=== PATIENT | female | born 1970 | race Caucasian/White ===

== ENCOUNTER 2024-03-22 12:56 | Emergency (ER) | payer MEDICARE, OTHER, SELFPAY ==
[2024-03-22 13:05] VITALS: BP 179/104
[2024-03-22 13:34] LABS: % Basophils 0.9 % (0-2); % Eosinophils 2.3 % (0-6); % Immature Granulocytes 0.4 % (0-0.5); % Lymphocytes 31.1 % (20.5-51.1); % Monocytes 4.3 % (1.7-9.3); Absolute Eosinophils 0.1 10^3/uL (0-0.7); Absolute Lymphocytes 1.5 10^3/uL (1.2-3.4); Absolute Monocytes 0.2 10^3/uL (0.1-0.6); Absolute Neutrophils 2.9 10^3/uL (1.4-6.5); Hematocrit 44.2 % (37.0-47.0); Hemoglobin 15.4 g/dL (12.0-16.0); Mean Corp Hgb Conc. 34.8 g/dL (33.0-37.0); Mean Corpuscular Volume 80.4 fL (81.0-99.0); Nucleated Red Blood Cells % 0 %; Platelet Count 110 10^3/uL (130-400); Red Cell Dist. Width 13.4 % (11.5-14.5); White Blood Cell Count 4.7 10^3/uL (4.8-10.8)
[2024-03-22 13:46] LABS: ALT (SGPT) 32 U/L (0-35); AST (SGOT) 32 U/L (14-36); Alkaline Phosphatase 81 U/L (38-126); Blood Urea Nitrogen 6 mg/dl (7-17); Calcium 9.1 mg/dl (8.4-10.2); Carbon Dioxide 29 mmol/L (22-30); Chloride 101 mmol/L (98-107); Glucose 179 mg/dl (70-99); Lipase 33 U/L (23-300); Potassium 3.1 mmol/L (3.5-5.1); Sodium 134 mmol/L (135-145); Total Bilirubin 0.9 mg/dl (0.2-1.3); Total Protein 6.4 g/dl (6.3-8.2); eGFR > 60.00
--- NOTE | 2024-03-22 15:35 | ED.GENMED ---
History of Present Illness
<Emma Casey PA-C - Last Filed: 03/24/24 09:16>
General
Chief Complaint: Abdominal Pain
Source: patient
Exam Limitations: none
Time Seen by Provider: 03/22/24 15:29
Nursing documentation reviewed up to this point in time: agreed with
Travel History
Have you had any contact with someone who has COVID-19?: No
Do you have any symptoms of coronavirus? Fever > 100 degrees, chills, cough, shortness of breath, sore throat, loss of taste or smell, muscle aches, or headache?: No
History of Present Illness
History of Present Illness:
pt is a 53 y/o F with h/o crohns disease s/p partial colectomy years ago
followed by dr. mcghee from GI
on stulera
here with vomiting 2-3 times a day for 10 days
she has had waxing and waning pain in her L abdomen near her ostmy
she thinks her ostomy has been less but not zero output
she has been in contact with her GI and has appt with them nex tweek
but she also hasn't been able to take her meds (she is missing her bp meds for rthe entire time)
she is on chronic onpiates, wears patch
Past History
<Emma Casey PA-C - Last Filed: 03/24/24 09:16>
Past History
ED Past Medical History: HTN, NIDDM and Other (Crohn's disease, rectovaginal fistula, PANKAJ, obesity)
ED Past Surgical History: Appendectomy, Bowel resection and Cholecystectomy
Social History
Tobacco: Smoker
Alcohol: Occasional
Drug: None
Personal: Other (Seperated)
Living: with family
Employment: Employed
Family History
Family History: Hypertension; Negative Sudden
Phy Exam
<Emma Casey PA-C - Last Filed: 03/24/24 09:16>
Physical Exam
Physical Exam:
GENERAL: Alert , uncomfortable at times
EYE: pupils equal and reactive
NECK: Supple
ENT: o/p clr, mmm.
CARDIAC: Regular rate and rhythm .
LUNGS: Clear breath sounds bilaterally, no acute respiratory distress, no wheezes/rales/rhonchi
ABDOMEN: Soft, obese, slightly distended, without focal tenderness, no r/g, no cvat, normal bowel sounds
L upper abd ostomy pink, stool in the bag;
NEUROLOGICAL: Alert and oriented, no focal neuro deficits
SKIN: Warm and dry, skin intact.
MUSCULOSKELETAL: No edema, well perfused. neg aliyah's sign
PSYCH: Normal and appropriate interaction.
Course
<Emma Casey PA-C - Last Filed: 03/24/24 09:16>
Orders/Labs/Results
Orders:
Orders
03/22/24 13:20
Complete Blood Count/With Diff Urgent
Comprehensive Metabolic Panel Urgent
Lipase Urgent
Magnesium Urgent
Comment: ADD ON
03/22/24 16:09
Electrocardiogram (*1) Urgent
Reason for Study: Abdominal Pain
CT Abd/Pel (IV only)-DH only Urgent
Comment:
Reason For Exam: left sided abd pain, h/o ostomy, vomiting x 10 day
EKG- Treatment ONCE
0.9% Sodium Chloride 1000 ml [Nss] 1,000 ml IV BOLUS
HYDROmorphone [Dilaudid] 1 mg IV NOW STA
Ondansetron Injectable [Zofran] 4 mg IV NOW STA
03/22/24 16:14
Troponin I Urgent
03/22/24 16:15
Potassium Chloride [KCl] 20 meq 0.9% Sodium Chloride 150 ml [Nss] 150 ml IV NOW
03/22/24 17:56
Add On- LAB Urgent
Tests Added?: magnesium
03/22/24 18:48
Metoclopramide [Reglan] 10 mg IV NOW STA
03/22/24 19:11
HYDROmorphone [Dilaudid] 0.5 mg IV NOW STA
Abnormal Lab Results
03/22/24
13:20
WBC 4.7 L 10^3/uL
(4.8-10.8)
RBC 5.50 H 10^6/uL
(4.20-5.40)
MCV 80.4 L fL
(81.0-99.0)
Plt Count 110 L 10^3/uL
(130-400)
MPV 11.0 H fL
(7.4-10.4)
Sodium 134 L mmol/L
(135-145)
Potassium 3.1 L mmol/L
(3.5-5.1)
BUN 6 L mg/dl
(7-17)
Creatinine 0.5 L mg/dL
(0.6-1.0)
Glucose 179 H mg/dl
(70-99)
Magnesium 1.4 L mg/dl
(1.6-2.3)
03/22/24 13:20
03/22/24 13:20
Vital Signs
Initial and Last Documented VS:
Initial Vital Signs
Temp Pulse Resp BP Pulse Ox
98.8 F 70 18 179/104 95
03/22/24 13:05 03/22/24 13:05 03/22/24 13:05 03/22/24 13:05 03/22/24 13:05
Last Documented Vital Signs
Temp Pulse Resp BP Pulse Ox
98.8 F 69 21 180/96 98
03/22/24 13:05 03/22/24 20:30 03/22/24 20:00 03/22/24 20:00 03/22/24 20:30
<Raphael Pederson PA-C - Last Filed: 03/22/24 20:38>
Orders/Labs/Results
Orders:
Orders
03/22/24 13:20
Complete Blood Count/With Diff Urgent
Comprehensive Metabolic Panel Urgent
Lipase Urgent
Magnesium Urgent
Comment: ADD ON
03/22/24 16:09
Electrocardiogram (*1) Urgent
Reason for Study: Abdominal Pain
CT Abd/Pel (IV only)-[facility] only Urgent
Comment:
Reason For Exam: left sided abd pain, h/o ostomy, vomiting x 10 day
EKG- Treatment ONCE
0.9% Sodium Chloride 1000 ml [Nss] 1,000 ml IV BOLUS
HYDROmorphone [Dilaudid] 1 mg IV NOW STA
Ondansetron Injectable [Zofran] 4 mg IV NOW STA
03/22/24 16:14
Troponin I Urgent
03/22/24 16:15
Potassium Chloride [KCl] 20 meq 0.9% Sodium Chloride 150 ml [Nss] 150 ml IV NOW
03/22/24 17:56
Add On- LAB Urgent
Tests Added?: magnesium
03/22/24 18:48
Metoclopramide [Reglan] 10 mg IV NOW STA
03/22/24 19:11
HYDROmorphone [Dilaudid] 0.5 mg IV NOW STA
Abnormal Lab Results
03/22/24
13:20
WBC 4.7 L 10^3/uL
(4.8-10.8)
RBC 5.50 H 10^6/uL
(4.20-5.40)
MCV 80.4 L fL
(81.0-99.0)
Plt Count 110 L 10^3/uL
(130-400)
MPV 11.0 H fL
(7.4-10.4)
Sodium 134 L mmol/L
(135-145)
Potassium 3.1 L mmol/L
(3.5-5.1)
BUN 6 L mg/dl
(7-17)
Creatinine 0.5 L mg/dL
(0.6-1.0)
Glucose 179 H mg/dl
(70-99)
Magnesium 1.4 L mg/dl
(1.6-2.3)
03/22/24 13:20
03/22/24 13:20
Vital Signs
Initial and Last Documented VS:
Initial Vital Signs
Temp Pulse Resp BP Pulse Ox
98.8 F 70 18 179/104 95
03/22/24 13:05 03/22/24 13:05 03/22/24 13:05 03/22/24 13:05 03/22/24 13:05
Last Documented Vital Signs
Temp Pulse Resp BP Pulse Ox
98.8 F 69 21 180/96 98
03/22/24 13:05 03/22/24 20:30 03/22/24 20:00 03/22/24 20:00 03/22/24 20:30
<Emma Casey PA-C - Last Filed: 03/24/24 09:16>
MDM/Problems Addressed
Differential Diagnosis Includes:
gastroenteritis, GERD, SBO, ileus, crohns flare
MDM/Problems Addressed:
53 y/o F with h/o crohns on stulera
here with 10 days of nauea/vomiting, approx 2-3 times per day, limiting her oral intake somewhat, she is still able to eat some but says she has vomited a lot of her medications so she stopped taking them
she has zofran which hasn't really helped
she called dher GI and has appt next week
but she has also not been taking her opiate pain meds, she wears a patch but hasn't hd her oral meds because of vomiting
she feels dehydrated
on exam her lips are dry, she is hypertensive, intermittently in pain but without abdomianl focal tenderness
she c/o pain more on her left side near ostomy
unable to tolerate PO contrast
will iimage with ct with iv contrast
appreciate her labs, normal wb, k 3.1 repleted
ekg nonischemic, trop neg
lipase normal
pending CTAP
signed out to gamal parr
<Emma Casey PA-C - Last Filed: 03/24/24 09:16>
*Critical Care Note
Total Time (30-74mins, 75-104mins- exclusive of procedures): Not Applicable
<Raphael Pederson PA-C - Last Filed: 03/22/24 20:38>
Update Note
Update Note:
1800: Assumed care of this patient from Emma Casey PA-C pending CT scan read. Patient with a history of Crohn's disease reporting vomiting greater than 1 week as well as left lower quadrant pain. Patient does not report any similarity to
past Crohn's flareups. Still having some output in the ostomy bag. No fevers.
2004: Patient reassessed, still complaining of mild pain but this is improved after repeat dosing of antiemetics and opiates. Electrolytes were repleted and she was given IV fluids. She is comfortable discharge to home and outpatient GI follow-up
given normal CT scan
ED Attending Note
<Emma Casey PA-C - Last Filed: 03/24/24 09:16>
-
Portions of this chart may have been created with voice recognition software.� Occasional wrong word or��sound alike� substitutions may have occurred due to the inherent limitations of voice recognition software.
Discharge Plan
Departure
Patient Disposition: Home (Routine Discharge)
Date of Disposition: 03/22/24
Time of Disposition: 20:36
Patient with high blood pressure during this ER visit?: Yes
Discharge Problem:
Acute left lower quadrant pain, Intractable vomiting
Instructions: Nausea and Vomiting, Adult (DC)
Prescriptions:
New
metoclopramide HCl [Reglan] 10 mg tablet
10 mg PO Q8HPRN PRN (Reason: nausea and vomiting) Qty: 9 0RF
No Action
gabapentin 400 MG capsule
400 mg PO QID
amlodipine 5 MG tablet
5 mg PO DAILY
Stelara 90 MG/ML syringe
90 mg SQ Q8W
Rx Instructions:
Last injection 05/26/2023
tizanidine 2 mg tablet
4 mg PO HS
glimepiride 4 mg tablet
2 mg PO DAILY
lisinopril 40 mg Tablet
40 mg PO DAILY
ondansetron HCl 4 mg Tablet
4 mg PO TIDPRN PRN (Reason: nausea)
duloxetine [Cymbalta] 60 mg Capsule,Delayed Release(Dr/Ec)
60 mg PO HS
Rx Instructions:
07/11/23 patient is taking with 30mg
atorvastatin [Lipitor] 10 mg Tablet
10 mg PO HS
cholecalciferol (vitamin D3) [Vitamin D3] 25 mcg (1,000 unit) Capsule
25 mcg PO DAILY
duloxetine 30 mg Capsule,Delayed Release(Dr/Ec)
30 mg PO HS
Rx Instructions:
07/11/23 patient is taking with 60mg
hydrocodone-acetaminophen 5-325 mg Tablet
1 tab PO BID PRN (Reason: severe pain)
buprenorphine [Butrans] 10 mcg/hour patch weekly
10 mcg transdermal SA
Rx Instructions:
patient applied on 07/02/23 and is still wearing it on righ shoulder
dicyclomine 10 mg Capsule
10 mg PO QIDPRN PRN (Reason: abdominal pain) Qty: 60 0RF
Referrals:
Imer Harden MD [Family Provider] -
Interventions
Interventions:
*Risk Screen - Suicide Last Done: 03/22/24 13:05
*General Assessment Last Done: 03/22/24 13:05
*Neglect/Abuse Screening Last Done: 03/22/24 13:05
*ED COVID-19 Vaccine History Last Done: 03/22/24 13:05
*Nursing Disposition Last Done: 03/22/24 21:22
XY-Kennpu-Szgpulxxeg Assessment Last Done: 03/22/24 16:08
Discharge Date and Time
Discharge Date/Time: 03/22/24 21:22
Print Language: BOLIVIAN
[2024-03-22 15:57] VITALS: BP 187/115
[2024-03-22] MEDS: DILAUDID 1 MG IV (16:15)
[2024-03-22] MEDS: ZOFRAN 4 MG IV (16:15)
[2024-03-22] MEDS: NSS 1000 IV (16:15)
[2024-03-22] MEDS: KCL 160 MEQ IV (16:33)
[2024-03-22 16:49] LABS: Troponin I < 0.012 ng/ml
[2024-03-22 17:31] VITALS: BP 149/108
[2024-03-22 18:00] VITALS: BP 164/99
[2024-03-22 18:37] LABS: Magnesium 1.4 mg/dl (1.6-2.3)
[2024-03-22 19:00] VITALS: BP 176/103
[2024-03-22] MEDS: DILAUDID 0.5 MG IV (19:17)
[2024-03-22] MEDS: REGLAN 10 MG IV (19:17)
[2024-03-22 20:00] VITALS: BP 180/96
== END 2024-03-22 21:22 | disposition home or self-care (01) ==
LOC: EMR 12:56
PROVIDERS: Emergency Medicine; Physician Assistant; EMERGENCY PHYSICIAN Emergency Medicine; FAMILY PHYSICIAN Family Medicine
DX: R10.32 Left lower quadrant pain (principal); R11.10 Vomiting, unspecified; K50.90 Crohn's disease, unspecified, without complications; I10 Essential (primary) hypertension
CPT/HCPCS: 99285; 96374; 96375 ×3; 96361; 96376; 74177; 80053; 83690; 83735; 84484; 85025; 93005; Q9967

== ENCOUNTER 2024-04-11 20:40 | Emergency (ER) | payer MEDICARE, OTHER, SELFPAY ==
[2024-04-11 20:52] VITALS: BP 188/99
[2024-04-11 23:15] LABS: Urine Albumin Negative (Neg - Trace); Urine Bilirubin Negative (Negative); Urine Character Clear (Clear); Urine Color Yellow; Urine Glucose 3+ (Negative); Urine Ketone Negative (Negative); Urine Leukocyte Negative (Negative); Urine Nitrite Negative (Negative); Urine Occult Blood Negative (Negative); Urine Urobilinogen Negative (Neg - 1+)
[2024-04-11 23:16] LABS: % Eosinophils 3.2 % (0-6); % Immature Granulocytes 0.3 % (0-0.5); % Lymphocytes 38.3 % (20.5-51.1); % Neutrophils 51.2 % (42.2-75.2); Absolute Basophils 0.1 10^3/uL (0-0.2); Absolute Eosinophils 0.2 10^3/uL (0-0.7); Absolute Lymphocytes 2.4 10^3/uL (1.2-3.4); Absolute Monocytes 0.4 10^3/uL (0.1-0.6); Absolute Neutrophils 3.2 10^3/uL (1.4-6.5); Hematocrit 42.1 % (37.0-47.0); Hemoglobin 14.9 g/dL (12.0-16.0); Mean Corp Hgb Conc. 35.4 g/dL (33.0-37.0); Mean Corpuscular Hgb 27.8 pg (27.0-31.0); Mean Corpuscular Volume 78.5 fL (81.0-99.0); Mean Platelet Volume 11.1 fL (7.4-10.4); Nucleated Red Blood Cells % 0 %; Platelet Count 127 10^3/uL (130-400); Red Blood Cell Count 5.36 10^6/uL (4.20-5.40); Red Cell Dist. Width 13.8 % (11.5-14.5); White Blood Cell Count 6.2 10^3/uL (4.8-10.8)
[2024-04-11 23:31] LABS: Lactic Acid 1.3 mmol/L (0.7-2.0)
[2024-04-11 23:39] LABS: ALT (SGPT) 31 U/L (0-35); AST (SGOT) 32 U/L (14-36); Albumin 4.1 g/dl (3.5-5.0); Alkaline Phosphatase 117 U/L (38-126); Blood Urea Nitrogen 20 mg/dl (7-17); Calcium 9.2 mg/dl (8.4-10.2); Carbon Dioxide 24 mmol/L (22-30); Chloride 104 mmol/L (98-107); Glucose 166 mg/dl (70-99); Lipase 82 U/L (23-300); Potassium 3.5 mmol/L (3.5-5.1); Sodium 138 mmol/L (135-145); Total Bilirubin 0.6 mg/dl (0.2-1.3); Total Protein 6.7 g/dl (6.3-8.2); eGFR > 60.00
--- NOTE | 2024-04-12 00:46 | ED.GENMED ---
History of Present Illness
<GLORIA Almeida - Last Filed: 04/12/24 05:40>
General
Chief Complaint: Abdominal Pain
Source: patient and records
Exam Limitations: none
Time Seen by Provider: 04/12/24 00:31
Travel History
Have you had any contact with someone who has COVID-19?: No
Do you have any symptoms of coronavirus? Fever > 100 degrees, chills, cough, shortness of breath, sore throat, loss of taste or smell, muscle aches, or headache?: No
History of Present Illness
History of Present Illness:
53 year old female with hx of Crohns s/p colectomy in 2006, didi, appy, DM, HTN, PANKAJ, chronic back pain on opioids who presents for worsening of R abdominal pain that began 1899. Pt was seen here on 03/22/24 for nausea and vomiting. CT of
the abdomen was WNL. Electrolytes were repleted. Pt given antiemetics and opiates and was discharged. Since then, pt has had intermittent nausea and vomiting. She had a telehealth appointment with her GI Dr. Ardon who sent pt out for stool culture
which she sent submitted to the lab yesterday. Pt has chronic dull lower abdominal pain. Yesterday she developed quirino RLQ abdominal pain that radiates across her abdomen. Pain is 10/10 currently. She reports nausea. No vomiting today. She reports
diarrhea output from her ostomy. Denies fevers/chills, cough, chest pain, SOB, bloody stool, dysuria, hematuria, flank pain. She took a dose of hydrocodone-acetaminophen Tuesday at 1600 with minimal relief of her pain.
Past History
<GLORIA Almeida - Last Filed: 04/12/24 05:40>
Past History
ED Past Medical History: HTN, NIDDM and Other (Crohn's disease, rectovaginal fistula, PANKAJ, obesity)
ED Past Surgical History: Appendectomy, Bowel resection and Cholecystectomy
Social History
Tobacco: Smoker
Alcohol: Occasional
Drug: None
Personal: Other (Seperated)
Living: with family
Employment: Employed
Family History
Family History: Hypertension; Negative Sudden
Review of Systems
<Aye Swanson [facility] - Last Filed: 04/12/24 05:40>
Review of Systems
Allergies reviewed?: Yes
All Other Systems: ROS reviewed and negative except as documented in HPI and ROS
Constitutional: Reports no symptoms
EENT: Reports no symptoms
Respiratory: Reports no symptoms
Cardiac: Reports no symptoms
ABD/GI: Reports abdominal pain, nausea and diarrhea
: Reports no symptoms
Musculoskeletal: Reports no symptoms
Skin: Reports no symptoms
Neurological: Reports no symptoms
Endocrine: Reports no symptoms
Hematologic/Lymphatic: Reports no symptoms
Psychiatric: Reports no symptoms
Phy Exam
<Aye Swanson [facility] - Last Filed: 04/12/24 05:40>
General Physical Exam
General Presentation: moderate distress (due to pain)
General age: appears stated age
General Skin: warm and dry
General Habitus: obese
General Mental: alert
General Hydration: appears well hydrated
Cardiovascular Exam
Cardiovascular Exam: regular rate/rhythm, no edema, no gallop and no murmur
Pulmonary Exam
Pulmonary Exam: lungs clear, no respiratory distress, no rales, no crackles, no rhonchi, no wheezing and no cough
Gastrointestinal Exam
Gastrointestinal Exam: normal bowel sounds, soft, no pulsatile mass, non distended and surgical scar (multiple across the abdomen)
External Findings: colostomy (LUQ)
Palpation: left lower quadrant: Mild tenderness and right lower quadrant: Moderate tenderness
Neurological Exam
Neurological Exam: alert and oriented x3
Skin Exam
Skin Exam: normal color and warm/dry
Psychiatric Exam
Psychiatric Exam: normal mood/affect
Course
<GLORIA Almeida - Last Filed: 04/12/24 05:40>
Orders/Labs/Results
Orders:
Orders
04/11/24 23:05
CBC/With Diff [Complete Blood Count/With Diff] Urgent
Comprehensive Metabolic Panel Urgent
Lactic Acid Urgent
Lipase Urgent
Blood Culture Urgent
ERIKA Source: Blood/Venous
Specimen Description:
04/11/24 23:08
UA Reflex to Culture [Urinalysis Reflex To Culture] Urgent
Date Specimen was Collected: 04/11/24
Time Specimen was Collected: 23:07
04/12/24 00:54
CT Abd/pel W Iv And Oral Contr Urgent
Comment:
Reason For Exam: lower abd pain, diarrhea, weight loss
0.9% Sodium Chloride 1000 ml [Nss] 1,000 ml IV BOLUS
HYDROmorphone [Dilaudid] 0.5 mg IV NOW STA
Iohexol [Omnipaque] See Protocol PO NOW STA
Ondansetron Injectable [Zofran] 4 mg IV NOW STA
04/12/24 03:01
HYDROmorphone [Dilaudid] 0.5 mg .ROUTE .STK-MED ONE
04/12/24 03:20
HYDROmorphone [Dilaudid] 0.5 mg IV NOW STA
Abnormal Lab Results
04/11/24 04/11/24
23:05 23:08
MCV 78.5 L fL
(81.0-99.0)
Plt Count 127 L 10^3/uL
(130-400)
MPV 11.1 H fL
(7.4-10.4)
BUN 20 H mg/dl
(7-17)
Glucose 166 H mg/dl
(70-99)
Urine Glucose 3+ A
(Negative)
04/11/24 23:05
04/11/24 23:05
Vital Signs
Initial and Last Documented VS:
Initial Vital Signs
Temp Pulse Resp BP Pulse Ox
98.6 F 69 18 188/99 96
04/11/24 20:52 04/11/24 20:52 04/11/24 20:52 04/11/24 20:52 04/11/24 20:52
Last Documented Vital Signs
Temp Pulse Resp BP Pulse Ox
98.6 F 69 18 133/75 96
04/11/24 20:52 04/11/24 20:52 04/11/24 20:52 04/12/24 04:32 04/11/24 20:52
<Adia Barbosa, DO - Last Filed: 04/12/24 04:54>
Orders/Labs/Results
Orders:
Orders
04/11/24 23:05
CBC/With Diff [Complete Blood Count/With Diff] Urgent
Comprehensive Metabolic Panel Urgent
Lactic Acid Urgent
Lipase Urgent
Blood Culture Urgent
ERIKA Source: Blood/Venous
Specimen Description:
04/11/24 23:08
UA Reflex to Culture [Urinalysis Reflex To Culture] Urgent
Date Specimen was Collected: 04/11/24
Time Specimen was Collected: 23:07
04/12/24 00:54
CT Abd/pel W Iv And Oral Contr Urgent
Comment:
Reason For Exam: lower abd pain, diarrhea, weight loss
0.9% Sodium Chloride 1000 ml [Nss] 1,000 ml IV BOLUS
HYDROmorphone [Dilaudid] 0.5 mg IV NOW STA
Iohexol [Omnipaque] See Protocol PO NOW STA
Ondansetron Injectable [Zofran] 4 mg IV NOW STA
04/12/24 03:01
HYDROmorphone [Dilaudid] 0.5 mg .ROUTE .STK-MED ONE
04/12/24 03:20
HYDROmorphone [Dilaudid] 0.5 mg IV NOW STA
Abnormal Lab Results
04/11/24 04/11/24
23:05 23:08
MCV 78.5 L fL
(81.0-99.0)
Plt Count 127 L 10^3/uL
(130-400)
MPV 11.1 H fL
(7.4-10.4)
BUN 20 H mg/dl
(7-17)
Glucose 166 H mg/dl
(70-99)
Urine Glucose 3+ A
(Negative)
04/11/24 23:05
04/11/24 23:05
Vital Signs
Initial and Last Documented VS:
Initial Vital Signs
Temp Pulse Resp BP Pulse Ox
98.6 F 69 18 188/99 96
04/11/24 20:52 04/11/24 20:52 04/11/24 20:52 04/11/24 20:52 04/11/24 20:52
Last Documented Vital Signs
Temp Pulse Resp BP Pulse Ox
98.6 F 69 18 133/75 96
04/11/24 20:52 04/11/24 20:52 04/11/24 20:52 04/12/24 04:32 04/11/24 20:52
<GLORIA Almeida - Last Filed: 04/12/24 05:40>
MDM/Problems Addressed
Differential Diagnosis Includes:
Crohn's flare, SBO, ischemic bowel
MDM/Problems Addressed:
53 year old female who present with RLQ abdominal pain that began Tuesday.
Chronic conditions affecting care: DM, HTN, Previous abdomnial surgery (cholecystectomy, appendectomy, bowel resection) and Other (Crohns, chronic back pain)
<GLORIA Almeida - Last Filed: 04/12/24 05:40>
*Critical Care Note
Total Time (30-74mins, 75-104mins- exclusive of procedures): Not Applicable
<Adia Barbosa DO - Last Filed: 04/12/24 04:54>
*Radiology
Radiology exam reviewed: radiology read reviewed
*Pulse Oximetry
Patient hypoxic: no
ED Attending Note
<GLORIA Almeida - Last Filed: 04/12/24 05:40>
-
Portions of this chart may have been created with voice recognition software.� Occasional wrong word or��sound alike� substitutions may have occurred due to the inherent limitations of voice recognition software.
<Adia Barbosa DO - Last Filed: 04/12/24 04:54>
ED Attending Note
Patient seen and examined by attending physician: Yes
I performed the substantive portion of visit, reviewed & personally made and approve the management plan that is documented in note by myself or CORNELIO.: Yes
I performed a history and physical exam of patient and discussed management with resident, I reviewed resident's note and agree with documented findings and plan of care.: Yes
ED Attending Note:
This is a 53-year-old woman who has history of Crohn's disease, prior history of partial colectomy with colostomy. Maintained on Stelara and follows with GI, Dr. Ardon.
She does admit to some chronic mild lower abdominal pain and is prescribed Vicodin as well as had been maintained on Butrans patch which was recently discontinued.
She complains of persistent lower abdominal pain, intermittent vomiting, significant diarrhea and reports approximately 20 to 30 pound unintentional weight loss over the past month.
She has not had a fever nor chills. She denies bloody stools.
She was evaluated in this ED March 22 and at that time complaining of primarily left lower quadrant pain as well as significant nausea and vomiting. Labs showed mild hypokalemia, CT abdomen pelvis with IV contrast only was unremarkable.
Since that time she admits that nausea and vomiting have improved but she does continue with sporadic episodes of nonbloody vomitus, continues with diarrhea and lower abdominal pain. Stool cultures were sent out yesterday as per GI request.
Generalized lower abdominal pain has worsened, especially tonight and primarily left lower quadrant. She took a Vicodin earlier today without improvement in pain.
GENERAL: 53-year-old woman appears somewhat older than stated age, bright and alert, pleasant, appears in no acute distress.
EYE: anicteric
NECK: Supple, nontender, no meningismus, no significant adenopathy.
ENT: oral mucosa is moist. No rhinorrhea.
CARDIAC: Regular rate and rhythm. no murmur.
LUNGS: Clear breath sounds bilaterally, no acute respiratory distress, no wheezes/rales/rhonchi
ABDOMEN: Soft, nondistended, moderate generalized tenderness mid to lower abdomen without rebound or guarding or rigidity, mildly hyperactive bowel sounds. Colostomy left lower quadrant with small amount of liquid stool within the bag. no cvat.
NEUROLOGICAL: Alert and oriented x3, no focal neuro deficits.
SKIN: Warm and dry, normal color, skin intact. No rash.
MUSCULOSKELETAL: No C/C/E. peripheral pulses are full and equal b/l. No palpable tenderness.
PSYCH: Normal and appropriate interaction.
Concern for acute Crohn's flare, infectious colitis, partial small bowel obstruction, opioid withdrawal syndrome as Butrans patch was recently discontinued.
Labs thus far reassuring with normal white blood cell count of 6.2. Normal H&H. Chemistries are unremarkable.
Urinalysis is unremarkable save for +3 glucose. Specific gravity is normal at 1.020.
Will medicate for pain and nausea, initiate IV fluids and will plan for CT abdomen pelvis with oral and IV contrast.
04/12/[address] abdomen pelvis shows no bowel obstruction or perforation. There is evidence of subtotal colectomy with left lower quadrant colostomy. No evidence of inflammatory bowel disease.
As above, labs are reassuring, within normal limits.
I suspect an exacerbation of chronic abdominal pain but there is no evidence of exacerbation of inflammatory bowel disease.
Recommend follow-up with manager foreign for further evaluation.
Discharge Plan
Departure
Patient Disposition: Home (Routine Discharge)
Date of Disposition: 04/12/24
Time of Disposition: 04:52
Patient with high blood pressure during this ER visit?: No
Condition: Good
Discharge Problem:
acute on chronic abdominal pain
Instructions: Abdominal Pain
Prescriptions:
No Action
gabapentin 400 MG capsule
400 mg PO QID
amlodipine 5 MG tablet
5 mg PO DAILY
Stelara 90 MG/ML syringe
90 mg SQ Q8W
Rx Instructions:
Last injection 05/26/2023
tizanidine 2 mg tablet
4 mg PO HS
glimepiride 4 mg tablet
2 mg PO DAILY
lisinopril 40 mg Tablet
40 mg PO DAILY
ondansetron HCl 4 mg Tablet
4 mg PO TIDPRN PRN (Reason: nausea)
duloxetine [Cymbalta] 60 mg Capsule,Delayed Release(Dr/Ec)
60 mg PO HS
Rx Instructions:
07/11/23 patient is taking with 30mg
atorvastatin [Lipitor] 10 mg Tablet
10 mg PO HS
cholecalciferol (vitamin D3) [Vitamin D3] 25 mcg (1,000 unit) Capsule
25 mcg PO DAILY
duloxetine 30 mg Capsule,Delayed Release(Dr/Ec)
30 mg PO HS
Rx Instructions:
07/11/23 patient is taking with 60mg
hydrocodone-acetaminophen 5-325 mg Tablet
1 tab PO BID PRN (Reason: severe pain)
buprenorphine [Butrans] 10 mcg/hour patch weekly
10 mcg transdermal SA
Rx Instructions:
patient applied on 07/02/23 and is still wearing it on righ shoulder
dicyclomine 10 mg Capsule
10 mg PO QIDPRN PRN (Reason: abdominal pain) Qty: 60 0RF
metoclopramide HCl [Reglan] 10 mg tablet
10 mg PO Q8HPRN PRN (Reason: nausea and vomiting) Qty: 9 0RF
Referrals:
Elvira Ardon MD [Active] - Call in 1-3 days for appt
Imer Harden MD [Family Provider] -
Interventions
Interventions:
*Risk Screen - Suicide Last Done: 04/11/24 20:52
*General Assessment Last Done: 04/11/24 20:52
*Neglect/Abuse Screening Last Done: 04/11/24 20:52
ED- Fall Risk Assessment Last Done: 04/11/24 23:16
*Nursing Disposition Last Done: 04/12/24 05:12
FJ-Lcpvgd-Ttaepfebrb Assessment Last Done: 04/11/24 23:14
Discharge Date and Time
Discharge Date/Time: 04/12/24 05:14
Print Language: TANZANIAN
[2024-04-12 00:58] VITALS: BP 149/85
[2024-04-12] MEDS: ZOFRAN 4 MG IV (01:07)
[2024-04-12] MEDS: DILAUDID 0.5 MG IV ×2 (01:07→03:20)
[2024-04-12] MEDS: OMNIPAQUE 50 ML PO (01:08)
[2024-04-12] MEDS: NSS 1000 IV (01:10)
[2024-04-12 02:00] VITALS: BP 137/73
[2024-04-12 03:00] VITALS: BP 140/81
[2024-04-12 04:32] VITALS: BP 133/75
== END 2024-04-12 05:14 | disposition home or self-care (01) ==
LOC: EMR 20:40
PROVIDERS: Emergency Medicine; EMERGENCY PHYSICIAN Emergency Medicine; FAMILY PHYSICIAN Family Medicine
DX: R10.31 Right lower quadrant pain (principal); R11.0 Nausea; R19.7 Diarrhea, unspecified; G89.29 Other chronic pain; K50.90 Crohn's disease, unspecified, without complications; E11.9 Type 2 diabetes mellitus without complications; E66.9 Obesity, unspecified; M54.9 Dorsalgia, unspecified; G47.33 Obstructive sleep apnea (adult) (pediatric); I10 Essential (primary) hypertension; F17.200 Nicotine dependence, unspecified, uncomplicated; Z93.3 Colostomy status; Z79.891 Long term (current) use of opiate analgesic; Z90.49 Acquired absence of other specified parts of digestive tract; Z98.0 Intestinal bypass and anastomosis status; Z88.5 Allergy status to narcotic agent; Z88.8 Allergy status to other drugs, medicaments and biological substances; Z91.040 Latex allergy status
CPT/HCPCS: 99285; 96374; 96375; 96361; 96376; 74177; 80053; 81003; 83605; 83690; 85025; 87040; Q9967

== ENCOUNTER 2024-04-15 07:55 | Emergency (ER) | payer MEDICARE, OTHER, SELFPAY ==
[2024-04-15 08:10] VITALS: BP 197/126
--- NOTE | 2024-04-15 09:25 | ED.GENMED ---
History of Present Illness
General
Chief Complaint: Musculo-Skeletal Complaint
Source: patient
Time Seen by Provider: 04/15/24 09:02
Travel History
Have you had any contact with someone who has COVID-19?: No
Do you have any symptoms of coronavirus? Fever > 100 degrees, chills, cough, shortness of breath, sore throat, loss of taste or smell, muscle aches, or headache?: No
History of Present Illness
History of Present Illness:
This patient is a 53-year-old female who says that yesterday at approximately noon while power washing she slipped down approximately 4-5 steps, landing in the supine position. Since that time, she has noted pain mostly in the left knee
particularly with standing or certain range of motion, but also less so in the interscapular, and right lateral neck area. She denies numbness, tingling, loss of consciousness, headache, focal weakness, central neck pain, abdominal pain, chest
pain, dyspnea, bleeding, change in vision, change in speech, dizziness, or other complaints. She is having difficulty walking which primarily prompted her visit here.
Past History
Past History
ED Past Medical History: HTN, NIDDM and Other (Crohn's disease, rectovaginal fistula, PANKAJ, obesity)
ED Past Surgical History: Appendectomy, Bowel resection, Cholecystectomy and Other (Colostomy)
Social History
Tobacco: Smoker
Alcohol: Occasional
Drug: None
Living: with family
Employment: Employed
Family History
Family History: Hypertension; Negative Sudden
Phy Exam
Physical Exam
Physical Exam:
GENERAL: Alert , in no apparent distress
EYE: pupils equal and reactive, EOMI, no photophobia
NECK: Supple, no significant adenopathy, no midline tenderness, no swelling, trachea midline, no bruising or abnormalities noted. Patient does note mild discomfort with turning head to right at the right SCM area.
ENT: o/p clr, mmm, no seaman, no raccoon, no signs of head or facial injury noted.
CARDIAC: Regular rate and rhythm .
LUNGS: Clear breath sounds bilaterally, no acute respiratory distress, no wheezes/rales/rhonchi
ABDOMEN: Soft, without focal tenderness, no r/g, colostomy noted
NEUROLOGICAL: Alert and oriented, no focal neuro deficits, motor 5 out of 5, sensory intact, cranial nerves II through XII intact
SKIN: Warm and dry, skin intact.
MUSCULOSKELETAL: Left knee with effusion noted, no warmth redness break in skin or other abnormalities. She has tenderness to palpation noted at the medial aspect of the proximal tibia as well as the lateral aspect of the proximal fibula with
palpation. No deformity. Range of motion limited due to discomfort well perfused. 2+ DP pulses noted. Pt without ttp of prox femur/hip however c/o mild discomfort there with ROM of hip.
BACK: min ttp superior t spine, no bruising
PSYCH: Normal and appropriate interaction.
Course
Orders/Labs/Results
Orders:
Orders
04/15/24 08:14
Knee, Left 4 or More Views [CR Knee - Left 4 Or More View*] Urgent
Comment:
Reason For Exam: pain after a fall
04/15/24 09:22
Crutches-Treatment ONCE
Knee Immobilizer Left-Treatmen ONCE
Oxycodone [Roxicodone] 5 mg PO NOW STA
CR Thoracic Spine 3 Views Urgent
Reason For Exam: fall
Cervical Spine 4 or 5 Vw [CR Cervical Spine 4 Or 5 Vw] Urgent
Comment:
Reason For Exam: fall
Pelvis, 1 or 2 Views CR [CR Pelvis - 1 Or 2 Views ] Urgent
Comment:
Reason For Exam: fall
04/15/24 10:58
Amlodipine [Norvasc] 10 mg PO NOW STA
Lisinopril [Zestril] 40 mg PO NOW STA
Vital Signs
Initial and Last Documented VS:
Initial Vital Signs
Temp Pulse Resp BP Pulse Ox
98.8 F 79 20 197/126 95
04/15/24 08:10 04/15/24 08:10 04/15/24 08:10 04/15/24 08:10 04/15/24 08:10
Last Documented Vital Signs
Temp Pulse Resp BP Pulse Ox
98.8 F 79 20 195/114 95
04/15/24 08:10 04/15/24 08:10 04/15/24 08:10 04/15/24 10:52 04/15/24 08:10
*Critical Care Note
Total Time (30-74mins, 75-104mins- exclusive of procedures): Not Applicable
Update Note
Update Note:
Patient presents to the Emergency Department with status post fall
Number and Complexity of Problems Addressed at the Encounter
� Chronic conditions affecting care:
� Acute Exacerbation and/or Progression of Chronic Illness:
� Differential Diagnosis includes: But not limited to knee fracture, knee sprain, vertebral fracture, etc.
Amount and/or Complexity of Data to be Reviewed and Analyzed
� I performed an independent evaluation of and my interpretation is:
EKG:
CT:
Xrays:read by me pelvis/t c spine, knee---joint effusion notd L knee, no fx, degen changes of spine
Laboratory Studies:
Other:
� Review of other/old records reveals:
� Clinical information was obtained by an independent historian:
� Prescriptions/Medications Considered but not given:
� Further testing considered but not performed:
Risk of Complications and/or Morbidity or Mortality of Patient Management
� Social determinants of health affecting care:
� Discussion with other providers (PCP, Hospitalists, Consultants, etc):
� Escalation of care including admission/observation vs risk of discharge considered:Pt will be given knee imm, crutches, ortho f/u.
ED Attending Note
-
Portions of this chart may have been created with voice recognition software.� Occasional wrong word or��sound alike� substitutions may have occurred due to the inherent limitations of voice recognition software.
Discharge Plan
Departure
Patient Disposition: Home (Routine Discharge)
Date of Disposition: 04/15/24
Time of Disposition: 11:29
Patient with high blood pressure during this ER visit?: Yes
Condition: Good
Discharge Problem:
Knee strain
Instructions: Knee Immobilizer (DC), Knee Sprain ED, How to use crutches, BLOOD PRESSURE
Prescriptions:
No Action
gabapentin 400 MG capsule
400 mg PO QID
amlodipine 5 MG tablet
5 mg PO DAILY
Stelara 90 MG/ML syringe
90 mg SQ Q8W
Rx Instructions:
Last injection 05/26/2023
tizanidine 2 mg tablet
4 mg PO HS
glimepiride 4 mg tablet
2 mg PO DAILY
lisinopril 40 mg Tablet
40 mg PO DAILY
ondansetron HCl 4 mg Tablet
4 mg PO TIDPRN PRN (Reason: nausea)
duloxetine [Cymbalta] 60 mg Capsule,Delayed Release(Dr/Ec)
60 mg PO HS
Rx Instructions:
07/11/23 patient is taking with 30mg
atorvastatin [Lipitor] 10 mg Tablet
10 mg PO HS
cholecalciferol (vitamin D3) [Vitamin D3] 25 mcg (1,000 unit) Capsule
25 mcg PO DAILY
duloxetine 30 mg Capsule,Delayed Release(Dr/Ec)
30 mg PO HS
Rx Instructions:
07/11/23 patient is taking with 60mg
hydrocodone-acetaminophen 5-325 mg Tablet
1 tab PO BID PRN (Reason: severe pain)
buprenorphine [Butrans] 10 mcg/hour patch weekly
10 mcg transdermal SA
Rx Instructions:
patient applied on 07/02/23 and is still wearing it on righ shoulder
dicyclomine 10 mg Capsule
10 mg PO QIDPRN PRN (Reason: abdominal pain) Qty: 60 0RF
metoclopramide HCl [Reglan] 10 mg tablet
10 mg PO Q8HPRN PRN (Reason: nausea and vomiting) Qty: 9 0RF
Referrals:
Imer Harden MD [Family Provider] -
Dominic Mitchell MD [Active] - Next open appointment
Activity Restrictions/Additional Instructions:
YOUR KNEE DOES NOT DEMONSTRATE A FRACTURE TODAY, HOWEVER IT IS POSSIBLE THAT YOU SUFFERED INJURY TO THE LIGAMENTS/MENISCUS. PLEASE FOLLOW UP WITH YOUR DOCTOR DIRECTED. IF YOU DEVELOP FEVER, INCREASING/NEW PAIN, NUMBNESS, GET WORSE, OR OTHER
WORRISOME SIGNS, GO TO THE ER IMMEDIATELy!
YOUR BLOOD PRESSURE WAS ALSO NOTED TO BE ELEVATED. TAKE YOUR MEDICATINO DIRECTED AND HAVE IT RECHECKED WITH YOUR PCP TOMORROW.
Interventions
Interventions:
*General Assessment Last Done: 04/15/24 09:33
ED- Fall Risk Assessment Last Done: 04/15/24 09:33
ED-Musculoskeletal Assessment Last Done: 04/15/24 09:33
Discharge Date and Time
Print Language: SWEDISH
[2024-04-15] MEDS: ROXICODONE 5 MG PO (09:30)
[2024-04-15 10:52] VITALS: BP 195/114
[2024-04-15] MEDS: NORVASC 10 MG PO (11:01)
[2024-04-15] MEDS: ZESTRIL 40 MG PO (11:01)
== END 2024-04-15 12:03 | disposition home or self-care (01) ==
LOC: EMR 07:55
PROVIDERS: EMERGENCY PHYSICIAN Emergency Medicine; FAMILY PHYSICIAN Family Medicine
DX: S83.92XA Sprain of unspecified site of left knee, initial encounter (principal); W01.0XXA Fall on same level from slipping, tripping and stumbling without subsequent striking against object, initial encounter; E11.9 Type 2 diabetes mellitus without complications; E66.9 Obesity, unspecified; I10 Essential (primary) hypertension; G47.33 Obstructive sleep apnea (adult) (pediatric); F17.200 Nicotine dependence, unspecified, uncomplicated; K50.90 Crohn's disease, unspecified, without complications; Z82.49 Family history of ischemic heart disease and other diseases of the circulatory system; Z90.49 Acquired absence of other specified parts of digestive tract; Z93.3 Colostomy status; Z98.1 Arthrodesis status
CPT/HCPCS: 99283; 29505; 72050; 72072; 72170; 73564

== ENCOUNTER 2024-04-25 13:16 | Emergency (ER) | payer MEDICARE, OTHER, SELFPAY ==
[2024-04-25 13:21] VITALS: BP 188/117
--- NOTE | 2024-04-25 13:42 | ED.GENMED ---
History of Present Illness
General
Chief Complaint: Blood Pressure Problem
Time Seen by Provider: 04/25/24 13:26
Travel History
Have you had any contact with someone who has COVID-19?: No
Do you have any symptoms of coronavirus? Fever > 100 degrees, chills, cough, shortness of breath, sore throat, loss of taste or smell, muscle aches, or headache?: No
History of Present Illness
History of Present Illness:
53-year-old female with history of [id number] diabetes and hypertension presents to the emergency department for evaluation of multiple complaints. She notes having intermittent chest discomfort ongoing for the past 6 to 7 days with no
obvious provoking or palliating factors. Denies any fevers, chills, sweats, shortness of breath. She notes that she is also had ongoing right shoulder and bilateral leg pain after just over 1 week ago, she was evaluated in this emergency
department for the fall. She also notes that her blood sugar of 145 and a she is not on insulin
Past History
Past History
ED Past Medical History: HTN, NIDDM and Other (Crohn's disease, rectovaginal fistula, PANKAJ, obesity)
ED Past Surgical History: Appendectomy, Bowel resection, Cholecystectomy and Other (Colostomy)
Social History
Tobacco: Smoker
Alcohol: Occasional
Drug: None
Personal: Other (Seperated)
Living: with family
Employment: Employed
Family History
Family History: Hypertension; Negative Sudden
Review of Systems
Review of Systems
Allergies reviewed?: Yes
All Other Systems: ROS reviewed and negative except as documented in HPI and ROS
Phy Exam
Physical Exam
Physical Exam:
GEN: Well appearing, NAD, WDWN
HEENT: Oral mucosa moist, no scleral icterus
Cardiac: Regular rate And rhythm, no murmurs
Lung: No respiratory distress, no tachypnea, Lungs clear to auscultation bilaterally
MSK: No gross deformity or injuries
Skin: Good color, no pallor or jaundice, no rashes
Neuro: AO x3, moves all extremities freely
Psych: Calm, cooperative
Course
Orders/Labs/Results
Orders:
Orders
04/25/24 13:16
Electrocardiogram (*1) Urgent
Reason for Study: Chest Pain
EKG- Treatment ONCE
04/25/24 13:40
CR Chest - 2 Views Urgent
Comment:
Reason For Exam: chest pain
04/25/24 14:00
Complete Blood Count/With Diff Urgent
Comprehensive Metabolic Panel Urgent
Troponin I Urgent
04/25/24 14:04
Urinalysis Reflex To Culture Urgent
Date Specimen was Collected: 04/25/24
Time Specimen was Collected: 14:03
04/25/24 14:22
Ketorolac [Toradol] 15 mg IV NOW STA
Abnormal Lab Results
04/25/24 04/25/24 04/25/24
13:46 14:00 14:04
RBC 5.51 H 10^6/uL
(4.20-5.40)
MCV 78.8 L fL
(81.0-99.0)
MPV 10.9 H fL
(7.4-10.4)
Glucose 196 H mg/dl
(70-99)
Urine Glucose 3+ A
(Negative)
POC Glucose 224 H mg/dl
(70-99)
04/25/24 14:00
04/25/24 14:00
Vital Signs
Initial and Last Documented VS:
Initial Vital Signs
Temp Pulse Resp BP Pulse Ox
98.3 F 85 18 188/117 95
04/25/24 13:21 04/25/24 13:21 04/25/24 13:21 04/25/24 13:21 04/25/24 13:21
Last Documented Vital Signs
Temp Pulse Resp BP Pulse Ox
98.3 F 84 18 147/84 96
04/25/24 13:21 04/25/24 15:25 04/25/24 15:25 04/25/24 15:25 04/25/24 15:25
MDM/Problems Addressed
MDM/Problems Addressed:
53-year-old female presents with chest pain and elevated blood glucose readings. Chest pain is likely musculoskeletal given her nonischemic EKG and unremarkable troponins. Pain also improved after Toradol and is reproducible on exam which again is
reassuring for musculoskeletal etiology. As far as her glucose it is mildly elevated, likely a product more of her dietary indiscretions that it is rental sales representative of a true metabolic derangement. Counseled the patient on glycemic index dietary
recommendations
Comment
Comment:
EKG independently interpreted by me shows a normal sinus rhythm at a rate of [address] changes concerning for ischemia, QTc of 435
*Critical Care Note
Total Time (30-74mins, 75-104mins- exclusive of procedures): Not Applicable
ED Attending Note
-
Portions of this chart may have been created with voice recognition software.� Occasional wrong word or��sound alike� substitutions may have occurred due to the inherent limitations of voice recognition software.
Discharge Plan
Departure
Patient Disposition: Home (Routine Discharge)
Date of Disposition: 04/25/24
Time of Disposition: 15:46
Patient with high blood pressure during this ER visit?: Yes
Discharge Problem:
Chest pain, musculoskeletal, Elevated blood pressure reading
Instructions: High Blood Pressure (DC)
Prescriptions:
New
diclofenac sodium 75 mg tablet,delayed release (DR/EC)
75 mg PO BID 7 Days Qty: 14 0RF
No Action
gabapentin 400 MG capsule
400 mg PO QID
amlodipine 5 MG tablet
5 mg PO DAILY
Stelara 90 MG/ML syringe
90 mg SQ Q8W
Rx Instructions:
Last injection 05/26/2023
tizanidine 2 mg tablet
4 mg PO HS
glimepiride 4 mg tablet
2 mg PO DAILY
lisinopril 40 mg Tablet
40 mg PO DAILY
ondansetron HCl 4 mg Tablet
4 mg PO TIDPRN PRN (Reason: nausea)
duloxetine [Cymbalta] 60 mg Capsule,Delayed Release(Dr/Ec)
60 mg PO HS
Rx Instructions:
07/11/23 patient is taking with 30mg
atorvastatin [Lipitor] 10 mg Tablet
10 mg PO HS
cholecalciferol (vitamin D3) [Vitamin D3] 25 mcg (1,000 unit) Capsule
25 mcg PO DAILY
duloxetine 30 mg Capsule,Delayed Release(Dr/Ec)
30 mg PO HS
Rx Instructions:
07/11/23 patient is taking with 60mg
hydrocodone-acetaminophen 5-325 mg Tablet
1 tab PO BID PRN (Reason: severe pain)
buprenorphine [Butrans] 10 mcg/hour patch weekly
10 mcg transdermal SA
Rx Instructions:
patient applied on 07/02/23 and is still wearing it on righ shoulder
dicyclomine 10 mg Capsule
10 mg PO QIDPRN PRN (Reason: abdominal pain) Qty: 60 0RF
metoclopramide HCl [Reglan] 10 mg tablet
10 mg PO Q8HPRN PRN (Reason: nausea and vomiting) Qty: 9 0RF
Referrals:
Imer Harden MD [Family Provider] -
Stand Alone Forms: Return to Work
Interventions
Interventions:
*Risk Screen - Suicide Last Done: 04/25/24 13:21
*General Assessment Last Done: 04/25/24 13:21
*Neglect/Abuse Screening Last Done: 04/25/24 13:21
ED- Fall Risk Assessment Last Done: 04/25/24 13:46
*ED COVID-19 Vaccine History Last Done: 04/25/24 15:52
*Nursing Disposition Last Done: 04/25/24 15:52
ED- Cardiac Assessment Last Done: 04/25/24 14:51
ED- Neurological Assessment Last Done: 04/25/24 14:51
ED- Pulmonary Assessment Last Done: 04/25/24 15:25
Discharge Date and Time
Discharge Date/Time: 04/25/24 15:53
Print Language: OCCITAN
[2024-04-25 13:49] LABS: Glucose - Point of Care 224 mg/dl (70-99)
[2024-04-25 14:10] LABS: Urine Albumin Negative (Neg - Trace); Urine Bilirubin Negative (Negative); Urine Character Clear (Clear); Urine Color Yellow; Urine Glucose 3+ (Negative); Urine Ketone Negative (Negative); Urine Leukocyte Negative (Negative); Urine Nitrite Negative (Negative); Urine Occult Blood Negative (Negative); Urine Specific Gravity 1.015 (<1.030); Urine Urobilinogen Negative (Neg - 1+)
[2024-04-25 14:21] LABS: % Basophils 0.9 % (0-2); % Eosinophils 2.6 % (0-6); % Immature Granulocytes 0.2 % (0-0.5); % Lymphocytes 32.3 % (20.5-51.1); % Monocytes 5.1 % (1.7-9.3); % Neutrophils 58.9 % (42.2-75.2); Absolute Basophils 0.1 10^3/uL (0-0.2); Absolute Eosinophils 0.2 10^3/uL (0-0.7); Absolute Lymphocytes 2.2 10^3/uL (1.2-3.4); Absolute Monocytes 0.3 10^3/uL (0.1-0.6); Absolute Neutrophils 3.9 10^3/uL (1.4-6.5); Hematocrit 43.4 % (37.0-47.0); Hemoglobin 15.3 g/dL (12.0-16.0); Mean Corp Hgb Conc. 35.3 g/dL (33.0-37.0); Mean Corpuscular Hgb 27.8 pg (27.0-31.0); Mean Corpuscular Volume 78.8 fL (81.0-99.0); Mean Platelet Volume 10.9 fL (7.4-10.4); Nucleated Red Blood Cells % 0 %; Platelet Count 159 10^3/uL (130-400); Red Blood Cell Count 5.51 10^6/uL (4.20-5.40); Red Cell Dist. Width 13.7 % (11.5-14.5); White Blood Cell Count 6.7 10^3/uL (4.8-10.8)
[2024-04-25] MEDS: TORADOL 15 MG IV (14:34)
[2024-04-25 14:39] LABS: ALT (SGPT) 29 U/L (0-35); AST (SGOT) 29 U/L (14-36); Albumin 4.3 g/dl (3.5-5.0); Alkaline Phosphatase 126 U/L (38-126); Blood Urea Nitrogen 14 mg/dl (7-17); Calcium 9.5 mg/dl (8.4-10.2); Carbon Dioxide 28 mmol/L (22-30); Chloride 100 mmol/L (98-107); Glucose 196 mg/dl (70-99); Potassium 3.9 mmol/L (3.5-5.1); Sodium 137 mmol/L (135-145); Total Bilirubin 0.8 mg/dl (0.2-1.3); eGFR > 60.00
[2024-04-25 14:42] LABS: Troponin I < 0.012 ng/ml
[2024-04-25 14:51] VITALS: BP 121/73
[2024-04-25 15:25] VITALS: BP 147/84
== END 2024-04-25 15:53 | disposition home or self-care (01) ==
LOC: EMR 13:16
PROVIDERS: Physician Assistant; EMERGENCY PHYSICIAN Emergency Medicine; FAMILY PHYSICIAN Family Medicine
DX: R07.89 Other chest pain (principal); I10 Essential (primary) hypertension; E11.9 Type 2 diabetes mellitus without complications; K50.90 Crohn's disease, unspecified, without complications; G47.33 Obstructive sleep apnea (adult) (pediatric); E66.9 Obesity, unspecified
CPT/HCPCS: 99283; 71046; 80053; 81003; 82962; 84484; 85025; 93005

== ENCOUNTER → 2024-05-07 08:13 | Outpatient (REF) | payer MEDICARE, OTHER, SELFPAY | LOC: DHCBC/DCA 08:13 | PROVIDERS: ATTENDING PHYSICIAN Internal Medicine Cardiovascular Disease; FAMILY PHYSICIAN Family Medicine | DX: R06.02 Shortness of breath (principal) | CPT/HCPCS: 78452; 93017; A9500; J2785 ==

== ENCOUNTER → 2024-05-21 10:21 | Outpatient (REF) | payer MEDICARE, OTHER, SELFPAY | LOC: RCS 10:21 | PROVIDERS: ATTENDING PHYSICIAN Internal Medicine Cardiovascular Disease; FAMILY PHYSICIAN Family Medicine | DX: R06.02 Shortness of breath (principal) | CPT/HCPCS: 93306 ==

== ENCOUNTER 2024-06-15 14:29 | Emergency (ER) | payer MEDICARE, OTHER, SELFPAY ==
[2024-06-15 14:43] VITALS: BP 167/98
[2024-06-15 17:14] VITALS: BP 175/94
--- NOTE | 2024-06-15 17:19 | ED.GENMED ---
History of Present Illness
General
Chief Complaint: Abdominal Pain
Source: patient
Exam Limitations: none
Time Seen by Provider: 06/15/24 16:57
History of Present Illness
History of Present Illness:
Patient complaining of progressive lower abdominal pain. Started 3 to 4 days ago. Associated with nausea and vomiting. Currently only nauseous. Decreased output from her ostomy bag history of same in the past. No blood in her stool. No fever.
Pain is diffuse across the lower abdomen but more right lower quadrant at this time
Past History
Past History
ED Past Medical History: HTN, NIDDM and Other (Crohn's disease, rectovaginal fistula, PANKAJ, obesity)
ED Past Surgical History: Appendectomy, Bowel resection, Cholecystectomy and Other (Colostomy)
Social History
Tobacco: Smoker
Alcohol: Occasional
Drug: None
Personal: Other (Seperated)
Living: with family
Employment: Employed
Family History
Family History: Hypertension; Negative Sudden
Review of Systems
Review of Systems
All Other Systems: Not applicable
Constitutional: Denies fever or chills
Respiratory: Reports no symptoms
Cardiac: Reports no symptoms
Phy Exam
Physical Exam
Physical Exam:
GENERAL: Alert and oriented in no apparent distress
EYE: Orbits normal.
NECK: Supple
CARDIAC: Regular rate and rhythm without any obvious murmurs.
LUNGS: Clear breath sounds,normal
ABDOMEN: Soft, elevated BMI. Bowel sounds present. Ostomy in place. Decreased fluid in the ostomy bag. Diffuse tenderness across the lower quadrants greatest in the right lower quadrant.
NEUROLOGICAL: Alert and oriented , grossly non-focal
SKIN: Warm and dry, no rash or lesion, no discoloration, skin intact.
MUSCULOSKELETAL: No edema,no deformity.Good color
PSYCH: Normal and appropriate interaction.
Course
Orders/Labs/Results
Orders:
Orders
06/15/24 17:12
Complete Blood Count/With Diff Urgent
Comprehensive Metabolic Panel Urgent
Lipase Urgent
06/15/24 17:18
CT Abd/pel W Iv And Oral Contr Urgent
Comment:
Reason For Exam: Lower abdominal pain. Nausea. History of Crohn's
IV Insert/Care/Rem.- Treatment PRN
0.9% Sodium Chloride 500 ml [Nss] 500 ml IV BOLUS
HYDROmorphone [Dilaudid] 0.5 mg IV NOW STA
Iohexol [Omnipaque] See Protocol PO NOW STA
Ondansetron Injectable [Zofran] 4 mg IV NOW STA
06/15/24 18:52
HYDROmorphone [Dilaudid] 0.5 mg .ROUTE .STK-MED ONE
Abnormal Lab Results
06/15/24
17:12
MCV 80.9 L fL
(81.0-99.0)
MPV 10.8 H fL
(7.4-10.4)
Carbon Dioxide 31 H mmol/L
(22-30)
Glucose 154 H mg/dl
(70-99)
06/15/24 17:12
06/15/24 17:12
Vital Signs
Initial and Last Documented VS:
Initial Vital Signs
Temp Pulse Resp BP Pulse Ox
98.7 F 66 16 167/98 98
06/15/24 14:43 06/15/24 14:43 06/15/24 14:43 06/15/24 14:43 06/15/24 14:43
Last Documented Vital Signs
Temp Pulse Resp BP Pulse Ox
98.7 F 69 16 162/81 92
06/15/24 14:43 06/15/24 17:14 06/15/24 18:09 06/15/24 19:00 06/15/24 19:15
MDM/Problems Addressed
Differential Diagnosis Includes:
Patient with a history of appendectomy. Cholecystectomy. Bowel resection. Crohn's disease. Lower abdominal pain. Apparently has some narrowing. CT scan to evaluate for any partial obstruction, bowel leak or anastomosis issue. Could also be a
Crohn's flare. Workup in progress
*Radiology
Radiology exam reviewed: radiology read reviewed (No acute findings on CT)
*Critical Care Note
Total Time (30-74mins, 75-104mins- exclusive of procedures): Not Applicable
Data Reviewed
Review of Other/Old Records Reveals: Labs, Records and Testing
Update Note
Update Note:
Normal labs. Patient is stable and nontoxic. Offered admission and observation versus outpatient management. Patient is comfortable with outpatient observation
ED Attending Note
-
Portions of this chart may have been created with voice recognition software.� Occasional wrong word or��sound alike� substitutions may have occurred due to the inherent limitations of voice recognition software.
Discharge Plan
Departure
Patient Disposition: Home (Routine Discharge)
Date of Disposition: 06/15/24
Time of Disposition: 20:54
Patient with high blood pressure during this ER visit?: Yes
Discharge Problem:
Abdominal pain, History of Crohn's disease
Instructions: Abdominal Pain
Prescriptions:
No Action
gabapentin 400 MG capsule
400 mg PO BID
amlodipine 5 MG tablet
5 mg PO DAILY
Stelara 90 MG/ML syringe
90 mg SQ Q8W
Rx Instructions:
Last injection 05/26/2023
glimepiride 4 mg tablet
1 mg PO DAILY
lisinopril 40 mg Tablet
40 mg PO DAILY
ondansetron HCl 4 mg Tablet
4 mg PO TIDPRN PRN (Reason: nausea)
cholecalciferol (vitamin D3) [Vitamin D3] 25 mcg (1,000 unit) Capsule
25 mcg PO DAILY
duloxetine 30 mg Capsule,Delayed Release(Dr/Ec)
30 mg PO HS
Rx Instructions:
07/11/23 patient is taking with 60mg
hydrocodone-acetaminophen 5-325 mg Tablet
1 tab PO BID PRN (Reason: severe pain)
dicyclomine 10 mg Capsule
10 mg PO QIDPRN PRN (Reason: abdominal pain) Qty: 60 0RF
metoclopramide HCl [Reglan] 10 mg tablet
10 mg PO Q8HPRN PRN (Reason: nausea and vomiting) Qty: 9 0RF
Jardiance 25 mg Tablet
25 mg PO DAILY
Referrals:
Imer Harden MD [Family Provider] - Follow up in 2-3 days
Activity Restrictions/Additional Instructions:
Light diet for the next 1 to 2 days
Return sooner with increased pain vomiting fever bloody stool or any other concerning symptoms
Close follow-up with your primary physician
Interventions
Interventions:
*Risk Screen - Suicide Last Done: 06/15/24 17:08
*General Assessment Last Done: 06/15/24 17:07
*Neglect/Abuse Screening Last Done: 06/15/24 17:08
ED- Fall Risk Assessment Last Done: 06/15/24 18:58
*ED COVID-19 Vaccine History Last Done: 06/15/24 17:07
JJ-Bnzich-Qwejayfcia Assessment Last Done: 06/15/24 19:00
Discharge Date and Time
Print Language: NEPALI
[2024-06-15 17:25] LABS: % Basophils 0.8 % (0-2); % Eosinophils 3.7 % (0-6); % Immature Granulocytes 0.2 % (0-0.5); % Lymphocytes 43.5 % (20.5-51.1); % Monocytes 7.8 % (1.7-9.3); Absolute Eosinophils 0.2 10^3/uL (0-0.7); Absolute Lymphocytes 2.1 10^3/uL (1.2-3.4); Absolute Monocytes 0.4 10^3/uL (0.1-0.6); Absolute Neutrophils 2.1 10^3/uL (1.4-6.5); Hematocrit 40.2 % (37.0-47.0); Hemoglobin 14.2 g/dL (12.0-16.0); Mean Corp Hgb Conc. 35.3 g/dL (33.0-37.0); Mean Corpuscular Hgb 28.6 pg (27.0-31.0); Mean Corpuscular Volume 80.9 fL (81.0-99.0); Mean Platelet Volume 10.8 fL (7.4-10.4); Nucleated Red Blood Cells % 0 %; Platelet Count 138 10^3/uL (130-400); Red Blood Cell Count 4.97 10^6/uL (4.20-5.40); Red Cell Dist. Width 13.4 % (11.5-14.5); White Blood Cell Count 4.9 10^3/uL (4.8-10.8)
[2024-06-15] MEDS: ZOFRAN 4 MG IV (17:25)
[2024-06-15] MEDS: DILAUDID 0.5 MG IV ×2 (17:25→18:54)
[2024-06-15] MEDS: OMNIPAQUE 50 ML PO (17:25)
[2024-06-15] MEDS: NSS 500 IV (17:26)
[2024-06-15 17:34] LABS: ALT (SGPT) 24 U/L (0-35); AST (SGOT) 29 U/L (14-36); Albumin 4.1 g/dl (3.5-5.0); Alkaline Phosphatase 99 U/L (38-126); Blood Urea Nitrogen 13 mg/dl (7-17); Calcium 9.3 mg/dl (8.4-10.2); Carbon Dioxide 31 mmol/L (22-30); Chloride 101 mmol/L (98-107); Glucose 154 mg/dl (70-99); Potassium 3.6 mmol/L (3.5-5.1); Sodium 136 mmol/L (135-145); Total Bilirubin 0.8 mg/dl (0.2-1.3); Total Protein 6.4 g/dl (6.3-8.2); eGFR > 60.00
[2024-06-15 18:04] LABS: Lipase 62 U/L (23-300)
[2024-06-15 18:57] VITALS: BP 160/84
[2024-06-15 19:00] VITALS: BP 162/81
[2024-06-15 20:42] VITALS: BP 158/82
== END 2024-06-15 21:11 | disposition home or self-care (01) ==
LOC: EMR 14:29
PROVIDERS: Emergency Medicine; EMERGENCY PHYSICIAN Emergency Medicine; FAMILY PHYSICIAN Family Medicine
DX: R10.30 Lower abdominal pain, unspecified (principal); K50.90 Crohn's disease, unspecified, without complications; I10 Essential (primary) hypertension; F17.200 Nicotine dependence, unspecified, uncomplicated
CPT/HCPCS: 99285; 96374; 96375; 96361; 74177; 80053; 83690; 85025; Q9967

== ENCOUNTER 2024-07-11 18:11 | Inpatient (IN) | payer MEDICARE, OTHER, SELFPAY ==
[2024-07-11] VITALS (7 sets, daily range): BP systolic 136–159; BP diastolic 72–99; BMI 41.5
[2024-07-11 12:03] LABS: % Basophils 0.7 % (0-2); % Eosinophils 1.3 % (0-6); % Immature Granulocytes 0.3 % (0-0.5); % Lymphocytes 15.5 % (20.5-51.1); % Monocytes 3.8 % (1.7-9.3); % Neutrophils 78.4 % (42.2-75.2); Absolute Basophils 0.1 10^3/uL (0-0.2); Absolute Eosinophils 0.1 10^3/uL (0-0.7); Absolute Lymphocytes 1.7 10^3/uL (1.2-3.4); Absolute Monocytes 0.4 10^3/uL (0.1-0.6); Absolute Neutrophils 8.4 10^3/uL (1.4-6.5); Hematocrit 48.9 % (37.0-47.0); Hemoglobin 17.3 g/dL (12.0-16.0); Mean Corp Hgb Conc. 35.4 g/dL (33.0-37.0); Mean Corpuscular Hgb 28.5 pg (27.0-31.0); Mean Corpuscular Volume 80.4 fL (81.0-99.0); Mean Platelet Volume 10.9 fL (7.4-10.4); Nucleated Red Blood Cells % 0 %; Platelet Count 177 10^3/uL (130-400); Red Blood Cell Count 6.08 10^6/uL (4.20-5.40); Red Cell Dist. Width 13.9 % (11.5-14.5); White Blood Cell Count 10.7 10^3/uL (4.8-10.8)
[2024-07-11 12:08] LABS: ALT (SGPT) 42 U/L (0-35); AST (SGOT) 40 U/L (14-36); Albumin 4.4 g/dl (3.5-5.0); Alkaline Phosphatase 100 U/L (38-126); Blood Urea Nitrogen 17 mg/dl (7-17); Calcium 9.5 mg/dl (8.4-10.2); Carbon Dioxide 22 mmol/L (22-30); Chloride 106 mmol/L (98-107); Estimated Creatinine Clearance 111 ml/min; Glucose 181 mg/dl (70-99); Lactic Acid 1.2 mmol/L (0.7-2.0); Lipase 49 U/L (23-300); Potassium 3.9 mmol/L (3.5-5.1); Sodium 140 mmol/L (135-145); Total Bilirubin 1.4 mg/dl (0.2-1.3); Total Protein 6.8 g/dl (6.3-8.2); eGFR > 60.00
--- NOTE | 2024-07-11 12:15 | ED.GENMED ---
History of Present Illness
General
Chief Complaint: Abdominal Pain
Source: patient
Exam Limitations: none
Time Seen by Provider: 07/11/24 11:52
Nursing documentation reviewed up to this point in time: agreed with
History of Present Illness
History of Present Illness:
Patient with history of Crohn's disease and ileostomy bag, presents to ED secondary to sudden onset of severe abdominal pain with nausea and vomiting, which woke the patient from sleep at 6:30 AM. Abdominal pain described as sharp diffuse, without
any alleviating or exacerbating factors. Denies having had previous similar symptoms. Denies recent change in medications or diet. Denies recent illness. Denies recent travel. Denies sick contact. Reports normal stool content in her ileostomy
bag, which she changed this morning
Past History
Past History
ED Past Medical History: HTN, NIDDM and Other (Crohn's disease, rectovaginal fistula, PANKAJ, obesity)
ED Past Surgical History: Appendectomy, Bowel resection, Cholecystectomy and Other (Colostomy)
Social History
Tobacco: Smoker
Alcohol: Occasional
Drug: None
Personal: Other (Seperated)
Living: with family
Employment: Employed
Family History
Family History: Hypertension; Negative Sudden
Review of Systems
Review of Systems
Allergies reviewed?: Yes
All Other Systems: ROS reviewed and negative except as documented in HPI and ROS
Constitutional: Reports no symptoms; Denies fever
ABD/GI: Reports abdominal pain, nausea and vomiting
Musculoskeletal: Reports no symptoms
Skin: Reports no symptoms
Neurological: Reports no symptoms
Phy Exam
Physical Exam
Physical Exam:
Physical Exam
General: mild painful distress, not acutely ill. afebrile
Head: nc/at. eomi
Neck: supple. no meningeal signs.
Heart: s1/s2 regular rate and rhythm, no murmur. equal radial pulses.
Lungs: no acute respiratory distress. clear bilaterally
Abdomen: normal bowel sounds. diffuse tenderness to palpation without distention. colostomy bag noted over LLQ
Neuro: alert and oriented. no focal neurological deficits
Skin: no rash
Psychiatric: well kept. interactive and cooperative
Extremities: no edema. no calf tenderness.
Course
Orders/Labs/Results
Orders:
Orders
07/11/24 11:42
Test Result ONCE
07/11/24 11:43
Complete Blood Count/With Diff Urgent
Comprehensive Metabolic Panel Urgent
HCG, Serum Qualitative Screen Urgent
Lactic Acid Urgent
Lipase Urgent
07/11/24 12:04
HYDROmorphone [Dilaudid] 0.5 mg IV NOW STA
CR Obstruct Series W/pa Chest Urgent
Comment:
Reason For Exam: abdominal pain
07/11/24 12:05
0.9% Sodium Chloride 500 ml [Nss] 500 ml IV BOLUS
Ondansetron Injectable [Zofran] 4 mg IV NOW STA
07/11/24 13:04
Iohexol [Omnipaque] See Protocol PO NOW STA
07/11/24 13:05
CT Abd/pel W Iv And Oral Contr Urgent
Comment:
Reason For Exam: abd pain w hx crohns dz
07/11/24 13:51
HYDROmorphone [Dilaudid] 0.5 mg IV NOW STA
Ondansetron Injectable [Zofran] 4 mg IV NOW STA
07/11/24 Dinner
NPO
Allow oral meds: Yes
Allow clear liquids: Sips of Clears
07/11/24 16:22
Morphine Sulfate 4 mg IV NOW STA
07/11/24 16:23
Ondansetron Injectable [Zofran] 4 mg IV NOW STA
07/11/24 17:41
Admit/Transfer Patient As Directed
Co-Sign Provider:
Level of Care: Inpatient admission
Assign to:: Medical/Surgical
Physician / Group: mahsa
Diagnosis: chrons flare, partial SBO
Reason for Hospitalization: chrons flare, partial SBO
Expected length of stay greater than two midnights?: Yes
ELOS- Estimated Length of Stay in days: 2
I certify the patient meets the requirements for IP care: Yes
Code Status As Directed
Resuscitation Status: Full Code
PRN Pain Medication Management As Directed
May give lesser potent ordered pain med per pt: Yes
preference::
Protocol:: Medication orders for pain may be administered in a
manner that supports deferring to patient preference
when the pt is:
- Requesting an ordered lesser potent pain medication.
Least to most potent pain medications are defined
as: acetaminophen < NSAID < tramadol < opioids
(morphine, oxycodone, hydromorphone).
- Requesting a lesser dose of the same medication IF
ORDERED.
- Requesting a less intrusive route of administration
if both routes are prescribed by the provider (PO <
IV).
07/11/24 18:57
0.9% Sodium Chloride 1000 ml [Nss] 1,000 ml IV 100 mls/hr
Acetaminophen [Tylenol] 650 mg PO Q4HPRN PRN
Dextrose 50%-Water [Dextrose 50% Syringe] 12.5 grams IV [id number] PRN
Glucagon [GlucaGen] 1 mg IM PRN PRN
Morphine Sulfate 2 mg IV Q4HPRN PRN
Ondansetron Injectable [Zofran] 4 mg IV Q6HPRN PRN
07/11/24 18:57
Activity As Directed
Activity Level: As Tolerated
Bedside Glucose Monitoring As Directed
Frequency: AC&HS
Additional Instructions:: Change to q6h if pt on TPN, tube feeding or not eating
Vital Signs As Directed
Frequency: Per unit guidelines
Cpap [RESP] Routine
Patient to use own unit?: Yes
DX Deep Vein Thrombosis Video Routine
07/11/24 20:00
Gabapentin [Neurontin] 400 mg PO BID
Heparin 5,000 units SC Q12
07/11/24 22:00
Famotidine [Pepcid] 40 mg PO HS
Meloxicam [Mobic] 7.5 mg PO HS
07/12/24 06:00
Complete Blood Count/With Diff IN AM
Comprehensive Metabolic Panel IN AM
Glycohemoglobin (HgbA1c) IN AM
07/12/24 07:30
Insulin Aspart Corrective Low [Novolog Flexpen-Low Resistance] See Protocol SC AC
07/12/24 08:00
Amlodipine [Norvasc] 5 mg PO DAILY
Cholecalciferol (Vitamin D3) [VITAMIN D3 (cholecalciferol)] 25 mcg PO DAILY
Cyanocobalamin [Vitamin B-12] 1,000 mcg PO DAILY
Empagliflozin [Jardiance] 25 mg PO DAILY
Lisinopril [Zestril] 40 mg PO DAILY
Nicotine [Nicoderm Transdermal] 7 mg TRANSDERM DAILY
Pantoprazole [Protonix] 40 mg PO DAILY
Abnormal Lab Results
07/11/24
11:43
RBC 6.08 H 10^6/uL
(4.20-5.40)
Hgb 17.3 H g/dL
(12.0-16.0)
Hct 48.9 H %
(37.0-47.0)
MCV 80.4 L fL
(81.0-99.0)
MPV 10.9 H fL
(7.4-10.4)
Absolute Neuts (auto) 8.4 H 10^3/uL
(1.4-6.5)
Neutrophils % 78.4 H %
(42.2-75.2)
Lymphocytes % 15.5 L %
(20.5-51.1)
Glucose 181 H mg/dl
(70-99)
Total Bilirubin 1.4 H mg/dl
(0.2-1.3)
AST 40 H U/L
(14-36)
ALT 42 H U/L
(0-35)
07/11/24 11:43
07/11/24 11:43
Vital Signs
Initial and Last Documented VS:
Initial Vital Signs
Temp Pulse Resp Pulse Ox
97.8 F 80 20 99
07/11/24 11:36 07/11/24 11:36 07/11/24 11:36 07/11/24 11:36
Last Documented Vital Signs
Temp Pulse Resp BP Pulse Ox
98.3 F 70 20 136/72 95
07/11/24 20:39 07/11/24 20:39 07/11/24 11:36 07/11/24 20:39 07/11/24 20:39
MDM/Problems Addressed
MDM/Problems Addressed:
History, exam, and x-ray suggestive of recurrent small bowel obstruction. Awaiting CT abdomen/pelvis. Patient will be admitted for further evaluation and treatment. NG tube to be considered, if patient requires further pain medication.
*Critical Care Note
Total Time (30-74mins, 75-104mins- exclusive of procedures): Not Applicable
ED Attending Note
-
Portions of this chart may have been created with voice recognition software.� Occasional wrong word or��sound alike� substitutions may have occurred due to the inherent limitations of voice recognition software.
Discharge Plan
Departure
Patient Disposition: Admit
Date of Disposition: 07/11/24
Time of Disposition: 14:40
Presentation/result/management discussed w/ accepting MD/DO: Hospitalist
Discharge Problem:
SBO (small bowel obstruction)
Interventions
Interventions:
*Risk Screen - Suicide Last Done: 07/11/24 11:36
*General Assessment Last Done: 07/11/24 11:36
*Neglect/Abuse Screening Last Done: 07/11/24 11:36
ED- Fall Risk Assessment Last Done: 07/11/24 11:40
*ED COVID-19 Vaccine History Last Done: 07/11/24 19:40
OW-Mbnghf-Jfozqflrdd Assessment Last Done: 07/11/24 11:41
[2024-07-11 12:17] LABS: HCG, Serum Qualitative Screen Negative
[2024-07-11] MEDS: ZOFRAN 4 MG IV ×4 (12:28→20:33)
[2024-07-11] MEDS: DILAUDID 0.5 MG IV ×2 (12:28→13:55)
[2024-07-11] MEDS: NSS 500 IV (12:31)
[2024-07-11] MEDS: OMNIPAQUE 50 ML PO (13:29)
[2024-07-11] MEDS: MORPHINE SULFATE 4 MG IV (16:46)
--- NOTE | 2024-07-11 16:48 | CON.GS ---
Consultation
-
Requesting Provider: Sagar
Performing Provider: Ellen
Reason for Consultation: Abd pain
Medical History
-
Chief Complaint: Abd pain
History of Present Illness:
53F with acute onset abd pain that began this am at 6#0 and woke the pt from sleep. Pain is sharp and diffuse, localized to her midline abdomen. She denies radiation, denies exacerbating/relieving factors. She denies f/c/n/v. Her colostomy is
functioning normally and there is stool in the bag.
Past Medical History
Past Medical History: Other (HTN, NIDDM and Other (Crohn's disease, rectovaginal fistula, PANKAJ, obesity))
Past Surgical History: Other (Appendectomy, Bowel resection, Cholecystectomy and Other (Colostomy), anal fistulotomy, parastomal hernia repair (RAL))
Social History
Tobacco: Smoker
Alcohol: Occasional
Drug: None
Personal: Other ()
Living: With Family
Employment: Employed
Family History
Family History: Reviewed & Noncontributory
Allergies / Home Medications
Allergy/AdvReac Type Severity Reaction Status Date / Time
hydromorphone HCl Allergy NAUSEA/Ok Verified 07/11/24 11:36
[From Dilaudid] if given
with Zofran
infliximab [From Remicade] Allergy Shortness Verified 07/11/24 11:36
of
Breath/CHEST
PAIN
latex Allergy Swelling Verified 07/11/24 11:36
morphine [Morphine] Allergy NAUSEA/Ok Verified 07/11/24 11:36
if given
with Zofran
�Medication �Instructions �Recorded �Confirmed �Type
gabapentin 400 mg capsule 400 mg PO BID Pain 06/03/21 07/11/24 History
amlodipine 5 mg tablet 5 mg PO DAILY Blood pressure 11/10/21 07/11/24 History
ustekinumab 90 mg/mL subcutaneous 90 mg SQ Q8W Gastrointestinal issue 11/10/21 07/11/24 History
syringe (Stelara)
lisinopril 40 mg tablet 40 mg PO DAILY Blood pressure 08/25/22 07/11/24 History
ondansetron HCl 4 mg tablet 4 mg PO DAILYPRN PRN nausea 10/28/22 07/11/24 History
cholecalciferol (vitamin D3) 25 25 mcg PO DAILY Supplement 07/11/23 07/11/24 History
mcg (1,000 unit) capsule (Vitamin
D3)
empagliflozin 25 mg tablet 25 mg PO DAILY 06/15/24 07/11/24 History
(Jardiance)
cyanocobalamin (vitamin B-12) 1,000 mcg PO DAILY 07/11/24 07/11/24 History
1,000 mcg tablet
famotidine 40 mg tablet 40 mg PO HS 07/11/24 07/11/24 History
glimepiride 1 mg tablet 1 mg PO DAILY 07/11/24 07/11/24 History
meloxicam 7.5 mg tablet 7.5 mg PO HS 07/11/24 07/11/24 History
omeprazole 40 mg capsule,delayed 40 mg PO DAILY 07/11/24 07/11/24 History
release
oxycodone-acetaminophen 7.5 mg-325 1 tab PO Q6HPRN PRN severe pain 07/11/24 07/11/24 History
mg tablet
Review of Systems
-
A 10 point review of systems was completed, and was negative except as per HPI.
Physical Exam
Vital Signs
Temp Pulse Resp BP Pulse Ox
97.8 F 80 20 146/95 99
07/11/24 11:36 07/11/24 11:36 07/11/24 11:36 07/11/24 11:42 07/11/24 11:36
07/10/24 07/11/24 07/12/24
06:59 06:59 06:59
Actual Weight 109.6 kg
Body Mass Index (BMI) 41.5
Lab Results
07/11/24 11:43
07/11/24 11:43
WBC 10.7 10^3/uL (4.8-10.8) 07/11/24 11:43
Hgb 17.3 g/dL (12.0-16.0) H 07/11/24 11:43
Hct 48.9 % (37.0-47.0) H 07/11/24 11:43
Plt Count 177 10^3/uL (130-400) 07/11/24 11:43
Abs Immat Gran (auto) 0.0 10^3/uL (0-0.05) 07/11/24 11:43
Neutrophils % 78.4 % (42.2-75.2) H 07/11/24 11:43
Physical Exam
General: Well Developed, Well Nourished and No Apparent Distress
GI: Soft, Tender (moderate ttp to midline) and Obese
Skin: Warm and Dry
Neuro: AO x 3
Psych: Calm
Data Reviewed
-
Radiology: Image Personally Visualized and interpreted, Discussed with Physician, Discussed with Nurse and Discussed with Patient
CT Scan: Image Personally Visualized and interpreted, Discussed with Physician, Discussed with Nurse and Discussed with Patient
Labs: Labs Reviewed by me and Discussed with Patient
Assessment / Plan
-
53F with acute onset abd pain and known hx of Crohn's
No n/v, stoma is functioning well
No leukocytosis
Obs series with some air filled sb loops
CT A/P with consistent caliber of small bowel up to ileocolic anastomosis without transition point and without signs of bowel threat or compromise, stomach not distended
Plan:
GI consult to r/o Crohn's flare
NPO/IVF
Defer NGT for now as no signs of obstruction clinically nor radiographically
PRN pain meds
DVT ppx
Will follow
--- NOTE | 2024-07-11 17:44 | HPS.HSE ---
Family Physician
-
Family Physician: Imer Harden
Chief Complaint
-
abdominal pain
History of Present Illness
53-year-old female past medical history of fistulizing Crohn's disease with small and large bowel involvement status post ileocolectomy in 2006, diverting colostomy 2019, parastomal hernia closure in 2020, type 2 diabetes, morbid obesity,
obstructive sleep apnea on CPAP, hypertension, chronic pain, GERD, fatty liver, hyperlipidemia, presenting with sudden onset of severe abdominal pain with nausea and single episode of vomiting starting this morning. Abdominal pain described as
sharp and diffuse starting in the epigastric region with radiation to the bilateral lower quadrants without alleviating or exacerbating factors. She reports normal stool content in her ileostomy bag although it has been more solid today. Denies
any diarrhea or blood in the stool or mucus. She had chills today.
Her venue attendant is Dr. Ardon and she is supposed to have a virtual colonoscopy in the near future.
She smokes half a pack of cigarettes per day. She denies alcohol or marijuana or any other drugs.
Medical History
Past Medical History
Past Medical History: Reports Other (fistulizing Crohn's disease with small and large bowel involvement status post ileocolectomy in 2006, diverting colostomy 2019, parastomal hernia closure in 2020, type 2 diabetes, morbid obesity, obstructive
sleep apnea on CPAP, hypertension, chronic pain, GERD, fatty liver, hyperlipidemia)
Past Surgical History: Reports Other (Appendectomy, Bowel resection, Cholecystectomy and Other (Colostomy))
Social History
Tobacco: Smoker
Alcohol: None
Drug: None
Family History
Family History: Not pertinent
Allergies / Home Medications
Allergies reflects when Allergies were last updated in [facility].
Home Medications with original date entered in [facility]
Allergy/Medication List:
Allergies
Allergy/AdvReac Type Severity Reaction Status Date / Time
hydromorphone HCl Allergy NAUSEA/Ok Verified 07/11/24 11:36
[From Dilaudid] if given
with Zofran
infliximab [From Remicade] Allergy Shortness Verified 07/11/24 11:36
of
Breath/CHEST
PAIN
latex Allergy Swelling Verified 07/11/24 11:36
morphine [Morphine] Allergy NAUSEA/Ok Verified 07/11/24 11:36
if given
with Zofran
Home Medications
gabapentin 400 mg capsule 400 mg PO BID Pain 06/03/21
amlodipine 5 mg tablet 5 mg PO DAILY Blood pressure 11/10/21
ustekinumab 90 mg/mL subcutaneous syringe (Stelara) 90 mg SQ Q8W Gastrointestinal issue 11/10/21
lisinopril 40 mg tablet 40 mg PO DAILY Blood pressure 08/25/22
ondansetron HCl 4 mg tablet 4 mg PO DAILYPRN PRN nausea 10/28/22
cholecalciferol (vitamin D3) 25 mcg (1,000 unit) capsule (Vitamin D3) 25 mcg PO DAILY Supplement 07/11/23
empagliflozin 25 mg tablet (Jardiance) 25 mg PO DAILY 06/15/24
cyanocobalamin (vitamin B-12) 1,000 mcg tablet 1,000 mcg PO DAILY 07/11/24
famotidine 40 mg tablet 40 mg PO HS 07/11/24
glimepiride 1 mg tablet 1 mg PO DAILY 07/11/24
meloxicam 7.5 mg tablet 7.5 mg PO HS 07/11/24
omeprazole 40 mg capsule,delayed release 40 mg PO DAILY 07/11/24
oxycodone-acetaminophen 7.5 mg-325 mg tablet 1 tab PO Q6HPRN PRN severe pain 07/11/24
Review of Systems
-
History Source: Patient
A 12 point ROS was completed and negative except as noted: Yes
Constitutional: Reports No Symptoms
EENT: Reports No Symptoms
Respiratory: Reports No Symptoms
Cardiac: Reports No Symptoms
Abdomen/GI: Reports See HPI
: Reports No Symptoms
Musculoskeletal: Reports No Symptoms
Skin: Reports No Symptoms
Neurological: Reports No Symptoms
Endocrine: Reports No Symptoms
Hematologic/Lymphatic: Reports No Symptoms
Psych: Reports No Symptoms
Physical Exam
Vital Signs
Vital Signs
Temp Pulse Resp BP Pulse Ox
97.8 F 73 20 159/83 97
07/11/24 11:36 07/11/24 16:56 07/11/24 11:36 07/11/24 16:56 07/11/24 16:56
Physical Exam
General: Well Developed, Well Nourished and No Apparent Distress
HEENT: NormoCephalic, Moist mucous membranes and Atraumatic
Respiratory: Clear
Cardiac: S1/S2 and Regular Rhythm; No Murmur or Rub
GI: Soft, Non Distended, Normal Bowel Sounds and Tender; No Organomegaly
Rectal: Deferred by Provider
Musculoskeletal: No Clubbing, No Cyanosis and No Edema
Skin: No Rash
Neuro: Nonfocal/grossly intact
Laboratory Results
-
07/11/24 11:43
07/11/24 11:43
Laboratory Results
Lactic Acid 1.2 mmol/L (0.7-2.0) 07/11/24 11:43
Total Bilirubin 1.4 mg/dl (0.2-1.3) H 07/11/24 11:43
AST 40 U/L (14-36) H 07/11/24 11:43
ALT 42 U/L (0-35) H 07/11/24 11:43
Alkaline Phosphatase 100 U/L (38-126) 07/11/24 11:43
Lipase 49 U/L (23-300) 07/11/24 11:43
Data Reviewed
-
Lab Data: Labs Reviewed by me
Old Records: Reviewed
Impression/Plan
-
IMPRESSION:
PLAN:
# Possible Crohn's flare with partial small bowel obstruction
# History of fistulizing Crohn's disease with small/large bowel movement status post ileocolectomy in 2006, diverting colostomy 2019, parastomal hernia closure in 2020
-CT abdomen pelvis shows numerous dilated loops of mid/distal small bowel with surrounding edema, extending to the ileocolonic anastomosis with possible stricture
-N.p.o.
-IV fluids
-Zofran, morphine as needed
-General Surgery following
-On Stelara
-GI consulted
Type 2 diabetes
-Continue Jardiance
-Hold glimepiride
-Insulin sliding scale
Obstructive sleep apnea
-CPAP
Essential hypertension
-Continue amlodipine
-Continue lisinopril
Morbid obesity
Chronic pain
-Continue gabapentin, meloxicam
-IV Dilaudid in place of Percocet
GERD
-Continue Pepcid, omeprazole
Hepatic steatosis
Hyperlipidemia
Active smoker
-Nicotine patch
Full code
DVT prophylaxis�heparin
N.p.o.
[2024-07-11] MEDS: HEPARIN SC (20:27)
[2024-07-11] MEDS: NSS 1000 IV (20:32)
[2024-07-11] MEDS: MORPHINE SULFATE 2 MG IV (20:33)
[2024-07-11] MEDS: PEPCID 40 MG PO (20:34)
[2024-07-11] MEDS: NEURONTIN 400 MG PO (20:34)
[2024-07-11] MEDS: MOBIC 7.5 MG PO (21:39)
[2024-07-11] MEDS: TYLENOL 650 MG PO (21:39)
[2024-07-12 00:04] VITALS: PULSE 64
[2024-07-12] MEDS: MORPHINE SULFATE 2 MG IV ×5 (05:11→23:03)
[2024-07-12] MEDS: ZOFRAN 4 MG IV ×2 (05:11→18:03)
[2024-07-12] MEDS: NSS 1000 IV ×2 (06:18→14:05)
[2024-07-12 06:39] LABS: % Basophils 0.6 % (0-2); % Eosinophils 2.4 % (0-6); % Immature Granulocytes 0.3 % (0-0.5); % Lymphocytes 31.7 % (20.5-51.1); % Monocytes 6.2 % (1.7-9.3); % Neutrophils 58.8 % (42.2-75.2); Absolute Eosinophils 0.2 10^3/uL (0-0.7); Absolute Monocytes 0.4 10^3/uL (0.1-0.6); Absolute Neutrophils 3.7 10^3/uL (1.4-6.5); Hematocrit 42.7 % (37.0-47.0); Hemoglobin 14.5 g/dL (12.0-16.0); Mean Corpuscular Hgb 28.5 pg (27.0-31.0); Mean Corpuscular Volume 83.9 fL (81.0-99.0); Mean Platelet Volume 10.9 fL (7.4-10.4); Nucleated Red Blood Cells % 0 %; Platelet Count 119 10^3/uL (130-400); Red Blood Cell Count 5.09 10^6/uL (4.20-5.40); Red Cell Dist. Width 13.9 % (11.5-14.5); White Blood Cell Count 6.3 10^3/uL (4.8-10.8)
--- NOTE | 2024-07-12 06:41 | CON.GI ---
Addendum entered and electronically signed by Elvira De La Rosa Do, MD 07/12/24 16:01:
I saw and examined the patient.
The ADULT SECONDARY EDUCATION INSTRUCTOR's note was reviewed and I agree with the note.
Comment: Yamile is a 53yo W well known to myself for h/o Crohn's disease of small and large bowel diagnosed 2003 s/p ileocolectomy then diverting colostomy for rectovaginal fistula on Stelara since 07/2021 who was admitted for acute abd pain with
nausea and decrease ostomy output. Denies any clear triggers. She has been compliant with stelara and pending MR elastography and virtual colonoscopy outpatient basis next week. Vitals reviewed. abdomen ostomy with yellow liquid stool, TTP around
stoma. Labs reviewed Hbg 12, CRP elevated. Stool studies neg Cdiff rest pending. CTAP show Postoperative changes of partial colectomy with left lower quadrant colostomy. There are numerous dilated loops of mid/distal small bowel with surrounding
edema. This extends to the ileocolonic anastomosis within the right lower quadrant. Findings may represent active inflammation with developing/partial obstruction , possible developing stricture at the anastomosis with associated slow transit.
Impression
- Acute abd pain and abnormal CT showing dilated small bowel
- Fistulizing crohn's of small and large bowel with diverting ostomy
- Rectovaginal fistua
- Obesity
- Chronic low back pain
- GERD
- DM
- Depression/anxiety
- Fatty liver
- Thrombocytopenia
Recommendations
- Cdiff neg rest of stool studies pending
- Solumedrol 40mg Q6H
- Monitor stool output
- Appreciate surgical recs
- CLD today
- IVF
- Fecal calprotectin pending
- C/w stelara output basis. Pending virtual CT colonoscopy and MR elastography
Will follow with you.
Addendum entered and electronically signed by SHIRA Bowles 07/12/24 10:08:
repeat CBC with mild thrombocytopenia on admission
Original Note:
Consultation
-
Date/Time Consultation Requested: 07/11/24 6802
Date/Time Consultation Performed: 07/12/24 0115
Requesting Provider: Sherman Moon MD
Performing Provider: SHIRA Pimentel, Elvira Ardon MD
Reason for Consultation: small bowel obstruction
Medical History
Chief Complaint / HPI
Chief Complaint: abdominal pain
History of Present Illness:
The pt is a 53yo yo female with history for longstanding fistulizing Crohn's disease of the small and large bowel diagnosed in 2002 status post ileocolectomy with history of rectovaginal fistula and diverting colostomy on Stelara since July
2020(with brief delay of therapy with trip several weeks ago)with previously intolerant to Remicade and Entyvio in the past per review of records, fistulectomy/excision of skin tag [address] Ho, DM2, HTN, obesity, anxiety/depression, GERD,
appe, parastomal hernia with repair for incarcerated recurrent parastomal hernia with mesh in 10/2022, fatty liver disease with recurrent ER evaluations since March with chronic lower abdominal pain. She now presents 07/11 with sudden onset of upper
abdominal pain with nausea and small amount of vomiting. On admission obstruction series with concern for small bowel obstruction with follow up CT with partial colectomy and dilated mid/distal SB with edema extending to ileocolonic anastomosis in
RLQ with active inflammation with developing/partial obstruction and possible developing stricture at anastomosis. Last colonoscopy 2021 was abort in transverse due to difficulty Perianal exam includes a scar from prior sphincteroplasty with no
apparent fistula. Perianal skin tags. Copious amounts of formed stool in the rectum and rectosigmoid digitally removed. Congested mucosa, biopsies consistent with quiescent colitis, negative for dysplasia. Cuff at 30 cm. Procedure through her
ostomy included congested mucosa but healthy-appearing. Biopsies also consistent with quiescent colitis, negative for dysplasia. 5 mm proximal transverse sessile serrated polyp removed with cold snare. Despite being 60 cm into the ostomy, the light
was transilluminating back in the ostomy site revealing it was likely in a hernia. Labs stable except platelets 119, bili 1.4, AST 40, ALT 42 alk phos 100. fecal yung April, February.
In reviewing with patient she admits to chronic 7-8 lower abdominal pain with chronic narcotic use. She began prior to admission awakening her from sleep with upper pain 08/23 with waves of pain. Pain was so severe required ambulance
assistance. Since arrival minimal improvement with Dilaudid but some improvement to 07/24. She admits to some thickeness of stool in ostomy but no period of decreased output and now liquid output today similar to chronic drainage. She otherwise
denies dysphagia, GERD, blood or black in stools. No NSAID use. She is also due for virtual colonoscopy scheduled 07/23 and MR elastography due in July ? [facility].
.
Past Medical History
Past Medical History: GERD, HTN, Hypercholesterolemia, NIDDM, Psychiatric (Anxiety/depression) and Other (Obesity, fatty liver disease, chronic pain syndrome, fistulizing Crohn's disease of the large and small bowel on Stelara, PANKAJ)
Past Surgical History: Appendectomy, Bowel Resection (Ileocolectomy, rectovaginal fistula with diverting colostomy), Cholecystectomy, Gynecological (Total hysterectomy-bso), Orthopedic (Cervical fusion) and Other (Parastomal hernia repair, umbilical
hernia repair, fistulectomy/excision of skin tag Dr. Ho 2022 )
Social History
Tobacco: Smoker
Alcohol: None
Drug: None
Living: With Family
Employment: Not Employed
Family History
Family History: Other (father ? crohns with hx colon CA , son age 20 with crohns )
Allergies / Home Medications
Allergy/AdvReac Type Severity Reaction Status Date / Time
hydromorphone HCl Allergy NAUSEA/Ok Verified 07/11/24 11:36
[From Dilaudid] if given
with Zofran
infliximab [From Remicade] Allergy Shortness Verified 07/11/24 11:36
of
Breath/CHEST
PAIN
latex Allergy Swelling Verified 07/11/24 11:36
morphine [Morphine] Allergy NAUSEA/Ok Verified 07/11/24 11:36
if given
with Zofran
�Medication �Instructions �Recorded
gabapentin 400 mg capsule 400 mg PO BID Pain 06/03/21
amlodipine 5 mg tablet 5 mg PO DAILY Blood pressure 11/10/21
ustekinumab 90 mg/mL subcutaneous 90 mg SQ Q8W Gastrointestinal issue 11/10/21
syringe (Stelara)
lisinopril 40 mg tablet 40 mg PO DAILY Blood pressure 08/25/22
ondansetron HCl 4 mg tablet 4 mg PO DAILYPRN PRN nausea 10/28/22
cholecalciferol (vitamin D3) 25 25 mcg PO DAILY Supplement 07/11/23
mcg (1,000 unit) capsule (Vitamin
D3)
empagliflozin 25 mg tablet 25 mg PO DAILY 06/15/24
(Jardiance)
cyanocobalamin (vitamin B-12) 1,000 mcg PO DAILY 07/11/24
1,000 mcg tablet
famotidine 40 mg tablet 40 mg PO HS 07/11/24
glimepiride 1 mg tablet 1 mg PO DAILY 07/11/24
meloxicam 7.5 mg tablet 7.5 mg PO HS 07/11/24
omeprazole 40 mg capsule,delayed 40 mg PO DAILY 07/11/24
release
oxycodone-acetaminophen 7.5 mg-325 1 tab PO Q6HPRN PRN severe pain 07/11/24
mg tablet
Review of Systems
-
History Source: Patient
Constitutional: Reports Weight Gain
EENT: Reports No Symptoms
Respiratory: Reports No Symptoms
Abdomen/GI: Reports Abdominal Pain, Nausea, Vomiting (minimal ) and Diarrhea (some change in stool thickeness now improved no blood)
: Reports No Symptoms
Musculoskeletal: Reports Other (chronic low back pain )
Skin: Reports No Symptoms
Neurological: Reports Weakness
Endocrine: Reports No Symptoms
Hematologic/Lymphatic: Reports No Symptoms
Vital Signs
Temp Pulse Resp BP Pulse Ox
97.5 F 64 20 156/85 96
07/11/24 22:52 07/11/24 22:52 07/11/24 11:36 07/11/24 22:52 07/11/24 22:52
Physical Exam
Exam
General: Well Developed, Well Nourished and Other (some distress with continued pain)
HEENT: Normocephalic and Anicteric
Respiratory: Clear
Cardiac: Regular Rhythm
GI: Soft, Non Distended and Tender (diffuse worse upper abdomen )
Rectal: Other (brown liquid output )
Musculoskeletal: No Clubbing and No Cyanosis
Skin: Warm and Dry
Neuro: Awake, Alert and AO x 3
Psych: Calm
Results
WBC 6.3 10^3/uL (4.8-10.8) 07/12/24 05:07
Hgb 14.5 g/dL (12.0-16.0) 07/12/24 05:07
Hct 42.7 % (37.0-47.0) 07/12/24 05:07
MCV 83.9 fL (81.0-99.0) 07/12/24 05:07
Plt Count 119 10^3/uL (130-400) L D 07/12/24 05:07
Absolute Neuts (auto) 3.7 10^3/uL (1.4-6.5) 07/12/24 05:07
Sodium 140 mmol/L (135-145) 07/11/24 11:43
Potassium 3.9 mmol/L (3.5-5.1) 07/11/24 11:43
Chloride 106 mmol/L (98-107) 07/11/24 11:43
Carbon Dioxide 22 mmol/L (22-30) 07/11/24 11:43
BUN 17 mg/dl (7-17) 07/11/24 11:43
Creatinine 0.7 mg/dL (0.6-1.0) 07/11/24 11:43
Calcium 9.5 mg/dl (8.4-10.2) 07/11/24 11:43
Total Bilirubin 1.4 mg/dl (0.2-1.3) H 07/11/24 11:43
AST 40 U/L (14-36) H 07/11/24 11:43
ALT 42 U/L (0-35) H 07/11/24 11:43
Alkaline Phosphatase 100 U/L (38-126) 07/11/24 11:43
Lipase 49 U/L (23-300) 07/11/24 11:43
Diagnostic Image Results:
07/11/24 CT A/P IV and oral
Postoperative changes of partial colectomy with left lower quadrant colostomy. There are numerous dilated loops of mid/distal small bowel with surrounding edema. This extends to the ileocolonic anastomosis within the right lower quadrant. Findings
may represent active inflammation with developing/partial obstruction , possible developing stricture at the anastomosis with associated slow transit.
07/11/24 obstruction series Small bowel obstruction.
06/15/24 CT a/p IV and oral contrast
IMPRESSION: No acute disease of the abdomen and pelvis.
Postsurgical change. Stable
Mild fecal material in the colon. Progressed
moderate hepatomegaly versus Rc's lobe, a normal variant. Stable
04/12/24 CT Abd/pel W Iv And Oral Contr
Hepatosplenomegaly again noted.
Apparent prior subtotal colectomy with left lower quadrant colostomy, no intestinal obstruction or free air.
Mild cardiomegaly.
Prior cholecystectomy.
Bibasilar subsegmental atelectasis. Pneumonia unlikely.
Prior GI Procedures:
EGD: 11/2022,Elvira Do : 2cm hiatal hernia, gastritis, neg for Hpylori or celiac.�������
Colonoscopy: 02/2022, Dr Santa: aborted in the transverse colon due to difficulty. Perianal exam includes a scar from prior sphincteroplasty with no apparent fistula. Perianal skin tags. Copious amounts of formed stool in the rectum and rectosigmoid
digitally removed. Congested mucosa, biopsies consistent with quiescent colitis, negative for dysplasia. Cuff at 30 cm. Procedure through her ostomy included congested mucosa but healthy-appearing. Biopsies also consistent with quiescent colitis,
negative for dysplasia. 5 mm proximal transverse sessile serrated polyp removed with cold snare. Despite being 60 cm into the ostomy, the light was transilluminating back in the ostomy site revealing it was likely in a hernia.
Assessment / Plan
-
The pt is a 53yo yo female with history for longstanding fistulizing Crohn's disease of the small and large bowel diagnosed in 2002 status post ileocolectomy with history of rectovaginal fistula and diverting colostomy on Stelara since July
2020 with previously intolerant to Remicade and Entyvio in the past per review of records, fistulectomy/excision of skin tap [address] Ho, DM2, HTN, obesity, anxiety/depression, GERD, appe, parastomal hernia with repair for incarcerated
recurrent parastomal hernia with mesh in 10/2022, fatty liver disease with recurrent ER evaluations since March with abdominal pain. she now presents 07/11 with sudden onset of abdominal pain with nausea and vomiting. On admission obstruction series
with concern for small bowel obstruction with follow up CT with partial colectomy and dilated mid/distal SB with edema extending to ileocolonic anastomosis in RLQ with active inflammation with developing/partial obstruction and possible developing
stricture at anastomosis. fecal yung 39 April, 33 in February.
Problem list:
-abdominal pain, nausea, vomiting CT concerning to developing obstruction/stricture at anastomosis on imaging
-hx fistulizing Crohn's disease on Stelara s/p ileocolectomy 2006
-Parastomal hernia with repair
-History of rectovaginal fistula with diverting colostomy
-prior fistulectomy
Other pertinent medical hx:
-Type 2 diabetes
-fatty liver
-Hypertension
-Hyperlipidemia
-Chronic pain syndrome on chronic opioids/meloxicam use
-Anxiety/depression
-GERD- Omeprazole prior to admission
-Morbid obesity
-appe
PLAN:
Etiology of abdominal pain with concern for obstruction vs stricturing disease vs crohns flare vs other
imaging reviewed with concern for obstructive process but ostomy output and minimal emesis so less likely
appreciate surgical input
monitor clinically
pain management per hospitalist
currently to trial sips of clears advance as tolerated
hold steroid for now
cont on OP Stelara
add ESR. CRP, fecal yung which has been stable last few months
pt has not scheduled follow up at [facility] with Dr. Cantrell as lost contact information
due OP virtual colon 07/23 and MR elastography in Sept for fatty liver
-
-
Thank you for consultation and allowing me to participate in the patient's care. Please call the vector control specialist GI physician during the after hours with any questions or concerns.
[2024-07-12 07:00] VITALS: BP 127/86
[2024-07-12 07:08] LABS: ALT (SGPT) 32 U/L (0-35); AST (SGOT) 28 U/L (14-36); Albumin 3.6 g/dl (3.5-5.0); Alkaline Phosphatase 71 U/L (38-126); Blood Urea Nitrogen 17 mg/dl (7-17); Calcium 8.6 mg/dl (8.4-10.2); Carbon Dioxide 28 mmol/L (22-30); Chloride 106 mmol/L (98-107); Estimated Creatinine Clearance 111 ml/min; Glucose 111 mg/dl (70-99); Potassium 3.7 mmol/L (3.5-5.1); Sodium 142 mmol/L (135-145); Total Bilirubin 1.5 mg/dl (0.2-1.3); Total Protein 5.9 g/dl (6.3-8.2); eGFR > 60.00
[2024-07-12 07:18] LABS: Erythrocyte Sed Rate 6 mm/hour (0-20)
[2024-07-12 08:54] LABS: Glycohemoglobin (HgbA1c) 7.1 % (4.0-5.6)
[2024-07-12] MEDS: VITAMIN B-12 1000 MCG PO (10:08)
[2024-07-12] MEDS: NORVASC 5 MG PO (10:08)
[2024-07-12] MEDS: PROTONIX 40 MG PO (10:08)
[2024-07-12] MEDS: ZESTRIL 40 MG PO (10:08)
[2024-07-12] MEDS: VITAMIN D3 (cholecalciferol) 25 MCG PO (10:09)
[2024-07-12] MEDS: JARDIANCE 25 MG PO (10:09)
[2024-07-12] MEDS: NEURONTIN 400 MG PO ×2 (10:09→19:38)
[2024-07-12] MEDS: NICODERM TRANSDERMAL TRANSDERM (10:11)
[2024-07-12] MEDS: HEPARIN SC ×2 (10:11→19:38)
[2024-07-12 10:22] LABS: Glucose - Point of Care 136 mg/dl (70-99)
[2024-07-12] MEDS: NOVOLOG FLEXPEN-LOW RESISTANCE SC ×3 (10:25→16:46)
[2024-07-12 13:23] LABS: Glucose - Point of Care 89 mg/dl (70-99)
--- NOTE | 2024-07-12 14:06 | W.PN.HOSP.TC ---
Today's Communication/Plan
-
see plan above
Assessment / Plan
Assessment / Plan
# Possible Crohn's flare with partial small bowel obstruction
# History of fistulizing Crohn's disease with small/large bowel movement status post ileocolectomy in 2006, diverting colostomy 2019, parastomal hernia closure in 2020
-CT abdomen pelvis shows numerous dilated loops of mid/distal small bowel with surrounding edema, extending to the ileocolonic anastomosis with possible stricture
-cw N.p.o.
-cw IV fluids
-Zofran, morphine as needed
-General Surgery following
-On Stelara
-GI input pending
Type 2 diabetes
-Hold Jardiance
-Hold glimepiride
-cw Insulin sliding scale
Obstructive sleep apnea
-CPAP
Essential hypertension
-Continue amlodipine
-Continue lisinopril
Morbid obesity
Chronic pain
-Continue gabapentin, meloxicam
-IV Dilaudid in place of Percocet
GERD
-Continue Pepcid, omeprazole
Hepatic steatosis
Hyperlipidemia
Active smoker
-Nicotine patch
Full code
DVT prophylaxis�heparin
N.p.o.
Anticipated Discharge: > 48 hours
Subjective/Interval History
-
Date of Service: July 12, 2024
Patient still with persistent abdominal pain which fluctuates. When it is intense it is sharp pain but otherwise more like an ache. Reeds nauseous today. No vomiting.
She is having some liquid stools in her colostomy bag.
Objective Data
-
Labs:
Laboratory Results
07/12/24
05:07
WBC 6.3
Hgb 14.5
Hct 42.7
Plt Count 119 L D
Sodium 142
Potassium 3.7
Chloride 106
Carbon Dioxide 28
BUN 17
Creatinine 0.7
Glucose 111 H
Calcium 8.6
Total Bilirubin 1.5 H
AST 28
ALT 32
Alkaline Phosphatase 71
Vital Signs:
Vital Signs
Temp Pulse Resp BP Pulse Ox
97.1 F 57 14 127/86 94
07/12/24 07:00 07/12/24 07:00 07/12/24 07:00 07/12/24 07:00 07/12/24 07:00
Review of Systems
-
Constitutional: Denies Fever
Respiratory: Denies Trouble Breathing
Cardiac: Denies Chest Pain
Neuro: Denies Dizzy
Physical Exam
-
General: No Apparent Distress
HEENT: Moist Mucous Membranes
Respiratory: Clear to Auscultation
Cardiac: Regular Rhythm and S1/S2
GI: Soft, Nondistended, Normal Bowel Sounds and Tender (discomfort but no rebound)
Neuro: AO x 3
Psych: Calm
Data Reviewed
-
Labs: Labs Reviewed by me
--- NOTE | 2024-07-12 14:30 | CM ---
Addendum entered by Jennifer Rodgers 07/12/24 15:00:
Patient also has a CPAP machine at home.
Original Note:
CM reviewed patient's chart. Spoke with patient at bedside. CM introduced self and role.
PCP: Dr. Imer Corey
Pharmacy: [facility] in [place]
Living situation: Patient lives with her daughter, Ebony, in a trailer. She has 3 steps to enter. She has a neighbor across the street who offers support.
Daughter's number is: [phone].
Finances: Patient expressed having a food insecurity. She is diabetic and also has Crohn's disease. She said that items in the diabetic diabetic excacerbate her Crohn's disease. She knows where the food makrs are, but the food given out at food
marks can also exacerbate her Crohn's disease as well. She said they are not good for her as a diabetic either. She receives about $1000 is disability and $250/month in food stamps.
Intervention: ED CM was unable to supply patient with resources due to her being transferred upstairs before CM had time to follow up with her. She will need some resources on Crohn's and diabetic-friendly food marks, etc.
She expressed that she is able to afford her housing, clothing, medications, utilities and transportation. She is disabled.
DME/Ambulation: Patient ambulates independently. She owns and utilizes a cane.
Transportation: Patient will most likely need transportation set up once she is discharged. Her daughter would be able to pick her up, if it is after 3:30PM. Daughter works until 3:30pm. Patient does not drive. She either utilizes free rides through
her insurance, for appointments or uses [facility] transportation.
Agreeable to home health care?: Yes, if needed.
ANTICIPATED DISCHARGE DISPOSITION:
Return to home with daughter, when medically cleared.
CM will continue to follow case and available for further assistance.
[2024-07-12 15:00] VITALS: BP 130/85; BMI 41.1
[2024-07-12 16:27] LABS: Glucose - Point of Care 120 mg/dl (70-99)
[2024-07-12] MEDS: SOLU-MEDROL PF 40 MG IV ×2 (16:47→22:47)
[2024-07-12 21:10] LABS: Glucose - Point of Care 208 mg/dl (70-99)
[2024-07-12] MEDS: PEPCID 40 MG PO (22:46)
[2024-07-12] MEDS: MOBIC 7.5 MG PO (22:47)
[2024-07-12 23:27] VITALS: PULSE 65
[2024-07-12 23:51] VITALS: BP 143/87
[2024-07-13] MEDS: ZOFRAN 4 MG IV ×4 (00:05→20:50)
[2024-07-13] MEDS: NSS 1000 IV ×3 (00:56→21:54)
[2024-07-13] MEDS: MORPHINE SULFATE 2 MG IV ×7 (00:57→20:50)
[2024-07-13] MEDS: SOLU-MEDROL PF 40 MG IV ×4 (04:12→21:59)
[2024-07-13 07:35] VITALS: BP 139/86
[2024-07-13 07:38] LABS: Glucose - Point of Care 168 mg/dl (70-99)
[2024-07-13] MEDS: VITAMIN B-12 1000 MCG PO (07:57)
[2024-07-13] MEDS: NORVASC 5 MG PO (07:57)
[2024-07-13] MEDS: NEURONTIN 400 MG PO ×2 (07:57→20:51)
[2024-07-13] MEDS: JARDIANCE 25 MG PO (07:57)
[2024-07-13] MEDS: VITAMIN D3 (cholecalciferol) 25 MCG PO (07:57)
[2024-07-13] MEDS: PROTONIX 40 MG PO (07:57)
[2024-07-13] MEDS: ZESTRIL 40 MG PO (07:57)
[2024-07-13] MEDS: HEPARIN 5000 UNITS SC (07:58)
[2024-07-13] MEDS: NICODERM TRANSDERMAL TRANSDERM (08:10)
[2024-07-13] MEDS: NOVOLOG FLEXPEN-LOW RESISTANCE 1 UNITS SC (08:45)
[2024-07-13 09:54] LABS: INR 1.17; PT 14.7 Sec (11.4-14.6)
[2024-07-13 10:00] LABS: Hemoglobin 14.3 g/dL (12.0-16.0); Mean Corp Hgb Conc. 35.8 g/dL (33.0-37.0); Mean Corpuscular Hgb 28.8 pg (27.0-31.0); Mean Corpuscular Volume 80.6 fL (81.0-99.0); Mean Platelet Volume 10.6 fL (7.4-10.4); Platelet Count 113 10^3/uL (130-400); Red Blood Cell Count 4.96 10^6/uL (4.20-5.40); Red Cell Dist. Width 13.4 % (11.5-14.5); White Blood Cell Count 4.8 10^3/uL (4.8-10.8)
[2024-07-13 10:08] LABS: Blood Urea Nitrogen 14 mg/dl (7-17); Calcium 9.4 mg/dl (8.4-10.2); Carbon Dioxide 21 mmol/L (22-30); Chloride 106 mmol/L (98-107); Estimated Creatinine Clearance 109 ml/min; Glucose 266 mg/dl (70-99); Sodium 140 mmol/L (135-145); eGFR > 60.00
[2024-07-13 11:40] LABS: Glucose - Point of Care 208 mg/dl (70-99)
[2024-07-13] MEDS: NOVOLOG FLEXPEN-LOW RESISTANCE 2 UNITS SC (12:52)
--- NOTE | 2024-07-13 15:03 | W.PN.GI.CBS2 ---
Today's Communication / Plan
-
continue with solumedrol, advance to FLD
Assessment / Plan
-
The pt is a 53yo yo female with history for longstanding fistulizing Crohn's disease of the small and large bowel diagnosed in 2002 status post ileocolectomy with history of rectovaginal fistula and diverting colostomy on Stelara since July
2020 with previously intolerant to Remicade and Entyvio in the past per review of records, fistulectomy/excision of skin tap [address] Ho, DM2, HTN, obesity, anxiety/depression, GERD, appe, parastomal hernia with repair for incarcerated
recurrent parastomal hernia with mesh in 10/2022, fatty liver disease with recurrent ER evaluations since March with abdominal pain. she now presents 07/11 with sudden onset of abdominal pain with nausea and vomiting. On admission obstruction series
with concern for small bowel obstruction with follow up CT with partial colectomy and dilated mid/distal SB with edema extending to ileocolonic anastomosis in RLQ with active inflammation with developing/partial obstruction and possible developing
stricture at anastomosis. fecal yung 39 April, 33 in February.
Started on solumedrol yesterday, CLD. Feels bloated today, some diffuse pain, feels somewhat improved. Tolerated CLD. Continue with solumedrol for now, advance to FLD.
Total Time Spent with Patient (in minutes): 35
Subjective
Subjective
Date of Service: July 13, 2024
Feels bloated, tolerated CLD.
Objective
Data Reviewed
Laboratory Data:
Laboratory Results
07/13/24 09:27
07/13/24 09:27
Laboratory Results
PT 14.7 Sec (11.4-14.6) H 07/13/24 09:27
INR 1.17 07/13/24 09:27
Total Bilirubin 1.5 mg/dl (0.2-1.3) H 07/12/24 05:07
AST 28 U/L (14-36) 07/12/24 05:07
ALT 32 U/L (0-35) 07/12/24 05:07
Alkaline Phosphatase 71 U/L (38-126) 07/12/24 05:07
Lipase 49 U/L (23-300) 07/11/24 11:43
Vital Signs and I&O:
Vital Signs
Temp Pulse Resp BP Pulse Ox
97.8 F 63 18 139/86 94
07/13/24 07:35 07/13/24 07:35 07/13/24 07:35 07/13/24 07:35 07/13/24 07:35
I&O
07/12/24 07/13/24 07/14/24
06:59 06:59 06:59
Intake Total 460 / 460
Balance 460 / 460
--- NOTE | 2024-07-13 15:10 | CM ---
Patient seen bedside, tearful at times regarding her current situation. Gastroenterology in room to meet with patient, CM will continue to follow for all discharge planning needs.
Plan; home with daughter, food resources placed in patients chart ([employer]).
[2024-07-13 15:36] VITALS: BP 178/101
--- NOTE | 2024-07-13 16:03 | W.PN.HOSP.TC ---
Today's Communication/Plan
-
Add AC NovoLog
Depending on sugars tomorrow morning I will also add NPH during the daytime for elevated sugars
Restart oral hypoglycemic agents
Assessment / Plan
Assessment / Plan
54-year-old female With history of Crohn's disease. She has small bowel and large bowel disease diagnosed in 2002. She had a ileocolectomy. History of rectovaginal fistula and diverting colostomy. She has been on Stelara since July 2021.
She had a fistulectomy/excision of skin [address] Ho. She has intolerance with Entyvio and Remicade. Patient comes with abdominal pain obstruction series showed obstruction small bowel obstruction
CVS: S1-S2 normal
Chest: CTA B/L
Abdomen: Soft, High pitched BS, Mild tenderness, RLQ and also Mid abdomen. Bowel sounds present
Extremities: No edema, normal pulses
SAFETY EQUIPMENT TESTER: Non focal exam
# Possible Crohn's flare with partial small bowel obstruction
Diagnosed in 2002 history of fistulizing Crohn's disease with small/large bowel movement status post ileocolectomy in 2006, History of rectovaginal fistula and diverting colostomy 2019, parastomal hernia closure in 2020
Intolerance to Entyvio and Remicade-currently on Stelara
CT abdomen pelvis shows numerous dilated loops of mid/distal small bowel with surrounding edema, extending to the ileocolonic anastomosis with possible stricture
Continue with n.p.o. and IV fluids
IV steroids started
Zofran and morphine for symptomatic treatment
GI and general surgery following
# Type 2 diabetes-hemoglobin A1c 7.1
-On Jardiance
-Restart glimepiride
-cw Insulin sliding scale
-Add NPH in am based on sugars because of patient being on steroids sugars are running high.
-Add AC NovoLog
#Obstructive sleep apnea
-CPAP
#Essential hypertension
-Continue amlodipine
-Continue lisinopril
#Obesity with a BMI 41
#Chronic pain
History of C4-C5, C5-C6 fusion in June 2022
-Continue gabapentin, meloxicam
- PRN Oxycodone and Morphine for severe pain
#GERD
-Continue Pepcid, omeprazole
#Hepatic steatosis
#Hyperlipidemia
# Anxiety and depression
# Migraines
#Active smoker
-Nicotine patch
#Full code
#DVT prophylaxis� SC Lovenox and SCDS
D/W RN
Anticipated Discharge: 24 - 48 hours
Subjective/Interval History
-
Date of Service: July 13, 2024
Objective Data
-
Labs:
Laboratory Results
07/13/24
09:27
WBC 4.8
Hgb 14.3
Hct 40.0
Plt Count 113 L
PT 14.7 H
INR 1.17
Sodium 140
Potassium 4.0
Chloride 106
Carbon Dioxide 21 L
BUN 14
Creatinine 0.7
Glucose 266 H
Calcium 9.4
Vital Signs:
Vital Signs
Temp Pulse Resp BP Pulse Ox
98.3 F 70 19 178/101 96
07/13/24 15:36 07/13/24 15:36 07/13/24 15:36 07/13/24 15:36 07/13/24 15:36
I&O
07/12/24 07/13/24 07/14/24
06:59 06:59 06:59
Intake Total 460 / 460
Balance 460 / 460
[2024-07-13 16:42] LABS: Glucose - Point of Care 324 mg/dl (70-99)
[2024-07-13] MEDS: NOVOLOG FLEXPEN 10 UNITS SC (17:27)
[2024-07-13] MEDS: NOVOLOG FLEXPEN-LOW RESISTANCE SC (17:27)
[2024-07-13] MEDS: LOVENOX 40 MG SC (17:28)
[2024-07-13] MEDS: AMARYL 1 MG PO (17:31)
[2024-07-13 21:25] LABS: Glucose - Point of Care 210 mg/dl (70-99)
[2024-07-13] MEDS: MOBIC 7.5 MG PO (21:59)
[2024-07-13] MEDS: PEPCID 40 MG PO (21:59)
[2024-07-13 23:05] VITALS: BP 120/70
[2024-07-13 23:21] VITALS: PULSE 70
[2024-07-14] MEDS: MORPHINE SULFATE 2 MG IV ×6 (01:14→20:35)
[2024-07-14] MEDS: SOLU-MEDROL PF 40 MG IV ×2 (03:05→09:07)
[2024-07-14] MEDS: ZOFRAN 4 MG IV ×3 (05:27→20:35)
[2024-07-14 07:25] LABS: Glucose - Point of Care 201 mg/dl (70-99)
[2024-07-14 07:47] VITALS: BP 139/83
[2024-07-14] MEDS: NSS 1000 IV (08:19)
[2024-07-14] MEDS: NOVOLOG FLEXPEN 5 UNITS SC ×3 (08:21→17:27)
[2024-07-14] MEDS: NOVOLOG FLEXPEN-LOW RESISTANCE 2 UNITS SC (08:22)
[2024-07-14] MEDS: VITAMIN B-12 1000 MCG PO (08:22)
[2024-07-14] MEDS: JARDIANCE 25 MG PO (08:23)
[2024-07-14] MEDS: NORVASC 5 MG PO (08:23)
[2024-07-14] MEDS: PROTONIX 40 MG PO (08:23)
[2024-07-14] MEDS: ZESTRIL 40 MG PO (08:23)
[2024-07-14] MEDS: NEURONTIN 400 MG PO ×2 (08:23→20:24)
[2024-07-14] MEDS: VITAMIN D3 (cholecalciferol) 25 MCG PO (08:23)
[2024-07-14] MEDS: AMARYL 1 MG PO (08:23)
[2024-07-14] MEDS: NICODERM TRANSDERMAL TRANSDERM (08:26)
[2024-07-14] MEDS: TYLENOL 650 MG PO (09:00)
[2024-07-14 11:43] LABS: Glucose - Point of Care 150 mg/dl (70-99)
--- NOTE | 2024-07-14 12:17 | W.PN.GI.CBS2 ---
Today's Communication / Plan
-
Convert methylprednisolone to oral prednisone, advance diet.
Assessment / Plan
-
The pt is a 53yo yo female with history for longstanding fistulizing Crohn's disease of the small and large bowel diagnosed in 2002 status post ileocolectomy with history of rectovaginal fistula and diverting colostomy on Stelara since July
2020 with previously intolerant to Remicade and Entyvio in the past per review of records, fistulectomy/excision of skin tap [address] Ho, DM2, HTN, obesity, anxiety/depression, GERD, appe, parastomal hernia with repair for incarcerated
recurrent parastomal hernia with mesh in 10/2022, fatty liver disease with recurrent ER evaluations since March with abdominal pain. she now presents 07/11 with sudden onset of abdominal pain with nausea and vomiting. On admission obstruction series
with concern for small bowel obstruction with follow up CT with partial colectomy and dilated mid/distal SB with edema extending to ileocolonic anastomosis in RLQ with active inflammation with developing/partial obstruction and possible developing
stricture at anastomosis. fecal yung 39 April, 33 in February.
Tolerated FLD. Has some positional pain in abdomen but overall feels ok. Willing to try solid food. Will convert IV steroids to prednisone 40 mg and trial of solid dinner tonight.
Subjective
Subjective
Date of Service: July 14, 2024
Tolerated FLD. Feeling better.
Objective
Data Reviewed
Laboratory Data:
Laboratory Results
07/13/24 09:27
07/13/24 09:27
Laboratory Results
PT 14.7 Sec (11.4-14.6) H 07/13/24 09:27
INR 1.17 07/13/24 09:27
Total Bilirubin 1.5 mg/dl (0.2-1.3) H 07/12/24 05:07
AST 28 U/L (14-36) 07/12/24 05:07
ALT 32 U/L (0-35) 07/12/24 05:07
Alkaline Phosphatase 71 U/L (38-126) 07/12/24 05:07
Lipase 49 U/L (23-300) 07/11/24 11:43
Vital Signs and I&O:
Vital Signs
Temp Pulse Resp BP Pulse Ox
97.7 F 50 18 139/83 93
07/14/24 07:47 07/14/24 07:47 07/14/24 07:47 07/14/24 07:47 07/14/24 07:47
I&O
07/13/24 07/14/24 07/15/24
06:59 06:59 06:59
Intake Total 460 / 460 1000 / 1000
Balance 460 / 460 1000 / 1000
[2024-07-14] MEDS: NOVOLOG FLEXPEN-LOW RESISTANCE 1 UNITS SC (12:22)
--- NOTE | 2024-07-14 14:08 | W.PN.HOSP.TC ---
Addendum entered and electronically signed by Haseeb Goldsmith MD 07/14/24 14:15:
Thrombocytopenia-repeat platelets
Original Note:
Today's Communication/Plan
-
Check labs as ordered
X-ray of the abdomen
On clears. Watch how she does
Watch blood sugars
Assessment / Plan
Assessment / Plan
54-year-old female With history of Crohn's disease. She has small bowel and large bowel disease diagnosed in 2002. She had a ileocolectomy. History of rectovaginal fistula and diverting colostomy. She has been on Stelara since July 2021.
She had a fistulectomy/excision of skin [address] Ho. She has intolerance with Entyvio and Remicade. Patient comes with abdominal pain obstruction series showed obstruction small bowel obstruction
CVS: S1-S2 normal
Chest: CTA B/L
Abdomen: Soft, High pitched BS, Mild tenderness, Mid abdomen. Bowel sounds present-stoma with no leak noted
Extremities: No edema, normal pulses
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
# Possible Crohn's flare with partial small bowel obstruction
Diagnosed in 2002 history of fistulizing Crohn's disease with small/large bowel movement status post ileocolectomy in 2006, History of rectovaginal fistula and diverting colostomy 2019, parastomal hernia closure in 2020
Intolerance to Entyvio and Remicade-currently on Stelara
CT abdomen pelvis shows numerous dilated loops of mid/distal small bowel with surrounding edema, extending to the ileocolonic anastomosis with possible stricture
Continue clears
IV steroids started, changed to PO today
Zofran and morphine for symptomatic treatment
GI and general surgery following
# Epigastric pain-check LFTs, lipase, BMP, x-ray of the abdomen
Patient also requested surgery to reevaluate I have requested
# Type 2 diabetes-hemoglobin A1c 7.1
-On Jardiance and glimepiride
-cw Insulin sliding scale
-Continue 5 units AC NovoLog
#Obstructive sleep apnea
-CPAP
#Essential hypertension
-Continue amlodipine
-Continue lisinopril
#Obesity with a BMI 41
#Chronic pain
History of C4-C5, C5-C6 fusion in June 2022
-Continue gabapentin, meloxicam
- PRN Oxycodone and Morphine for severe pain
#GERD
-Continue Pepcid, omeprazole
#Hepatic steatosis
#Hyperlipidemia
# Anxiety and depression
# Migraines
#Active smoker
-Nicotine patch patient also requested p.o. for nicotine which I ordered
-Cessation counseling
#Full code
#DVT prophylaxis� SC Lovenox and SCDS
D/W RN
Anticipated Discharge: Within 24 hours
Subjective/Interval History
-
Date of Service: July 14, 2024
Objective Data
-
Vital Signs:
Vital Signs
Temp Pulse Resp BP Pulse Ox
97.7 F 50 18 139/83 93
07/14/24 07:47 07/14/24 07:47 07/14/24 07:47 07/14/24 07:47 07/14/24 07:47
I&O
07/13/24 07/14/24 07/15/24
06:59 06:59 06:59
Intake Total 460 / 460 1000 / 1000
Balance 460 / 460 1000 / 1000
--- NOTE | 2024-07-14 15:23 | W.PN.UPDATE ---
Update Note
Progress Note Update
Pt requested surgical consultation. She is asking about the possibility of surgery in the future and about the nature of her current problem. I advised that I think the current episode is driven by a crohn's flare, based on imaging findings and
improvement with IV steroids. Imaging suggests possible developing stricture vs flare at the ileocolonic anastomosis. We discussed the nature of strictures, and the possibility this is an acute phenomenon that will carroll with steroid treatment and
not become a fibrotic stricture. Alternatively it may become a fibrotic stricture. The next few weeks will shed light on this question. If she continues to have pain, I recommended outpt surgical consult with her surgeon Dr Ho. We also discussed
the challenge of managing fibrotic strictures in Crohn's disease, as there is a limit to how much bowel can be resected before she develops short gut syndrome, so typically surgery is avoided. We did not get into details regarding resection vs
stricturoplasty, though the latter would potentially be an option if surgery is eventually needed, depending on the exact location of the problem. She verbalized understanding. All ?s answered.
[2024-07-14 15:39] LABS: Platelet Count 125 10^3/uL (130-400)
[2024-07-14 15:41] LABS: ALT (SGPT) 22 U/L (0-35); AST (SGOT) 19 U/L (14-36); Albumin 4.1 g/dl (3.5-5.0); Alkaline Phosphatase 67 U/L (38-126); Blood Urea Nitrogen 17 mg/dl (7-17); Calcium 9.5 mg/dl (8.4-10.2); Carbon Dioxide 25 mmol/L (22-30); Chloride 106 mmol/L (98-107); Direct Bilirubin 0.4 mg/dl (0.0-0.4); Estimated Creatinine Clearance 96 ml/min; Glucose 228 mg/dl (70-99); Lipase 36 U/L (23-300); Magnesium 1.9 mg/dl (1.6-2.3); Potassium 4.1 mmol/L (3.5-5.1); Sodium 140 mmol/L (135-145); Total Bilirubin 0.8 mg/dl (0.2-1.3); Total Protein 6.3 g/dl (6.3-8.2); eGFR > 60.00
[2024-07-14 15:53] VITALS: BP 168/89
[2024-07-14 16:11] LABS: TSH Reflex To Free T4 0.02 uIU/ml (0.47-4.68)
[2024-07-14 16:40] LABS: Free T4 1.21 ng/dl (0.78-2.19)
[2024-07-14 17:07] LABS: Glucose - Point of Care 297 mg/dl (70-99)
[2024-07-14] MEDS: NOVOLOG FLEXPEN-LOW RESISTANCE 3 UNITS SC (17:27)
[2024-07-14] MEDS: LOVENOX 40 MG SC (17:28)
[2024-07-14] MEDS: MOBIC 7.5 MG PO (20:24)
[2024-07-14] MEDS: PEPCID 40 MG PO (20:25)
[2024-07-14] MEDS: NICORETTE 4 MG PO (20:25)
[2024-07-14] MEDS: FLUSH (NSS) 1 FLUSH IV (20:37)
[2024-07-14 21:41] LABS: Glucose - Point of Care 223 mg/dl (70-99)
[2024-07-14 21:52] VITALS: PULSE 56
[2024-07-14 23:40] VITALS: BP 118/57
[2024-07-15] MEDS: MORPHINE SULFATE 2 MG IV ×5 (01:21→23:42)
[2024-07-15] MEDS: FLUSH (NSS) 1 FLUSH IV (01:23)
[2024-07-15] MEDS: ZOFRAN 4 MG IV ×4 (02:56→23:41)
[2024-07-15] MEDS: MORPHINE SULFATE 0.5 MG IV (03:43)
[2024-07-15 07:10] VITALS: BP 154/90
[2024-07-15 07:31] LABS: Glucose - Point of Care 94 mg/dl (70-99)
[2024-07-15] MEDS: NOVOLOG FLEXPEN 5 UNITS SC (08:00)
[2024-07-15] MEDS: NOVOLOG FLEXPEN-LOW RESISTANCE SC ×2 (08:00→12:17)
[2024-07-15] MEDS: PROTONIX 40 MG PO (08:01)
[2024-07-15] MEDS: AMARYL 1 MG PO ×2 (08:01→12:52)
[2024-07-15] MEDS: DELTASONE 40 MG PO (08:01)
[2024-07-15] MEDS: ZESTRIL 40 MG PO (08:01)
[2024-07-15] MEDS: NICODERM TRANSDERMAL 7 MG TRANSDERM (08:01)
[2024-07-15] MEDS: VITAMIN D3 (cholecalciferol) 25 MCG PO (08:02)
[2024-07-15] MEDS: VITAMIN B-12 1000 MCG PO (08:02)
[2024-07-15] MEDS: JARDIANCE 25 MG PO (08:02)
[2024-07-15] MEDS: NORVASC 5 MG PO (08:02)
[2024-07-15] MEDS: NEURONTIN 400 MG PO ×2 (09:02→19:52)
[2024-07-15] MEDS: ROXICODONE 5 MG PO (10:44)
[2024-07-15 11:05] LABS: Glucose - Point of Care 141 mg/dl (70-99)
--- NOTE | 2024-07-15 12:05 | W.PN.HOSP.TC ---
Addendum entered and electronically signed by Haseeb Goldsmith MD 07/15/24 12:11:
I will increase the dose of glimepiride while on steroids and back off slowly on the NovoLog as she cannot go home on NovoLog. Will plan on keeping the patient on a high dose of glimepiride until she finishes the steroid taper.
Original Note:
Today's Communication/Plan
-
Patient is complaining a lot of pain
Tums added per her request
Continue PPI
Hold meloxicam tonight
I advised her to reduce intake of narcotics
Assessment / Plan
Assessment / Plan
54-year-old female With history of Crohn's disease. She has small bowel and large bowel disease diagnosed in 2002. She had a ileocolectomy. History of rectovaginal fistula and diverting colostomy. She has been on Stelara since July 2021.
She had a fistulectomy/excision of skin [address] Ho. She has intolerance with Entyvio and Remicade. Patient comes with abdominal pain obstruction series showed obstruction small bowel obstruction
CVS: S1-S2 normal
Chest: CTA B/L
Abdomen: Soft, Says she has epigastric discomfort, BS present, Stoma with some stool
Extremities: No edema, normal pulses
# Possible Crohn's flare with partial small bowel obstruction
Diagnosed in 2002 history of fistulizing Crohn's disease with small/large bowel movement status post ileocolectomy in 2006, History of rectovaginal fistula and diverting colostomy 2019, parastomal hernia closure in 2020
Intolerance to Entyvio and Remicade-currently on Stelara
CT abdomen pelvis shows numerous dilated loops of mid/distal small bowel with surrounding edema, extending to the ileocolonic anastomosis with possible stricture
Started on solid diet
Steroids started, changed to PO
Patient still states that she has a lot of epigastric pain. LFTs and lipase are normal. X-ray of the abdomen with no obstruction.
Surgery evaluated the patient yesterday
I discussed with the patient that narcotics are not good for her especially with history of Crohn's disease and bowel obstruction.
Difficult situation as she has chronic pain and was on gabapentin and also meloxicam.
? Gastritis
Hold Meloxicam
# Type 2 diabetes-hemoglobin A1c 7.1
-On Jardiance and glimepiride
-cw Insulin sliding scale
-Continue 5 units AC NovoLog
-Patient is not happy with diabetic diet
#Obstructive sleep apnea
-CPAP
#Essential hypertension
-Continue amlodipine
-Continue lisinopril
#Obesity with a BMI 41
#Chronic pain
History of C4-C5, C5-C6 fusion in June 2022
-Continue gabapentin, hold meloxicam
-PRN Oxycodone and Morphine for severe pain
#GERD
-Continue Pepcid, omeprazole
#Hepatic steatosis
#Hyperlipidemia
# Anxiety and depression
# Migraines
#Active smoker
-Nicotine patch patient also requested p.o. for nicotine which I ordered
-Cessation counseling
#Full code
#DVT prophylaxis� SC Lovenox and SCDS
D/W RN at bedside
Anticipated Discharge: Within 24 hours
Subjective/Interval History
-
Date of Service: July 15, 2024
Objective Data
-
Vital Signs:
Vital Signs
Temp Pulse Resp BP Pulse Ox
98.2 F 55 18 154/90 96
07/15/24 07:10 07/15/24 07:10 07/15/24 07:10 07/15/24 07:10 07/15/24 07:10
I&O
07/14/24 07/15/24 07/16/24
06:59 06:59 06:59
Intake Total 1000 / 1000 640 / 640
Output Total 175 / 175
Balance 1000 / 1000 465 / 465
[2024-07-15] MEDS: MIRALAX 17 GRAMS PO (12:52)
[2024-07-15] MEDS: TUMS 1 TABLET PO ×2 (13:03→19:51)
--- NOTE | 2024-07-15 14:09 | W.PN.GI.CBS2 ---
Today's Communication / Plan
-
.
Assessment / Plan
-
The pt is a 53yo yo female with history for longstanding fistulizing Crohn's disease of the small and large bowel diagnosed in 2002 status post ileocolectomy with history of rectovaginal fistula and diverting colostomy on Stelara since July
2020 with previously intolerant to Remicade and Entyvio in the past per review of records, fistulectomy/excision of skin tap [address] Ho, DM2, HTN, obesity, anxiety/depression, GERD, appe, parastomal hernia with repair for incarcerated
recurrent parastomal hernia with mesh in 10/2022, fatty liver disease with recurrent ER evaluations since March with abdominal pain. she now presents 07/11 with sudden onset of abdominal pain with nausea and vomiting. On admission obstruction series
with concern for small bowel obstruction with follow up CT with partial colectomy and dilated mid/distal SB with edema extending to ileocolonic anastomosis in RLQ with active inflammation with developing/partial obstruction and possible developing
stricture at anastomosis. fecal yung 39 April, 33 in February.
Didn't tolerate solid diet too well. Having pain. Continue with prednisone 40 mg for now.
Total Time Spent with Patient (in minutes): 35
Subjective
Subjective
Date of Service: July 15, 2024
Did not tolerate solid diet well. Pain continues.
Objective
Data Reviewed
Laboratory Data:
Laboratory Results
07/14/24 15:11
07/14/24 15:10
Laboratory Results
PT 14.7 Sec (11.4-14.6) H 07/13/24 09:27
INR 1.17 07/13/24 09:27
Magnesium 1.9 mg/dl (1.6-2.3) 07/14/24 15:10
Total Bilirubin 0.8 mg/dl (0.2-1.3) 07/14/24 15:10
AST 19 U/L (14-36) 07/14/24 15:10
ALT 22 U/L (0-35) 07/14/24 15:10
Alkaline Phosphatase 67 U/L (38-126) 07/14/24 15:10
Lipase 36 U/L (23-300) 07/14/24 15:10
Vital Signs and I&O:
Vital Signs
Temp Pulse Resp BP Pulse Ox
98.2 F 55 18 154/90 96
07/15/24 07:10 07/15/24 07:10 07/15/24 07:10 07/15/24 07:10 07/15/24 07:10
I&O
07/14/24 07/15/24 07/16/24
06:59 06:59 06:59
Intake Total 1000 / 1000 640 / 640
Output Total 175 / 175
Balance 1000 / 1000 465 / 465
[2024-07-15] MEDS: NOVOLOG FLEXPEN SC (14:37)
[2024-07-15] MEDS: ROBITUSSIN 200 MG PO (15:03)
[2024-07-15 15:37] VITALS: BP 167/97
[2024-07-15] MEDS: LOVENOX 40 MG SC (16:56)
[2024-07-15 17:05] LABS: Glucose - Point of Care 175 mg/dl (70-99)
[2024-07-15] MEDS: NOVOLOG FLEXPEN-LOW RESISTANCE 1 UNITS SC (17:21)
[2024-07-15] MEDS: NOVOLOG FLEXPEN 2 UNITS SC (17:21)
[2024-07-15] MEDS: PEPCID 40 MG PO (19:51)
[2024-07-15 21:26] LABS: Glucose - Point of Care 166 mg/dl (70-99)
[2024-07-15 23:15] VITALS: BP 164/93
[2024-07-16 00:05] VITALS: PULSE 61
[2024-07-16] MEDS: MORPHINE SULFATE 2 MG IV ×2 (03:09→06:30)
[2024-07-16 07:00] VITALS: BP 181/107
[2024-07-16 07:22] LABS: Blood Urea Nitrogen 17 mg/dl (7-17); Calcium 8.9 mg/dl (8.4-10.2); Carbon Dioxide 29 mmol/L (22-30); Chloride 104 mmol/L (98-107); Estimated Creatinine Clearance 96 ml/min; Glucose 79 mg/dl (70-99); Sodium 141 mmol/L (135-145); eGFR > 60.00
[2024-07-16 08:12] LABS: Glucose - Point of Care 85 mg/dl (70-99)
[2024-07-16] MEDS: MIRALAX 17 GRAMS PO (08:16)
[2024-07-16] MEDS: ZESTRIL 40 MG PO (08:16)
[2024-07-16] MEDS: PROTONIX 40 MG PO (08:16)
[2024-07-16] MEDS: DELTASONE 40 MG PO (08:18)
[2024-07-16] MEDS: AMARYL 2 MG PO (08:18)
[2024-07-16] MEDS: VITAMIN B-12 1000 MCG PO (08:19)
[2024-07-16] MEDS: JARDIANCE 25 MG PO (08:19)
[2024-07-16] MEDS: VITAMIN D3 (cholecalciferol) 25 MCG PO (08:19)
[2024-07-16] MEDS: NEURONTIN 400 MG PO (08:19)
[2024-07-16] MEDS: NORVASC 5 MG PO (08:19)
[2024-07-16] MEDS: NOVOLOG FLEXPEN-LOW RESISTANCE SC ×2 (08:20→11:52)
[2024-07-16] MEDS: NOVOLOG FLEXPEN 2 UNITS SC ×2 (08:20→11:52)
[2024-07-16] MEDS: NICODERM TRANSDERMAL 7 MG TRANSDERM (08:20)
[2024-07-16] MEDS: ROXICODONE 5 MG PO (09:32)
[2024-07-16] MEDS: ZOFRAN 4 MG IV (09:33)
[2024-07-16 10:06] VITALS: BP 154/86
[2024-07-16 10:46] LABS: Calprotectin, Fecal 258 ug/g (<=49)
[2024-07-16 11:55] LABS: Glucose - Point of Care 132 mg/dl (70-99)
--- NOTE | 2024-07-16 14:03 | W.PN.HOSP.TC ---
Addendum entered and electronically signed by Clinton Pardo MD 07/16/24 14:18:
Increase glimiperide to 2mg at discharge;she was on 1mg at home not 2mg like i thought.
Original Note:
Today's Communication/Plan
-
dc
Assessment / Plan
Assessment / Plan
54-year-old female With history of Crohn's disease. She has small bowel and large bowel disease diagnosed in 2002. She had a ileocolectomy. History of rectovaginal fistula and diverting colostomy. She has been on Stelara since July 2021.
She had a fistulectomy/excision of skin [address] Ho. She has intolerance with Entyvio and Remicade. Patient comes with abdominal pain obstruction series showed obstruction small bowel obstruction
# Possible Crohn's flare with partial small bowel obstruction
Diagnosed in 2002 history of fistulizing Crohn's disease with small/large bowel movement status post ileocolectomy in 2006, History of rectovaginal fistula and diverting colostomy 2019, parastomal hernia closure in 2020
Intolerance to Entyvio and Remicade-currently on Stelara
CT abdomen pelvis shows numerous dilated loops of mid/distal small bowel with surrounding edema, extending to the ileocolonic anastomosis with possible stricture
Started on solid diet
Steroids started, changed to PO
LFTs and lipase are normal. X-ray of the abdomen with no obstruction.
Improved pain. Currently on oral pain regimen. Also tolerating diet.
# Type 2 diabetes-hemoglobin A1c 7.1
-On Jardiance and glimepiride
-With a good glycemic control at home suspect hyperglycemia secondary to steroids. Advised her to use glimepiride to 3 mg daily. She checks her blood sugar before breakfast at home. She was also told once her steroid starts to get tapered she
could possibly go back to glimepiride 2 mg which is her usual dose.
#Obstructive sleep apnea
-CPAP
#Essential hypertension
-Continue amlodipine
-Continue lisinopril
- Occasional highs possibly sec to pain or steroids. Advised to follow with PCP.
#Obesity with a BMI 41
#Chronic pain
History of C4-C5, C5-C6 fusion in June 2022
-Continue gabapentin, hold meloxicam while on prednisone
-PRN Oxycodone and Morphine for severe pain
#GERD
-Continue Pepcid, omeprazole
#Hepatic steatosis
#Hyperlipidemia
# Anxiety and depression
# Migraines
#Active smoker
-Nicotine patch patient also requested p.o. for nicotine which I ordered
-Cessation counseling
#Full code
#DVT prophylaxis� SC Lovenox and SCDS
Medically stable for dc
Total time of dc 32
Anticipated Discharge: Today
Subjective/Interval History
-
Date of Service: July 16, 2024
Tolerating diet. Improving abdominal pain. Requiring less of pain medication. On oral pain medication only now. She has pain medication at home she takes chronically for back pain.
No fever chills.
Objective Data
-
Labs:
Laboratory Results
07/16/24
06:11
Sodium 141
Potassium 4.0
Chloride 104
Carbon Dioxide 29
BUN 17
Creatinine 0.8
Glucose 79
Calcium 8.9
Vital Signs:
Vital Signs
Temp Pulse Resp BP Pulse Ox
97.9 F 58 18 154/86 98
07/16/24 07:00 07/16/24 10:06 07/16/24 07:00 07/16/24 10:06 07/16/24 10:06
I&O
07/15/24 07/16/24 07/17/24
06:59 06:59 06:59
Intake Total 640 / 640 2169
Output Total 175 / 175
Balance 465 / 465 2169
Review of Systems
-
Constitutional: Denies Fever
Respiratory: Denies Trouble Breathing
Cardiac: Denies Chest Pain
Abdomen/GI: Reports Abdominal Pain (improved); Denies Nausea, Vomiting or Diarrhea
Physical Exam
-
General: No Apparent Distress
HEENT: Moist Mucous Membranes
Respiratory: Non Labored Respirations; Negative Accessory Resp Muscle Use
Cardiac: Regular Rhythm and S1/S2
GI: Soft and Nontender
Neuro: AO x 3
--- NOTE | 2024-07-16 14:13 | W.PN.GI.CBS2 ---
Today's Communication / Plan
-
ok to d/c home, prednisone taper
Assessment / Plan
-
The pt is a 53yo yo female with history for longstanding fistulizing Crohn's disease of the small and large bowel diagnosed in 2002 status post ileocolectomy with history of rectovaginal fistula and diverting colostomy on Stelara since July
2020 with previously intolerant to Remicade and Entyvio in the past per review of records, fistulectomy/excision of skin tap [address] Ho, DM2, HTN, obesity, anxiety/depression, GERD, appe, parastomal hernia with repair for incarcerated
recurrent parastomal hernia with mesh in 10/2022, fatty liver disease with recurrent ER evaluations since March with abdominal pain. she now presents 07/11 with sudden onset of abdominal pain with nausea and vomiting. On admission obstruction series
with concern for small bowel obstruction with follow up CT with partial colectomy and dilated mid/distal SB with edema extending to ileocolonic anastomosis in RLQ with active inflammation with developing/partial obstruction and possible developing
stricture at anastomosis. fecal yung 39 April, 33 in February.
Feeling better today, wishes to go home. Ok to d/c home with GI f/u (dr. mcghee). Will need tapering prednisone regimen; recommend 40 mg prednisone for 1 week, then taper by 10 mg weekly until 10 mg daily, then taper to 5 mg for a week then stop.
Total Time Spent with Patient (in minutes): 35
Subjective
Subjective
Date of Service: July 16, 2024
feeling better today, tolerated diet
Objective
Data Reviewed
Laboratory Data:
Laboratory Results
07/14/24 15:11
07/16/24 06:11
Laboratory Results
PT 14.7 Sec (11.4-14.6) H 07/13/24 09:27
INR 1.17 07/13/24 09:27
Magnesium 1.9 mg/dl (1.6-2.3) 07/14/24 15:10
Total Bilirubin 0.8 mg/dl (0.2-1.3) 07/14/24 15:10
AST 19 U/L (14-36) 07/14/24 15:10
ALT 22 U/L (0-35) 07/14/24 15:10
Alkaline Phosphatase 67 U/L (38-126) 07/14/24 15:10
Lipase 36 U/L (23-300) 07/14/24 15:10
Vital Signs and I&O:
Vital Signs
Temp Pulse Resp BP Pulse Ox
97.9 F 58 18 154/86 98
07/16/24 07:00 07/16/24 10:06 07/16/24 07:00 07/16/24 10:06 07/16/24 10:06
I&O
07/15/24 07/16/24 07/17/24
06:59 06:59 06:59
Intake Total 640 / 640 2169 / 2169
Output Total 175 / 175
Balance 465 / 465 2169 / 217
--- NOTE | 2024-07-16 14:21 | W.DS.TRANS ---
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
-
Discharge Instructions:
Discharge Diagnosis/Procedures Crohn's flare
Diet Low Residue
Activity As tolerated
Driving Restrictions As prior to admission
Bathing Restrictions None
Instructions:
Stand-Alone Forms:
Changes to Home Medications: Yes
Discharge Medications:
DC Medications w/original date entered in [employer]
gabapentin 400 mg capsule 400 mg PO BID Pain 06/03/21
amlodipine 5 mg tablet 5 mg PO DAILY Blood pressure 11/10/21
ustekinumab 90 mg/mL subcutaneous syringe (Stelara) 90 mg SQ Q8W Gastrointestinal issue 11/10/21
lisinopril 40 mg tablet 40 mg PO DAILY Blood pressure 08/25/22
ondansetron HCl 4 mg tablet 4 mg PO DAILYPRN PRN nausea 10/28/22
cholecalciferol (vitamin D3) 25 mcg (1,000 unit) capsule (Vitamin D3) 25 mcg PO DAILY Supplement 07/11/23
empagliflozin 25 mg tablet (Jardiance) 25 mg PO DAILY Diabetes 06/15/24
cyanocobalamin (vitamin B-12) 1,000 mcg tablet 1,000 mcg PO DAILY Supplement 07/11/24
famotidine 40 mg tablet 40 mg PO HS Gastrointestinal Issue 07/11/24
meloxicam 7.5 mg tablet 7.5 mg PO HS Pain 07/11/24
omeprazole 40 mg capsule,delayed release 40 mg PO DAILY Gastrointestinal Issue 07/11/24
oxycodone-acetaminophen 7.5 mg-325 mg tablet 1 tab PO Q6HPRN PRN severe pain 07/11/24
glimepiride 1 mg tablet 2 mg (2 x 1 mg) PO DAILY #1 tab 07/16/24
prednisone 10 mg tablet 10 mg PO DIRECTED #70 tabs 07/16/24
Home Medication Changes
New Medication-prednisone taper
Hold medication-meloxicam while on high-dose of prednisone
Pending Results: No
--- NOTE | 2024-07-16 14:21 | W.VN.F2F ---
Home Health Certification
Patient Information
Family Physician: Imer Harden Admit Date: 07/11/24
Discharge Diagnosis: Dx
Encounter
I certify that I, or a qualified non-physician practitioner working with me, had a [id number] encounter with this patient on the date I indicated below.
The reason for the encounter, also listed below, relates to the primary reason the patient requires home health services.
Date of Encounter: 07/16/24
Primary Reason for Home Care: Active flare of chronic disease management
Home Health Care Needs
Certification:
I certify that, based on my findings, the following home health services are medically necessary. The clinical findings that support the need for Home Health services are listed below.
Homebound Status
Homebound Certification:
This patient is homebound. The individual, because of illness or injury, requires the aid of supportive devices such as crutches, canes, wheelchairs, and walkers; the use of special transportation; or the assistance of another person in order to
leave their place of residence; OR has a condition such that leaving his or her home is medically contraindicated AND there exists a normal inability to leave home AND leaving home would require a considerable and taxing effort.
The clinical findings that support the patient's homebound status are listed below:
Final Certification
I certify that I, as the certifying physician, composed the above information based on my clinical judgment relating to this patient's medical condition, the patient is under my care, and I have initiated the establishment of the plan of care. This
patient will be followed by a physician who will periodically review the plan of care.
[2024-07-16 15:08] VITALS: BP 152/89
== END 2024-07-16 15:20 | disposition home or self-care (01) | DRG 386 ==
LOC: 4 WEST ACU 18:11
PROVIDERS: Hospitalist; Nurse Practitioner Adult Health; Physician Assistant; ADMITTING PHYSICIAN Hospitalist; ATTENDING PHYSICIAN Internal Medicine; CONSULT PHYSICIAN Internal Medicine Gastroenterology; EMERGENCY PHYSICIAN Emergency Medicine; FAMILY PHYSICIAN Family Medicine; OTHER PHYSICIAN Surgery
PROC: 5A09357 Assistance with Respiratory Ventilation, Less than 24 Consecutive Hours, Continuous Positive Airway Pressure (ICD-10-PCS; 2024-07-12)
DX: K50.812 Crohn's disease of both small and large intestine with intestinal obstruction (principal); Z68.41 Body mass index [BMI] 40.0-44.9, adult; Z93.3 Colostomy status; E11.9 Type 2 diabetes mellitus without complications; G47.33 Obstructive sleep apnea (adult) (pediatric); I10 Essential (primary) hypertension; G89.4 Chronic pain syndrome; K21.9 Gastro-esophageal reflux disease without esophagitis; K76.0 Fatty (change of) liver, not elsewhere classified; E78.00 Pure hypercholesterolemia, unspecified; F17.210 Nicotine dependence, cigarettes, uncomplicated; M54.50 Low back pain, unspecified; F32.A Depression, unspecified; F41.9 Anxiety disorder, unspecified; D69.6 Thrombocytopenia, unspecified; E66.01 Morbid (severe) obesity due to excess calories; Z90.49 Acquired absence of other specified parts of digestive tract; Z82.49 Family history of ischemic heart disease and other diseases of the circulatory system; Z82.41 Family history of sudden cardiac death; Z88.5 Allergy status to narcotic agent; Z88.8 Allergy status to other drugs, medicaments and biological substances; Z91.040 Latex allergy status; Z79.84 Long term (current) use of oral hypoglycemic drugs
CPT/HCPCS: 74019; 74022; 74177; 80048; 80053; 82248; 82962; 83036; 83605; 83690; 83735; 83993; 84439; 84443; 84703; 85025; 85027; 85049; 85610; 85652; 86140; 87328; 87329; 94660; 96361; 96374; 96375; 96376; 99285; Q9967

== ENCOUNTER → 2024-07-23 09:17 | Outpatient (REF) | payer MEDICARE, OTHER, SELFPAY | LOC: HWRAD 09:17 | PROVIDERS: ATTENDING PHYSICIAN Internal Medicine Gastroenterology; FAMILY PHYSICIAN Family Medicine | DX: K50.913 Crohn's disease, unspecified, with fistula (principal) | CPT/HCPCS: 74261 ==

== ENCOUNTER → 2024-08-17 06:21 | Day surgery (SDC) | payer MEDICARE, OTHER, SELFPAY ==
[2024-08-17 07:22] LABS: Glucose - Point of Care 120 mg/dl (70-99)
== END ==
LOC: GI 06:21
PROVIDERS: ATTENDING PHYSICIAN Internal Medicine Gastroenterology
DX: K50.80 Crohn's disease of both small and large intestine without complications (principal); K64.8 Other hemorrhoids; Z93.3 Colostomy status
CPT/HCPCS: 45380; 88305; 82962

== ENCOUNTER 2025-02-23 12:09 | Inpatient (IN) | payer MEDICARE, SELFPAY ==
[2025-02-23] VITALS (13 sets, daily range): BP systolic 126–210; BP diastolic 65–117; PULSE 72; BMI 41.7
[2025-02-23 08:43] LABS: COVID-19 Antigen Negative (Negative)
[2025-02-23 08:44] LABS: ALT (SGPT) 35 U/L (0-35); AST (SGOT) 32 U/L (14-36); Albumin 4.4 g/dl (3.5-5.0); Alkaline Phosphatase 76 U/L (38-126); Blood Urea Nitrogen 10 mg/dl (7-17); Calcium 9.5 mg/dl (8.4-10.2); Carbon Dioxide 30 mmol/L (22-30); Chloride 105 mmol/L (98-107); Estimated Creatinine Clearance > 125 ml/min; Glucose 149 mg/dl (70-99); Potassium 3.5 mmol/L (3.5-5.1); Sodium 142 mmol/L (135-145); Total Bilirubin 1.2 mg/dl (0.2-1.3); Total Protein 6.9 g/dl (6.3-8.2); eGFR > 60.00
[2025-02-23 08:45] LABS: Lactic Acid 1.2 mmol/L (0.7-2.0)
[2025-02-23] MEDS: DUONEB 3 ML INH ×4 (08:47→19:53)
--- NOTE | 2025-02-23 09:08 | ED.GENMED ---
History of Present Illness
General
Chief Complaint: Breathing Problem
Source: patient
Exam Limitations: none
Time Seen by Provider: 02/23/25 08:56
History of Present Illness
History of Present Illness:
54yoF with a history of Crohn's disease on Humira, type 2 diabetes, hypertension, tobacco use (1/2 ppd), and chronic pain on opioids presenting via EMS for evaluation of shortness of breath. Patient started with URI symptoms 4 days ago. She has
been experiencing a hacking cough. Breathing has been worsening over the past 24 hours. Her oxygen saturation was 90% yesterday during the day but dropped to 87% last night. Due to her dyspnea, she called EMS this morning. Patient was placed on
nasal cannula prehospital due to oxygen saturation of 90%. She also reports chills and has had fevers up to 101 at home. Patient has several grandchildren who are also sick with similar symptoms. She reports chest tightness but denies any overt
pain. She had pulmonary function tests last year and was told that she was borderline for COPD. Patient was due for her Humira dose yesterday but did not take it due to her symptoms.
Past History
Past History
ED Past Medical History: HTN, NIDDM and Other (Crohn's disease, rectovaginal fistula, PANKAJ, obesity)
ED Past Surgical History: Appendectomy, Bowel resection, Cholecystectomy and Other (Colostomy)
Social History
Tobacco: Smoker
Alcohol: Occasional
Drug: None
Personal: Other (Seperated)
Living: with family
Employment: Employed
Family History
Family History: Hypertension; Negative Sudden
Phy Exam
Physical Exam
Physical Exam:
Appears fatigued, non-toxic. DuJossb in progress
General Physical Exam
General Presentation: mild distress
General Skin: warm and dry
General Habitus: normal
General Mental: alert
ENT Exam
ENT Exam: normocephalic
Cardiovascular Exam
Cardiovascular Exam: regular rate/rhythm and no edema
Pulmonary Exam
Pulmonary Exam: generalized wheezing and other (Diffuse expiratory wheezes. Speaking in full sentences)
Neurological Exam
Neurological Exam: alert
[place] Coma Scale
Eye Opening: Spontaneous
Verbal Response: Oriented
Motor Response: Obeys Commands
GCS Total Score: 15
Skin Exam
Skin Exam: normal color and warm/dry
Psychiatric Exam
Psychiatric Exam: normal mood/affect
Scores
Heart Failure Risk
Heart Failure Risk Score: Not Applicable
Sepsis
Sepsis Screening
Sepsis Assessment: Sepsis Ruled Out
Sepsis Screen
Sepsis Screen: Sepsis Ruled Out
Date: 02/23/25
Time: 10:42
Course
Orders/Labs/Results
Orders:
Orders
02/23/25 08:11
EKG [Electrocardiogram (*1)] Urgent
Reason for Study: Chest Pain
02/23/25 08:12
CR Chest - 2 Views Urgent
Comment:
Reason For Exam: SOB
02/23/25 08:13
EKG- Treatment ONCE
02/23/25 08:15
COVID-19 Antigen Urgent
Source: Nasal Swab
Complete Blood Count/With Diff Urgent
Comprehensive Metabolic Panel Urgent
Lactate Level [Lactic Acid] Urgent
Troponin I Urgent
Influenza A+B Rapid Molecular Urgent
ERIKA Source: Nasal Swab
Specimen Description:
02/23/25 08:35
Ipratropium/Albuterol Sulfate [Duoneb] 3 ml .ROUTE .STK-MED ONE
02/23/25 08:46
Ipratropium/Albuterol Sulfate [Duoneb] 3 ml INH R NOW ONE
02/23/25 09:06
Azithromycin 500 mg/250 ml [Zithromax Infusion] 500 mg in 250 ml IV NOW
Dexamethasone Sod Phosphate [Decadron] 10 mg IV NOW STA
02/23/25 09:08
Ipratropium/Albuterol Sulfate [Duoneb] 3 ml INH R NOW STA
02/23/25 09:31
Blood Culture Q30M
ERIKA Source: Blood/Venous
Specimen Description:
Respiratory Syncytial Virus Urgent
ERIKA Source: Nasal Swab
Specimen Description:
Date Specimen was Collected: 02/23/25
Time Specimen was Collected: 09:20
02/23/25 09:32
Blood Culture Q30M
ERIKA Source: Blood/Venous
Specimen Description:
Acetaminophen [Tylenol] 325 mg PO NOW STA
Oxycodone [Roxicodone] 7.5 mg PO NOW STA
02/23/25 09:43
Amlodipine [Norvasc] 5 mg PO NOW STA
Lisinopril [Zestril] 40 mg PO NOW STA
Abnormal Lab Results
02/23/25
08:15
WBC 4.3 L 10^3/uL
(4.8-10.8)
RBC 5.83 H 10^6/uL
(4.20-5.40)
Hgb 16.8 H g/dL
(12.0-16.0)
Hct 48.6 H %
(37.0-47.0)
Plt Count 118 L 10^3/uL
(130-400)
MPV 10.8 H fL
(7.4-10.4)
Glucose 149 H mg/dl
(70-99)
02/23/25 08:15
02/23/25 08:15
Vital Signs
Initial and Last Documented VS:
Initial Vital Signs
BP
179/111
02/23/25 08:10
Last Documented Vital Signs
Temp Pulse Resp BP Pulse Ox
98.8 F 65 9 180/82 97
02/23/25 08:17 02/23/25 10:00 02/23/25 10:00 02/23/25 10:00 02/23/25 10:00
MDM/Problems Addressed
Differential Diagnosis Includes:
54yoF here with URI symptoms, cough, and SOB x 4 days. Also c/o chills and intermittent fevers. Oxygen saturation 87% on home pulse ox and 90% for EMS. She is hypertensive with otherwise stable vitals. DuoNeb started by nursing staff and neb
treatment in progress during initial exam. Diffuse expiratory wheezing on lung exam. No formal diagnosis of COPD although patient smokes 1/2ppd. Differential diagnosis includes but is not limited to: Viral illness, pneumonia, COPD exacerbation
Initial ED plan: Check cardiac labs, viral swabs, blood cultures, EKG, and chest x-ray. DuoNeb, IV Decadron, and IV azithromycin ordered.
*EKG
Interpreted by ED Provider?: Yes
EKG Intrepretation Date: 02/23/25
Heart Rate: 75
Rate: normal
Rhythm: sinus
[place]: left axis deviation
Interval: normal interval
QRS Pattern: other (LAFB)
Ischemia: no ischemia
*Critical Care Note
Total Time (30-74mins, 75-104mins- exclusive of procedures): Not Applicable
Update Note
Update Note:
Labs overall unremarkable. EKG shows normal sinus rhythm without ischemic changes and troponin within normal limits. COVID/flu/RSV swab negative. Chest x-ray is clear without infiltrates. Clinical presentation consistent with COPD exacerbation,
likely secondary to viral illness. Patient admitted for further management.
ED Attending Note
-
Portions of this chart may have been created with voice recognition software.� Occasional wrong word or��sound alike� substitutions may have occurred due to the inherent limitations of voice recognition software.
Discharge Plan
Departure
Patient Disposition: Admit
Date of Disposition: 02/23/25
Time of Disposition: 09:40
Presentation/result/management discussed w/ accepting MD/DO: Hospitalist
Discharge Problem:
Acute exacerbation of chronic obstructive pulmonary disease
Prescriptions:
No Action
gabapentin 400 MG capsule
400 mg PO BID
amlodipine 5 MG tablet
5 mg PO DAILY
Stelara 90 MG/ML syringe
90 mg SQ Q8W
lisinopril 40 mg Tablet
40 mg PO DAILY
ondansetron HCl 4 mg Tablet
4 mg PO DAILYPRN PRN (Reason: nausea)
cholecalciferol (vitamin D3) [Vitamin D3] 25 mcg (1,000 unit) Capsule
25 mcg PO DAILY
Jardiance 25 mg Tablet
25 mg PO DAILY
famotidine 40 mg Tablet
40 mg PO HS
cyanocobalamin (vitamin B-12) 1,000 mcg Tablet
1,000 mcg PO DAILY
omeprazole 40 mg Capsule,Delayed Release(Dr/Ec)
40 mg PO DAILY
meloxicam 7.5 mg Tablet
7.5 mg PO HS
oxycodone-acetaminophen 7.5-325 mg Tablet
1 tab PO Q6HPRN PRN (Reason: severe pain)
Patient Comments:
07/11/24: last filled 06/21/24 for 120 tablets over 30 days.
prednisone 10 mg tablet
10 mg PO DIRECTED Qty: 70 0RF
Rx Instructions:
40mg daily for one week and cut by 10mg weekly
Stay on 5mg after month or till seen by GI
glimepiride 1 mg Tablet
2 mg PO DAILY Qty: 1 0RF
Rx Instructions:
dose increased on this admission
Interventions
Interventions:
*General Assessment Last Done: 02/23/25 08:17
*Neglect/Abuse Screening Last Done: 02/23/25 08:17
*ED COVID-19 Vaccine History Last Done: 02/23/25 08:17
Discharge Date and Time
Print Language: LATVIAN
[2025-02-23 09:15] LABS: Troponin I < 0.012 ng/ml
[2025-02-23] MEDS: DECADRON 10 MG IV (09:28)
[2025-02-23] MEDS: ZITHROMAX INFUSION 250 IV (09:28)
[2025-02-23 09:38] LABS: % Basophils 0.5 % (0-2); % Immature Granulocytes 0.2 % (0-0.5); % Lymphocytes 45.7 % (20.5-51.1); % Monocytes 5.8 % (1.7-9.3); % Neutrophils 43.8 % (42.2-75.2); Absolute Eosinophils 0.2 10^3/uL (0-0.7); Absolute Monocytes 0.3 10^3/uL (0.1-0.6); Absolute Neutrophils 1.9 10^3/uL (1.4-6.5); Hematocrit 48.6 % (37.0-47.0); Hemoglobin 16.8 g/dL (12.0-16.0); Mean Corp Hgb Conc. 34.6 g/dL (33.0-37.0); Mean Corpuscular Hgb 28.8 pg (27.0-31.0); Mean Corpuscular Volume 83.4 fL (81.0-99.0); Mean Platelet Volume 10.8 fL (7.4-10.4); Nucleated Red Blood Cells % 0 %; Platelet Count 118 10^3/uL (130-400); Red Blood Cell Count 5.83 10^6/uL (4.20-5.40); Red Cell Dist. Width 12.7 % (11.5-14.5); White Blood Cell Count 4.3 10^3/uL (4.8-10.8)
[2025-02-23] MEDS: ZESTRIL 40 MG PO (09:59)
[2025-02-23] MEDS: ROXICODONE 7.5 MG PO (10:00)
[2025-02-23] MEDS: NORVASC 5 MG PO (10:00)
[2025-02-23] MEDS: TYLENOL 325 MG PO (10:00)
--- NOTE | 2025-02-23 11:24 | HPS.HSE ---
Family Physician
-
Family Physician: * NONE
Chief Complaint
-
Shortness of breath
History of Present Illness
54-year-old female with a past medical history of Crohn's disease status post ileocolectomy with colostomy placement, cigarette nicotine dependency, obstructive sleep apnea, hypertension, and diabetes who presents with shortness of breath since
yesterday morning. Patient reports she started feeling short of breath since yesterday morning, and it worsened today. She checked her pulse ox at home, and stated it was 87 percent on room air. Associated symptoms include a productive cough,
wheezing, headache, low-grade fever, chills. Sick contacts include her grandchildren. She has chronic abdominal pain. She also reports dysuria and vaginal itching. No hematuria, no black or bloody stools. She had pulmonary function tests last
year and was told that she was borderline for COPD. Patient was due for her Humira dose yesterday but did not take it due to her symptoms.
Medical History
Past Medical History
Past Medical History: Reports Other (fistulizing Crohn's disease with small and large bowel involvement status post ileocolectomy in 2006, diverting colostomy 2019, parastomal hernia closure in 2020, type 2 diabetes, morbid obesity, obstructive
sleep apnea on CPAP, hypertension, chronic pain, GERD, fatty liver, hyperlipidemia)
Past Surgical History: Reports Other (Appendectomy, Bowel resection, Cholecystectomy and Other (Colostomy))
Social History
Tobacco: Smoker
Alcohol: None
Drug: None
Family History
Family History: Not pertinent
Allergies / Home Medications
Allergies reflects when Allergies were last updated in [facility].
Home Medications with original date entered in [facility]
Allergy/Medication List:
Allergies
Allergy/AdvReac Type Severity Reaction Status Date / Time
hydromorphone HCl Allergy NAUSEA/Ok Verified 02/23/25 08:27
[From Dilaudid] if given
with Zofran
infliximab [From Remicade] Allergy Shortness Verified 02/23/25 08:27
of
Breath/CHEST
PAIN
latex Allergy Swelling Verified 02/23/25 08:27
morphine [Morphine] Allergy NAUSEA/Ok Verified 02/23/25 08:27
if given
with Zofran
Home Medications Table - record
�Medication �Instructions �Recorded �Confirmed
lisinopril 40 mg tablet 40 mg PO DAILY Blood pressure 08/25/22 02/23/25
ondansetron HCl 4 mg tablet 4 mg PO DAILYPRN PRN nausea 10/28/22 02/23/25
cholecalciferol (vitamin D3) 25 25 mcg PO DAILY Supplement 07/11/23 02/23/25
mcg (1,000 unit) capsule (Vitamin
D3)
empagliflozin 25 mg tablet 25 mg PO DAILY Diabetes 06/15/24 02/23/25
(Jardiance)
cyanocobalamin (vitamin B-12) 1,000 mcg PO DAILY Supplement 07/11/24 02/23/25
1,000 mcg tablet
famotidine 40 mg tablet 40 mg PO HS Gastrointestinal Issue 07/11/24 02/23/25
omeprazole 40 mg capsule,delayed 40 mg PO DAILY Gastrointestinal 07/11/24 02/23/25
release Issue
oxycodone-acetaminophen 7.5 mg-325 1 tab PO Q8HPRN PRN severe pain 07/11/24 02/23/25
mg tablet
adalimumab 40 mg/0.8 mL 40 mg SC Q2W 02/23/25 02/23/25
subcutaneous pen kit (Humira Pen)
amlodipine 10 mg tablet 10 mg PO DAILY 02/23/25 02/23/25
gabapentin 800 mg tablet 800 mg PO HS 02/23/25 02/23/25
glimepiride 2 mg tablet 2 mg PO DAILY 02/23/25 02/23/25
Review of Systems
-
A 12 point ROS was completed and negative except as noted: Yes
Physical Exam
Vital Signs
Vital Signs
Temp Pulse Resp BP Pulse Ox
98.8 F 65 9 180/82 97
02/23/25 08:17 02/23/25 10:00 02/23/25 10:00 02/23/25 10:00 02/23/25 10:00
Physical Exam
General: No Apparent Distress and Other (Obese)
HEENT: NormoCephalic, Anicteric, Moist mucous membranes and Atraumatic
Respiratory: Wheezes
Cardiac: S1/S2 and Regular Rhythm
GI: Soft, Non Tender, Non Distended, Ostomy and Other (Ostomy noted)
Musculoskeletal: No Clubbing, No Cyanosis and No Edema
Skin: Warm and Dry
Neuro: Awake, Alert and Oriented
Psych: Calm
Laboratory Results
-
02/23/25 08:15
02/23/25 08:15
Laboratory Results
Lactic Acid 1.2 mmol/L (0.7-2.0) 02/23/25 08:15
Total Bilirubin 1.2 mg/dl (0.2-1.3) 02/23/25 08:15
AST 32 U/L (14-36) 02/23/25 08:15
ALT 35 U/L (0-35) 02/23/25 08:15
Alkaline Phosphatase 76 U/L (38-126) 02/23/25 08:15
Troponin I < 0.012 ng/ml 02/23/25 08:15
Impression/Plan
-
HPI: 54-year-old female with a past medical history of Crohn's disease status post ileocolectomy with colostomy placement, cigarette nicotine dependency, obstructive sleep apnea, hypertension, and diabetes who presents with shortness of breath since
yesterday morning. Patient reports she started feeling short of breath since yesterday morning, and it worsened today. She checked her pulse ox at home, and stated it was 87 percent on room air. Associated symptoms include a productive cough,
wheezing, headache, low-grade fever, chills. Sick contacts include her grandchildren. She has chronic abdominal pain. She also reports dysuria and vaginal itching. No hematuria, no black or bloody stools. She had pulmonary function tests last
year and was told that she was borderline for COPD. Patient was due for her Humira dose yesterday but did not take it due to her symptoms.
#Acute hypoxic respiratory insufficiency
#Probable COPD exacerbation
#Probable acute viral URI
COVID/influenza/RSV negative, chest x-ray negative
Treat with IV steroids, budesonide neb, bronchodilators, azithromycin for anti-inflammatory effects, mucinex
Check sputum Gram stain and culture
Currently requiring 4 L of oxygen, wean as tolerated
#Xup-luuoqwy-fotkmxukt type 2 diabetes
Suspect steroid-induced hyperglycemia
Hold home Jardiance
Continue glimepiride 2 mg daily, start Lantus 20 units at bedtime, NovoLog 4 units AC 3 times daily
Must keep on diabetic diet, sliding scale insulin
#Dysuria
Check urine analysis with reflex culture
#Vaginal itching suspicious for yeast infection
Diflucan 150 mg p.o. x 1
#History of Crohn's disease status post ileocolectomy with colostomy
#Chronic abdominal pain
She is on Humira outpatient
Continue opioids
#Essential hypertension
Continue lisinopril 20 mg daily, hold amlodipine for now
#GERD
Continue Protonix and Pepcid
#Obstructive sleep apnea
Continue CPAP at bedtime
#Obesity due to excess calories
Affects all aspects of care
DVT prophylaxis�subcu Lovenox
Full code
Total time spent to see the patient on the floor, examine the patient, review data and lab results, discuss treatment plan with patient, nursing staff around 78 minutes.
--- NOTE | 2025-02-23 11:51 | CM ---
Reviewed chart and previous admit IA. Met with patient in ER. She lives with her dgtr and her grandchildren in a one level trailer home. She has 3 steps to enter. she owns a cane but does not use it. She is on Medicare due to a disability in past.
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 She was able to find [employer] to use to help with food needs. SHe has diabetes and Chrons. She needed to find a place that she could get food that she could eat. She is pleased with their help and
options.
PCP Imer Harden
Pharmacy: [facility]
She uses a CPAP at home.
PLAN: home , no needs anticipated.
[2025-02-23] MEDS: PULMICORT INH (13:15)
[2025-02-23] MEDS: DUONEB INH (13:15)
[2025-02-23 13:32] LABS: Glucose - Point of Care 214 mg/dl (70-99)
[2025-02-23] MEDS: MUCINEX 1200 MG PO ×2 (14:00→19:47)
[2025-02-23] MEDS: DIFLUCAN 150 MG PO (14:00)
[2025-02-23] MEDS: AMARYL 2 MG PO (14:00)
[2025-02-23] MEDS: NOVOLOG FLEXPEN-MODERATE RESISTANCE 3 UNITS SC (14:01)
[2025-02-23] MEDS: NOVOLOG FLEXPEN 4 UNITS SC ×2 (14:02→17:43)
[2025-02-23 14:21] LABS: Urine Albumin 3+ (Neg - Trace); Urine Bilirubin Negative (Negative); Urine Character Clear (Clear); Urine Color Yellow; Urine Glucose 4+ (Negative); Urine Ketone Negative (Negative); Urine Leukocyte 1+ (Negative); Urine Nitrite Negative (Negative); Urine Occult Blood 2+ (Negative); Urine Urobilinogen Negative (Neg - 1+)
[2025-02-23 14:33] LABS: Urine Red Blood Cell 0-2 /HPF (0-2); Urine Squamous Cell >30 /LPF (Few)
[2025-02-23 14:34] LABS: Urine Bacteria Few (Negative); Urine Yeast Few (Negative)
[2025-02-23] MEDS: ROXICODONE 10 MG PO ×2 (15:33→21:37)
[2025-02-23] MEDS: DECADRON 4 MG IV (17:14)
[2025-02-23] MEDS: LOVENOX 40 MG SC (17:14)
[2025-02-23 17:35] LABS: Glucose - Point of Care 316 mg/dl (70-99)
[2025-02-23] MEDS: NOVOLOG FLEXPEN-MODERATE RESISTANCE 7 UNITS SC (17:42)
[2025-02-23] MEDS: PULMICORT 0.5 MG INH (19:53)
[2025-02-23] MEDS: PEPCID 40 MG PO (21:06)
[2025-02-23 21:32] LABS: Glucose - Point of Care 292 mg/dl (70-99)
[2025-02-23] MEDS: LANTUS 0.2 UNITS SC (21:32)
[2025-02-23] MEDS: NEURONTIN 800 MG PO (22:09)
--- NOTE | 2025-02-24 00:20 | PTCARENOTE ---
pt c/o SOB and chest tightening/ pain after walking back from bathroom (w/o oxygen) After retrieving EKG machine, pt stated that the sensation resolved. Pt has also c/o this in ED. EKG- NSR, left anterior fascicular block (same as on admission). VSS
[2025-02-24] MEDS: DECADRON 4 MG IV ×2 (00:23→07:45)
[2025-02-24 07:11] LABS: Glucose - Point of Care 258 mg/dl (70-99)
[2025-02-24] MEDS: PULMICORT 0.5 MG INH ×2 (07:35→20:45)
[2025-02-24] MEDS: DUONEB 3 ML INH ×4 (07:35→20:45)
[2025-02-24 07:38] VITALS: BP 164/85
[2025-02-24] MEDS: NOVOLOG FLEXPEN-MODERATE RESISTANCE 5 UNITS SC ×3 (07:41→15:26)
[2025-02-24] MEDS: ZITHROMAX 500 MG PO (07:42)
[2025-02-24] MEDS: AMARYL 2 MG PO (07:42)
[2025-02-24] MEDS: NOVOLOG FLEXPEN 4 UNITS SC (07:42)
[2025-02-24] MEDS: ZESTRIL 20 MG PO (07:43)
[2025-02-24] MEDS: MUCINEX 1200 MG PO ×2 (07:43→19:50)
[2025-02-24] MEDS: PROTONIX 40 MG PO (07:43)
--- NOTE | 2025-02-24 08:04 | W.PN.HOSP.TC ---
Today's Communication/Plan
-
see bold
Assessment / Plan
Assessment / Plan
HPI: 54-year-old female with a past medical history of Crohn's disease status post ileocolectomy with colostomy placement, cigarette nicotine dependency, obstructive sleep apnea, hypertension, and diabetes who presents with shortness of breath since
yesterday morning. Patient reports she started feeling short of breath since yesterday morning, and it worsened today. She checked her pulse ox at home, and stated it was 87 percent on room air. Associated symptoms include a productive cough,
wheezing, headache, low-grade fever, chills. Sick contacts include her grandchildren. She has chronic abdominal pain. She also reports dysuria and vaginal itching. No hematuria, no black or bloody stools. She had pulmonary function tests last
year and was told that she was borderline for COPD. Patient was due for her Humira dose yesterday but did not take it due to her symptoms.
#Acute hypoxic respiratory insufficiency
# Acute COPD exacerbation
#Probable acute viral URI
COVID/influenza/RSV negative, chest x-ray negative
Improving on IV steroids, budesonide neb, bronchodilators, azithromycin for anti-inflammatory effects, mucinex
Check sputum Gram stain and culture
Patient known to Dr. Rose, requesting pulmonology consult�consult placed
Currently requiring 4 L of oxygen, wean as tolerated
#Cigarette nicotine dependency
Smokes half pack per day
Cigarette cessation counseling has been provided
Started nicotine patch daily
#Severe bstructive sleep apnea
Continue CPAP at bedtime
#Xmc-hjevkcp-yulpfkvzp type 2 diabetes
Expect steroid-induced hyperglycemia
Hemoglobin A1c 6.5, hold home Jardiance
Continue glimepiride 2 mg daily, started insulin in hospital, increase Lantus 24 units at bedtime, NovoLog 6-8 units AC 3 times daily
Must keep on diabetic diet, sliding scale insulin
#Dysuria
Urine analysis with many squamous cells, follow-up on urine culture
#Vaginal itching suspicious for yeast infection
S/p diflucan 150 mg p.o. x 1 on 02/23
#History of Crohn's disease status post ileocolectomy with colostomy
#Chronic abdominal pain
She is on Humira outpatient
Continue opioids
#Essential hypertension
Continue lisinopril 20 mg daily, hold amlodipine for now due to soft BP
#GERD
Continue Protonix and Pepcid
#Obesity due to excess calories
Affects all aspects of care
DVT prophylaxis�subcu Lovenox
Full code
Total time spent to see the patient on the floor, examine the patient, review data and lab results, discuss treatment plan with patient, nursing staff around 51 minutes.
Physical Exam
General: Morbidly obese, no Apparent Distress
HEENT: NormoCephalic, Anicteric, Moist mucous membranes and Atraumatic
Respiratory: Wheezing noted, improved from prior
Cardiac: S1/S2 and Regular Rhythm
GI: Soft, Non Tender, Non Distended, Ostomy and Other (Ostomy noted)
Musculoskeletal: No Clubbing, No Cyanosis
Skin: Warm and Dry
Neuro: Awake, Alert and Oriented
Psych: Calm
Anticipated Discharge: 24 - 48 hours
Subjective/Interval History
-
Date of Service: February 23, 2025
Patient reports her breathing has improved. She continues to cough. No fever, no vomiting.
Objective Data
-
Labs:
Laboratory Results
02/23/25
08:15
WBC 4.3 L
Hgb 16.8 H
Hct 48.6 H
Plt Count 118 L
Sodium 142
Potassium 3.5
Chloride 105
Carbon Dioxide 30
BUN 10
Creatinine 0.6
Glucose 149 H
Calcium 9.5
Total Bilirubin 1.2
AST 32
ALT 35
Alkaline Phosphatase 76
Vital Signs:
Vital Signs
Temp Pulse Resp BP Pulse Ox
98.7 F 80 18 147/99 95
02/23/25 13:16 02/23/25 13:16 02/23/25 13:16 02/23/25 13:16 02/23/25 13:16
[2025-02-24 08:14] LABS: Blood Urea Nitrogen 24 mg/dl (7-17); Calcium 9.4 mg/dl (8.4-10.2); Carbon Dioxide 26 mmol/L (22-30); Chloride 102 mmol/L (98-107); Estimated Creatinine Clearance 96 ml/min; Glucose 243 mg/dl (70-99); Potassium 3.8 mmol/L (3.5-5.1); Sodium 139 mmol/L (135-145); eGFR > 60.00
[2025-02-24 09:34] LABS: Glycohemoglobin (HgbA1c) 6.5 % (4.0-5.6)
[2025-02-24] MEDS: ROXICODONE 10 MG PO ×3 (09:38→19:50)
--- NOTE | 2025-02-24 11:21 | CON.PUL ---
Consultation
Consultation Request
Date/Time Consultation Requested: 02/24/25
Date/Time Consultation Performed: 02/24/25
Performing Provider: Rose
Reason for Consultation: SOB/COPD
Medical History
-
History of Present Illness:
Patient is a 54-year-old female with a past medical history of Crohn's disease status post ileocolectomy with colostomy placement, cigarette nicotine dependency, obstructive sleep apnea, hypertension, and diabetes who presents with shortness of
breath since yesterday morning. She checked her pulse ox at home, and stated it was 87 percent on room air. Associated symptoms include a productive cough, wheezing, headache, low-grade fever, chills. CXR initially not showing any PNA. She is
placed on IV steroids for suspected AECOPD.
Last seen in our office in 2023 with declined PFTs. Unfortunately ongoing smoking. Has not obtained low dose screening CT. Was due for FU.
Past Medical History
Past Medical History: Other (see list below)
Social History
Tobacco: Smoker
Alcohol: None
Drug: None
Family History
Family History: Reviewed & Not Pertinent
Allergies / Home Medications
Allergies
Allergy/AdvReac Type Severity Reaction Status Date / Time
hydromorphone HCl Allergy NAUSEA/Ok Verified 02/23/25 08:27
[From Dilaudid] if given
with Zofran
infliximab [From Remicade] Allergy Shortness Verified 02/23/25 08:27
of
Breath/CHEST
PAIN
latex Allergy Swelling Verified 02/23/25 08:27
morphine [Morphine] Allergy NAUSEA/Ok Verified 02/23/25 08:27
if given
with Zofran
Home Medications
�Medication �Instructions �Recorded �Confirmed �Last Taken �Type
lisinopril 40 mg tablet 40 mg PO DAILY Blood pressure 08/25/22 02/23/25 07/10/24 History
ondansetron HCl 4 mg tablet 4 mg PO DAILYPRN PRN nausea 10/28/22 02/23/25 06/14/24 History
cholecalciferol (vitamin D3) 25 25 mcg PO DAILY Supplement 07/11/23 02/23/25 07/10/24 History
mcg (1,000 unit) capsule (Vitamin
D3)
empagliflozin 25 mg tablet 25 mg PO DAILY Diabetes 06/15/24 02/23/25 07/10/24 History
(Jardiance)
cyanocobalamin (vitamin B-12) 1,000 mcg PO DAILY Supplement 07/11/24 02/23/25 07/10/24 History
1,000 mcg tablet
famotidine 40 mg tablet 40 mg PO HS Gastrointestinal Issue 07/11/24 02/23/25 07/10/24 History
omeprazole 40 mg capsule,delayed 40 mg PO DAILY Gastrointestinal 07/11/24 02/23/25 07/10/24 History
release Issue
oxycodone-acetaminophen 7.5 mg-325 1 tab PO Q8HPRN PRN severe pain 07/11/24 02/23/25 Unknown History
mg tablet
adalimumab 40 mg/0.8 mL 40 mg SC Q2W 02/23/25 02/23/25 Unknown History
subcutaneous pen kit (Humira Pen)
amlodipine 10 mg tablet 10 mg PO DAILY 02/23/25 02/23/25 Unknown History
gabapentin 800 mg tablet 400 mg PO HS 02/23/25 02/23/25 Unknown History
glimepiride 2 mg tablet 2 mg PO DAILY 02/23/25 02/23/25 Unknown History
Review of Systems
-
History Source: Patient
All other systems: Negative unless noted
Vitals / Labs / Diagnostic Testing
Vital Signs
Temp Pulse Resp BP Pulse Ox
97.9 F 82 14 164/85 94
02/24/25 07:38 02/24/25 07:46 02/24/25 07:46 02/24/25 07:38 02/24/25 11:04
Lab Data
02/23/25 08:15
02/24/25 07:23
Microbiology
02/23/25 09:31 Blood/Venous Blood Culture - Preliminary
No Growth in 24 hours- Final report to follow
02/23/25 09:32 Blood/Venous Blood Culture - Preliminary
No Growth in 24 hours- Final report to follow
02/23/25 09:31 Nasal Swab Respiratory Syncytial Virus Ag - Final
Negative for Respiratory Syncytial Virus.
A false negative result may be obtained with a specimen
collected early in the acute phase. If symptoms persist, a
new specimen should be tested.
02/23/25 08:15 Nasal Swab Influenza Types A & B (TRAVIS) - Final
Negative for Influenza A & B, NAAT
Negative results must be combined with clinical observations
and patient history.
Nucleic Acid Amplification test (NAAT)performed on the
[employer] platform.
Diagnostic Testing:
Physical Exam
-
HEENT: Normocephalic, Anicteric, Moist Mucous Membranes and Other (facial flushing)
Cardiovascular: S1/S2 and Regular Rhythm
Respiratory: Wheeze (R>L) and Non-Labored Respirations
GI: Soft, Non Distended and Non Tender
Neurology: Awake, Alert, Oriented and No Motor Deficits
Skin: Warm, Dry and Good Color
General: Comfortable and Other (NAD)
Assessment
-
Patient is a 54-year-old female with a past medical history of Crohn's disease status post ileocolectomy with colostomy placement, cigarette nicotine dependency, obstructive sleep apnea, hypertension, and diabetes who presents with shortness of
breath since yesterday morning. She checked her pulse ox at home, and stated it was 87 percent on room air. Associated symptoms include a productive cough, wheezing, headache, low-grade fever, chills. CXR initially not showing any PNA. She is
placed on IV steroids for suspected AECOPD. We are consulted for evaluation.
SOB
AECOPD
Leukopenia/thrombocytopenia
Polycythemic, Hb 16.8
Hyperglycemia
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
Severe Obstructive sleep apnea, AHI 58
Atelectasis
Morbid obesity
COPD, mild
Cigarette nicotine dependence, ongoing
Crohn's disease with Colovaginal fistula
c/b small and large bowel involvement status post ileocolectomy in 2006, diverting colostomy 2019
Fatty liver dz
Gastroesophageal reflux disease
NIDDM
HTN
HLD
Chronic pain
Parastomal hernia without obstruction or gangrene s/p parastomal hernia closure in 2020
Appendectomy
Cholecystectomy
Plan
Hypoxemia noted on arrival, O2 vance 87%
She is placed on low supplemental O2
Not known to have O2 at home
Home O2 evaluation eventually
Prior history of lung disease is noted including COPD, ongoing smoking, severe PANKAJ on CPAP--OP records reviewed
Last PFT in 2023 had been declining but she does have restrictive pattern
We will repeat study in AM for re-eval
Suspect patient has AECOPD, agree with IV steroids
She does not wish to continue taking for a prolonged taper, will wean quickly
I will change her IV dose to prednisone 50mg today, can taper quickly over next 48 hours to off
CXR/CT obtained indicating NAD, no need for treatment for infection but can continue azitho for anti-inflammatory treatment
Due for LDCT but can arrange as OP
Prior ECHO results are reviewed indicating stable findings, normal EF
Can check proBNP as well to assess fluid status
Smoking history noted
Smoking cessation advised, NRT added
Weight loss measures recommended
Obesity likely contributing to respiratory symptoms
Risk factors assessed for underlying sleep disordered breathing also noted, PSG in past showing severe PANKAJ
She states she is compliant, resumed on PAP while inpatient, tolerating
Will need outpatient pulmonary evaluation in our office for PFTs and 6MWT
Reviewed with patient
We will follow
Diagnostic Data
Chest X-Ray: 02/23/25- 1. Clear lungs.
2. No significant change compared to prior study.
CT Scan: AP 07/11/24- Postoperative changes of partial colectomy with left lower quadrant colostomy. There are numerous dilated loops of mid/distal small bowel with surrounding edema. This extends to the ileocolonic anastomosis within the right lower
quadrant. Findings may represent active inflammation with developing/partial obstruction , possible developing stricture at the anastomosis with associated slow transit.
Echo: 05/21/24- Normal left ventricular size and systolic function. No regional wall motion abnormalities are seen. LV ejection fraction is 69% by Womack's biplane method of discs. Top normal LV wall thickness (1 cm). Normal diastolic function.
Normal right ventricular size and function. Thickened mitral valve leaflets. Mitral valve opens normally. No mitral regurgitation is seen. Aortic valve is grossly normal but poorly visualized. No aortic regurgitation
is seen. Tricuspid valve opens normally. Trace tricuspid regurgitation. Estimated pulmonary artery pressure of 31 mmHg assuming a right atrial pressure of 3 mmHg.
PFT's: 10-28-2021- FVC 2.74, 81 Fev1 2.25, 85 ratio 85 10 BD response
- FVC 2.74, 83 Fev1 2.02, 75 ratio 74 FeF 25-75 1.91, 67
05/24/2024- Spirometry- FVC 2.35, 69 Fev1 1.76, 66 ratio 74 5 % BD response. (restriction suggested, moderately reduced)
2020- Split study- AHI 58 O2 sat 85, CPAP 11 with AHI 1.2 O2 sat 87.
Reports and relevant images were personally reviewed.
Total time spent on this consultation __76__ minutes which includes review of history, physical exam, medications, laboratory data, personal review of imaging, extensive review of outpatient records, discussion with care team and respiratory therapy.
[2025-02-24 11:40] LABS: Glucose - Point of Care 256 mg/dl (70-99)
[2025-02-24] MEDS: NOVOLOG FLEXPEN 8 UNITS SC ×2 (11:55→15:26)
[2025-02-24 13:09] LABS: NT-proBNP 149 pg/ml
[2025-02-24 14:49] VITALS: BP 105/55
[2025-02-24 15:22] LABS: Glucose - Point of Care 278 mg/dl (70-99)
[2025-02-24] MEDS: TESSALON PERLES 100 MG PO (15:37)
[2025-02-24] MEDS: LOVENOX 40 MG SC (17:10)
[2025-02-24 21:14] LABS: Glucose - Point of Care 277 mg/dl (70-99)
[2025-02-24] MEDS: MELATONIN 5 MG PO (21:29)
[2025-02-24] MEDS: NEURONTIN 800 MG PO (21:29)
[2025-02-24] MEDS: PEPCID 40 MG PO (21:29)
[2025-02-24] MEDS: LANTUS 0.24 UNITS SC (21:30)
[2025-02-24] MEDS: HYCODAN SYRUP 10 ML PO (22:03)
[2025-02-24 22:46] VITALS: BP 138/77
[2025-02-25] MEDS: COMPAZINE 10 MG IV (04:34)
[2025-02-25 07:35] VITALS: BP 135/75
[2025-02-25 07:39] LABS: % Basophils 0.2 % (0-2); % Eosinophils 0.1 % (0-6); % Immature Granulocytes 0.3 % (0-0.5); % Lymphocytes 19.2 % (20.5-51.1); % Monocytes 6.2 % (1.7-9.3); Absolute Lymphocytes 2.1 10^3/uL (1.2-3.4); Absolute Monocytes 0.7 10^3/uL (0.1-0.6); Absolute Neutrophils 7.9 10^3/uL (1.4-6.5); Hematocrit 41.6 % (37.0-47.0); Hemoglobin 13.8 g/dL (12.0-16.0); Mean Corp Hgb Conc. 33.2 g/dL (33.0-37.0); Mean Corpuscular Hgb 28.8 pg (27.0-31.0); Mean Corpuscular Volume 86.8 fL (81.0-99.0); Mean Platelet Volume 11.3 fL (7.4-10.4); Nucleated Red Blood Cells % 0 %; Platelet Count 120 10^3/uL (130-400); Red Blood Cell Count 4.79 10^6/uL (4.20-5.40); White Blood Cell Count 10.7 10^3/uL (4.8-10.8)
[2025-02-25] MEDS: DUONEB 3 ML INH ×2 (07:43→11:19)
[2025-02-25] MEDS: PULMICORT 0.5 MG INH (07:43)
[2025-02-25 07:50] LABS: Glucose - Point of Care 112 mg/dl (70-99)
[2025-02-25] MEDS: NOVOLOG FLEXPEN-MODERATE RESISTANCE SC (08:13)
[2025-02-25] MEDS: DELTASONE 50 MG PO (08:13)
[2025-02-25] MEDS: AMARYL 2 MG PO (08:13)
[2025-02-25] MEDS: MUCINEX 1200 MG PO (08:13)
[2025-02-25] MEDS: ZESTRIL 20 MG PO (08:14)
[2025-02-25] MEDS: ZITHROMAX 500 MG PO (08:14)
[2025-02-25] MEDS: PROTONIX 40 MG PO (08:14)
[2025-02-25] MEDS: NOVOLOG FLEXPEN 6 UNITS SC (08:32)
[2025-02-25] MEDS: ROXICODONE 10 MG PO (09:22)
--- NOTE | 2025-02-25 10:20 | PTCARENOTE ---
Pt OOB to shower and returned to bed stating that she was 'pretty winded'. POX on RA was 95%. Care ongoing.
--- NOTE | 2025-02-25 11:01 | W.PN.PUL3 ---
Today's Communication / Plan
-
-
continue prednisone 40 mg for additional 3 days. 5 days of azithromycin for anti-inflammatory properties
Smoking cessation is essential discussed with patient
Discharged on nebulizer with DuoNebs 3 times a day until clear. Discussed with CM
Short-term outpatient pulmonary [id number] will be listed in the chart.
Hopefully can be discharged today. Patient agreeable.
Assessment
-
Patient is a 54-year-old female with a past medical history of Crohn's disease status post ileocolectomy with colostomy placement, cigarette nicotine dependency, obstructive sleep apnea, hypertension, and diabetes who presents with shortness of
breath since yesterday morning. She checked her pulse ox at home, and stated it was 87 percent on room air. Associated symptoms include a productive cough, wheezing, headache, low-grade fever, chills. CXR initially not showing any PNA. She is
placed on IV steroids for suspected AECOPD. We are consulted for evaluation.
SOB
AECOPD
Leukopenia/thrombocytopenia
Polycythemic, Hb 16.8
Hyperglycemia
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
Severe Obstructive sleep apnea, AHI 58
Atelectasis
Morbid obesity
COPD, mild
Cigarette nicotine dependence, ongoing
Crohn's disease with Colovaginal fistula
c/b small and large bowel involvement status post ileocolectomy in 2006, diverting colostomy 2019
Fatty liver dz
Gastroesophageal reflux disease
NIDDM
HTN
HLD
Chronic pain
Parastomal hernia without obstruction or gangrene s/p parastomal hernia closure in 2020
Appendectomy
Cholecystectomy
Plan
Hypoxemia noted on arrival, O2 vance 87%
She is placed on low supplemental O2
Not known to have O2 at home
Home oxygen assessment today-order has been placed.
Prior history of lung disease is noted including COPD, ongoing smoking, severe PANKAJ on CPAP--OP records reviewed
Last PFT in 2023 had been declining but she does have restrictive pattern
We will repeat study in AM for re-eval
Patient clinically improved-no significant bronchospastic exam
Continue therapy for AECOPD,
Pulmicort nebs BID while in hospital
Duboneb QID patient is interested on a nebulizer machine.-Will discuss with case management. Should continue at home 3-4 times a day until completely clear.
Will decide in the outpatient setting if she would benefit from long-acting bronchodilators.
Continue prednisone, reduce to 40 mg, continue with same dose for the next 3 days and discontinue.
Usually not on inhalers, will discharge on nebulizers with albuterol/ipratropium-discussed with patient.
CXR/CT obtained indicating NAD, no need for treatment for infection but can continue azitho for anti-inflammatory treatment complete 5 days.
-
Due for LDCT but can arrange as OP - pt aware.
Prior ECHO results are reviewed indicating stable findings, normal EF
proBNP- normal.
Smoking history noted-nicotine patch in place per
Smoking cessation advised.
Weight loss measures recommended
Obesity likely contributing to respiratory symptoms
Risk factors assessed for underlying sleep disordered breathing also noted, PSG in past showing severe PANKAJ
She states she is compliant, resumed on PAP while inpatient, tolerating
Last time seen at our office was 05/2024 by Mallory SILVA - missed her last visit per [facility]W.
Will need outpatient pulmonary evaluation in our office for PFTs and 6MWT
-
Discussed with patient, not opposed with discharge planning. She is eager to go home.
Home oxygen assessment today
Arrange for a nebulizer machine with DuoNeb 3 times a day.
Will need short-term pulmonary follow-up
Diagnostic Data
Chest X-Ray: 02/23/25- 1. Clear lungs.
2. No significant change compared to prior study.
CT Scan: AP 07/11/24- Postoperative changes of partial colectomy with left lower quadrant colostomy. There are numerous dilated loops of mid/distal small bowel with surrounding edema. This extends to the ileocolonic anastomosis within the right lower
quadrant. Findings may represent active inflammation with developing/partial obstruction , possible developing stricture at the anastomosis with associated slow transit.
Echo: 05/21/24- Normal left ventricular size and systolic function. No regional wall motion abnormalities are seen. LV ejection fraction is 69% by Womack's biplane method of discs. Top normal LV wall thickness (1 cm). Normal diastolic function.
Normal right ventricular size and function. Thickened mitral valve leaflets. Mitral valve opens normally. No mitral regurgitation is seen. Aortic valve is grossly normal but poorly visualized. No aortic regurgitation
is seen. Tricuspid valve opens normally. Trace tricuspid regurgitation. Estimated pulmonary artery pressure of 31 mmHg assuming a right atrial pressure of 3 mmHg.
PFT's: 10-28-2021- FVC 2.74, 81 Fev1 2.25, 85 ratio 85 10 BD response
- FVC 2.74, 83 Fev1 2.02, 75 ratio 74 FeF 25-75 1.91, 67
05/24/2024- Spirometry- FVC 2.35, 69 Fev1 1.76, 66 ratio 74 5 % BD response. (restriction suggested, moderately reduced)
2020- Split study- AHI 58 O2 sat 85, CPAP 11 with AHI 1.2 O2 sat 87.
Reports and relevant images were personally reviewed.
Subjective Data
-
Date of Service:
Date of Service: February 25, 2025
Objective Data
Data Reviewed
Vital Signs / I&O / Oxygen:
Vital Signs
Temp Pulse Resp BP Pulse Ox
98.1 F 68 16 135/75 95
02/25/25 07:35 02/25/25 07:47 02/25/25 07:47 02/25/25 07:35 02/25/25 10:25
Intake and Output
02/24/25 02/25/25 02/26/25
06:59 06:59 06:59
Intake Total 1660 / 1660 960 / 960
Output Total 200 / 200
Balance 1460 / 1460 960 / 960
SaO2 95
Nasal Cannula flow liters per 2
minute
Labs/Micro/Reports
Lab Data
02/25/25 07:18
02/24/25 07:23
Microbiology
02/23/25 13:58 Urine Urine Culture - Final
02/23/25 09:31 Blood/Venous Blood Culture - Preliminary
No Growth in 48 hours- Final report to follow
02/23/25 09:32 Blood/Venous Blood Culture - Preliminary
No Growth in 48 hours- Final report to follow
02/23/25 09:31 Nasal Swab Respiratory Syncytial Virus Ag - Final
Negative for Respiratory Syncytial Virus.
A false negative result may be obtained with a specimen
collected early in the acute phase. If symptoms persist, a
new specimen should be tested.
02/23/25 08:15 Nasal Swab Influenza Types A & B (TRAVIS) - Final
Negative for Influenza A & B, NAAT
Negative results must be combined with clinical observations
and patient history.
Nucleic Acid Amplification test (NAAT)performed on the
[employer] platform.
[2025-02-25 11:24] LABS: Glucose - Point of Care 190 mg/dl (70-99)
[2025-02-25] MEDS: NOVOLOG FLEXPEN-MODERATE RESISTANCE 1 UNITS SC (12:01)
[2025-02-25] MEDS: NOVOLOG FLEXPEN 8 UNITS SC (12:01)
--- NOTE | 2025-02-25 12:28 | W.PN.HOSP.TC ---
Today's Communication/Plan
-
DC
Assessment / Plan
Assessment / Plan
HPI: 54-year-old female with a past medical history of Crohn's disease status post ileocolectomy with colostomy placement, cigarette nicotine dependency, obstructive sleep apnea, hypertension, and diabetes who presents with shortness of breath since
yesterday morning. Patient reports she started feeling short of breath since yesterday morning, and it worsened today. She checked her pulse ox at home, and stated it was 87 percent on room air. Associated symptoms include a productive cough,
wheezing, headache, low-grade fever, chills. Sick contacts include her grandchildren. She has chronic abdominal pain. She also reports dysuria and vaginal itching. No hematuria, no black or bloody stools. She had pulmonary function tests last
year and was told that she was borderline for COPD. Patient was due for her Humira dose yesterday but did not take it due to her symptoms.
#Acute hypoxic respiratory insufficiency
# Acute COPD exacerbation
#Probable acute viral URI
COVID/influenza/RSV negative, chest x-ray negative
Improving on IV steroids, budesonide neb, bronchodilators, azithromycin for anti-inflammatory effects, mucinex
Check sputum Gram stain and culture
Patient known to Dr. Rose, requesting pulmonology consult�consult placed
Currently requiring 4 L of oxygen, wean as tolerated
#Cigarette nicotine dependency
Smokes half pack per day
Cigarette cessation counseling has been provided
Started nicotine patch daily
#Severe bstructive sleep apnea
Continue CPAP at bedtime
#Vxf-wfaiirw-egaxlffbv type 2 diabetes
Expect steroid-induced hyperglycemia
Hemoglobin A1c 6.5, hold home Jardiance
Continue glimepiride 2 mg daily, started insulin in hospital, increase Lantus 24 units at bedtime, NovoLog 6-8 units AC 3 times daily
Must keep on diabetic diet, sliding scale insulin
#Dysuria
Urine analysis with many squamous cells, follow-up on urine culture
#Vaginal itching suspicious for yeast infection
S/p diflucan 150 mg p.o. x 1 on 02/23
#History of Crohn's disease status post ileocolectomy with colostomy
#Chronic abdominal pain
She is on Humira outpatient
Continue opioids
#Essential hypertension
Continue lisinopril 20 mg daily, hold amlodipine for now due to soft BP
#GERD
Continue Protonix and Pepcid
#Obesity due to excess calories
Affects all aspects of care
DVT prophylaxis�subcu Lovenox
Full [id number] F with PMHx of COPD, currewnt smoker, crohnes diesease s/p colectomy and colostomy, PANKAJ came with worsening ASOB amd managed for COPD exacerbation, rapidly improved, PFT completed, weaned off O2 and can continue with oral Prednisone
for 3 days and azithromycin as per Pulm reccomendations. Strict smoking cessation recommended
#COPD exacerbation
#PANKAJ
cont CPAP
bronchodilators
weaned off O2
taper steroids
strict smoking cessation
ProBNP low -no concern for cardiac component
Outpatient Pulm eval
Azithromycin for antiinflammatory properties
#Mild recurrent thrombocytopenia
At least since 2016
PCP followup
#Nicotine dependency
advised smoking cessation
#DM type 2 with unknown complications
Insulin SS, DM diet, accuchecks
#Morbid obesity
decrease calorie intake
#Asymptomatic bacteriuria
#Vaginal candidiasis
s/p Diflucan
Ucx neg
#PANKAJ
#Essential HTN
#GERD
#Crohns disease
#HLD
cont home meds
DVT ppx lovenox
Full code
I have spent at least 37min reviewing chart, test results, communication with consultants and providing direct patient care
Total time spent to see the patient on the floor, examine the patient, review data and lab results, discuss treatment plan with patient, nursing staff around 51 minutes.
Physical Exam
General: Morbidly obese, no Apparent Distress
HEENT: NormoCephalic, Anicteric, Moist mucous membranes and Atraumatic
Respiratory: Wheezing noted, improved from prior
Cardiac: S1/S2 and Regular Rhythm
GI: Soft, Non Tender, Non Distended, Ostomy and Other (Ostomy noted)
Musculoskeletal: No Clubbing, No Cyanosis
Skin: Warm and Dry
Neuro: Awake, Alert and Oriented
Psych: Calm
Anticipated Discharge: Today
Subjective/Interval History
-
Date of Service: February 25, 2025
Objective Data
-
Labs:
Laboratory Results
02/25/25
07:18
WBC 10.7
Hgb 13.8
Hct 41.6
Plt Count 120 L
Vital Signs:
Vital Signs
Temp Pulse Resp BP Pulse Ox
98.1 F 69 16 135/75 93
02/25/25 07:35 02/25/25 11:21 02/25/25 11:21 02/25/25 07:35 02/25/25 11:21
I&O
02/24/25 02/25/25 02/26/25
06:59 06:59 06:59
Intake Total 1660 / 1660 960 / 960
Output Total 200 / 200
Balance 1460 / 1460 960 / 960
Review of Systems
-
History Source: Patient
All other systems: Reviewed and negative
Physical Exam
-
General: No Apparent Distress
HEENT: Normocephalic
Respiratory: Clear to Auscultation
Cardiac: Regular Rhythm
GI: Soft, Nontender and Nondistended
Musculoskeletal: No Clubbing, No Cyanosis and No Edema
Neuro: Awake, Alert, Oriented and AO x 3
Psych: Calm
--- NOTE | 2025-02-25 12:38 | CM ---
Chart reviewed. CM discussed d/c needs w/ senior project manager. Patient will need neb machine with DuoNebs 3 times a day until clear.
Home O2 assessment ordered to be completed today. Patient wants to be sure she does not need any home O2 as she was having a bit of trouble breathing upon exertion when showering. Patient does not have O2 at home.
Patient interested in meal delivery services. Patient shared her insurance covers meals w/ [employer]. CM provided phone number for patient to call to arrange services.
Patient stated she will have a ride home today if d/c
CM will watch for O2 needs and order neb machine
Plan: Home w/ DME
--- NOTE | 2025-02-25 12:42 | W.DCSUMMARY ---
Discharge Summary
Discharge Data
Date of Admission: 02/23/25
Date of Discharge: 02/25/25
-
Pending Results: No
Hospital Course
54yo F with PMHx of COPD, currewnt smoker, crohnes diesease s/p colectomy and colostomy, PANKAJ came with worsening ASOB amd managed for COPD exacerbation, rapidly improved, PFT completed, weaned off O2 and can continue with oral Prednisone for 3 days
and azithromycin as per Pulm reccomendations. Strict smoking cessation recommended
I have spent at least 37min reviewing chart, test results, communication with consultants and providing direct patient care
PAtient was managed for
#COPD exacerbation
#PANKAJ
#Mild recurrent thrombocytopenia
#Nicotine dependency
#DM type 2 with unknown complications
#Morbid obesity
#Asymptomatic bacteriuria
#Vaginal candidiasis
#PANKAJ
#Essential HTN
#GERD
#Crohns disease
#HLD
Discharge Plan
-
Patient Disposition: Home (Routine Discharge)
Discharge Diagnosis/Procedures: COPD exacerbation
Diet: Diabetic, Carb Controlled
Activity: As tolerated
Referrals:
Mallory Khoury QUALITY REP [Specified Professional Personl] - in one to two weeks
Shelly Rose, DO [Active] - in two to four weeks
NONE,* [Family Provider] -
Prescriptions:
New
prednisone 20 mg tablet
40 mg PO DAILY Qty: 6 0RF
azithromycin 500 mg tablet
500 mg PO DAILY 3 Days Qty: 3 0RF
ipratropium-albuterol 0.5 mg-3 mg(2.5 mg base)/3 mL Solution For Nebulization
3 ml inhalation R QID Qty: 12 0RF
budesonide-formoterol 80-4.5 mcg/actuation HFA aerosol inhaler
1 puff inhalation .once prn MDD 4 Qty: 10.2 0RF
Continued
lisinopril 40 mg Tablet
40 mg PO DAILY
ondansetron HCl 4 mg Tablet
4 mg PO DAILYPRN PRN (Reason: nausea)
cholecalciferol (vitamin D3) [Vitamin D3] 25 mcg (1,000 unit) Capsule
25 mcg PO DAILY
Jardiance 25 mg Tablet
25 mg PO DAILY
famotidine 40 mg Tablet
40 mg PO HS
cyanocobalamin (vitamin B-12) 1,000 mcg Tablet
1,000 mcg PO DAILY
omeprazole 40 mg Capsule,Delayed Release(Dr/Ec)
40 mg PO DAILY
oxycodone-acetaminophen 7.5-325 mg Tablet
1 tab PO Q8HPRN PRN (Reason: severe pain)
glimepiride 2 mg Tablet
2 mg PO DAILY
gabapentin 800 mg Tablet
400 mg PO HS MDD 800mg
Rx Instructions:
2- 400mg tablet HS
amlodipine 10 mg Tablet
10 mg PO DAILY
Humira Pen 40 mg/0.8 mL Pen Injector Kit
40 mg SC Q2W
Patient Comments:
02/23/25: Was due yesterday, 02/22/25, but held off due to symptoms
Discharge Orders:
Discharge Patient (As Directed); Ordered 02/25/25
Ordered By: Nitin Gutiérrez
Discharge Date and Time
Print Language: GREEK
[2025-02-25 13:27] VITALS: BP 174/91
== END 2025-02-25 13:49 | disposition home or self-care (01) | DRG 191 ==
LOC: 4 WEST ACU 12:09
PROVIDERS: Emergency Medicine; ADMITTING PHYSICIAN Family Medicine; ATTENDING PHYSICIAN Internal Medicine; CONSULT PHYSICIAN Internal Medicine; EMERGENCY PHYSICIAN Student in an Organized Health Care Education/Training Program
PROC: 5A09357 Assistance with Respiratory Ventilation, Less than 24 Consecutive Hours, Continuous Positive Airway Pressure (ICD-10-PCS; 2025-02-23)
DX: J44.1 Chronic obstructive pulmonary disease with (acute) exacerbation (principal); J98.11 Atelectasis; K50.80 Crohn's disease of both small and large intestine without complications; G89.29 Other chronic pain; F17.210 Nicotine dependence, cigarettes, uncomplicated; G47.33 Obstructive sleep apnea (adult) (pediatric); R30.0 Dysuria; E66.01 Morbid (severe) obesity due to excess calories; E78.5 Hyperlipidemia, unspecified; K76.0 Fatty (change of) liver, not elsewhere classified; K21.9 Gastro-esophageal reflux disease without esophagitis; R09.02 Hypoxemia; R06.89 Other abnormalities of breathing; B37.31 Acute candidiasis of vulva and vagina; J44.0 Chronic obstructive pulmonary disease with (acute) lower respiratory infection; D69.6 Thrombocytopenia, unspecified; D72.819 Decreased white blood cell count, unspecified; D75.1 Secondary polycythemia; R82.71 Bacteriuria; I10 Essential (primary) hypertension; E11.65 Type 2 diabetes mellitus with hyperglycemia; Z79.620 Long term (current) use of immunosuppressive biologic; Z93.3 Colostomy status; Z90.49 Acquired absence of other specified parts of digestive tract; Z79.84 Long term (current) use of oral hypoglycemic drugs; Z79.52 Long term (current) use of systemic steroids; Z88.5 Allergy status to narcotic agent; Z88.8 Allergy status to other drugs, medicaments and biological substances; Z11.52 Encounter for screening for COVID-19
CPT/HCPCS: 71046; 80048; 80053; 81003; 81015; 82962; 83036; 83605; 83880; 84484; 85025; 87040; 87086; 87502; 87807; 87811; 93005; 94010; 94640; 94660; 96365; 96375; 99285

== ENCOUNTER 2025-06-18 13:44 | Inpatient (IN) | payer MEDICARE, OTHER, SELFPAY ==
[2025-06-18] VITALS (12 sets, daily range): BP systolic 136–208; BP diastolic 74–121; BMI 44.3; BMI 44.0
--- NOTE | 2025-06-18 10:25 | ED.GENMED ---
History of Present Illness
General
Chief Complaint: Swelling
Source: patient
Exam Limitations: none
Time Seen by Provider: 06/18/25 10:14
History of Present Illness
History of Present Illness:
54yoF with a history of hypertension, type 2 diabetes, Crohn's disease on Humira, COPD, obesity, and chronic pain on opioids presenting for evaluation of facial swelling. Symptoms began about 2 days ago with swelling near the angle of the L jaw.
She gets mild swelling from time to time after eating something salty which is typically self-limiting so she was not initially concerned. Her daughter noticed the swelling yesterday which significantly worsened this morning. The swelling is now
extending to the submandibular area and she is having severe pain up to her ear. She had a fever of 101 last night. She reports very mild dysphagia but was able to tolerate PO intake this morning. She has a 'bad tooth' in her left lower gumline
that has been broken for several years. She has not seen a dentist in about 10 years.
Past History
Past History
ED Past Medical History: HTN, NIDDM and Other (Crohn's disease, rectovaginal fistula, PANKAJ, obesity)
ED Past Surgical History: Appendectomy, Bowel resection, Cholecystectomy and Other (Colostomy)
Social History
Tobacco: Smoker
Alcohol: Occasional
Drug: None
Personal: Other (Seperated)
Living: with family
Employment: Employed
Family History
Family History: Hypertension; Negative Sudden
Phy Exam
Physical Exam
Physical Exam:
Appears uncomfortable, non-toxic
General Physical Exam
General Presentation: well appearing
General Skin: warm and dry
General Habitus: normal
General Mental: alert
ENT Exam
ENT Exam: TM's normal, pharynx normal, normocephalic and other (Significant swelling noted to the left mandibular/submandibular area with tenderness. Poor dentition noted. No obvious periapical abscess visualized. Normal phonation. Tolerating
oral secretions.)
Pulmonary Exam
Pulmonary Exam: no respiratory distress
Neurological Exam
Neurological Exam: alert
[place] Coma Scale
Eye Opening: Spontaneous
Verbal Response: Oriented
Motor Response: Obeys Commands
GCS Total Score: 15
Skin Exam
Skin Exam: normal color and warm/dry
Psychiatric Exam
Psychiatric Exam: normal mood/affect
Scores
Heart Failure Risk
Heart Failure Risk Score: Not Applicable
Course
Orders/Labs/Results
Orders:
Orders
06/18/25 10:22
CT Neck With Iv Contrast Urgent
Comment:
Reason For Exam: L facial/submandibular swelling
Complete Blood Count/With Diff Urgent
Comprehensive Metabolic Panel Urgent
06/18/25 10:24
HYDROmorphone [Dilaudid] 1 mg IV NOW STA
Ketorolac [Toradol] 15 mg IV NOW STA
Ondansetron Injectable [Zofran] 4 mg IV NOW STA
06/18/25 12:58
Ampicillin/Sulbactam 3 G [Unasyn] 3 gm 0.9% Sodium Chloride 100 ml [Nss] 100 ml IV NOW
06/18/25 13:21
Admit/Transfer Patient As Directed
Co-Sign Provider:
Level of Care: Inpatient admission
Assign to:: Medical/Surgical
Physician / Group: madalyn
Diagnosis: cellulitis
Reason for Hospitalization: cellulitis
Expected length of stay greater than two midnights?: Yes
ELOS- Estimated Length of Stay in days: 3
I certify the patient meets the requirements for IP care: Yes
06/18/25 13:22
PRN Pain Medication Management As Directed
May give lesser potent ordered pain med per pt: Yes
preference::
Protocol:: Medication orders for pain may be administered in a
manner that supports deferring to patient preference
when the pt is:
- Requesting an ordered lesser potent pain medication.
Least to most potent pain medications are defined
as: acetaminophen < NSAID < tramadol < opioids
(morphine, oxycodone, hydromorphone).
- Requesting a lesser dose of the same medication IF
ORDERED.
- Requesting a less intrusive route of administration
if both routes are prescribed by the provider (PO <
IV).
06/18/25 13:23
Code Status As Directed
Resuscitation Status: Full Code
06/18/25 14:02
Dextrose 50%-Water [Dextrose 50% Syringe] 12.5 grams IV [id number] PRN
Glucagon [GlucaGen] 1 mg IM PRN PRN
06/18/25 14:02
Activity As Directed
Activity Level: Out of Bed-Early Mobility
Bedside Glucose Monitoring As Directed
Frequency: AC&HS
Additional Instructions:: Change to q6h if pt on TPN, tube feeding or not eating
Intake/ Output As Directed
Frequency: Per unit guidelines
Vital Signs As Directed
Frequency: Per unit guidelines
Cpap [RESP] Routine
Patient to use own unit?: No
Set Pressure (cm H2O): 11
DX Deep Vein Thrombosis Video Routine
06/18/25 16:30
Insulin Aspart Corrective Low [Novolog Flexpen-Low Resistance] See Protocol SC AC
06/18/25 18:00
Enoxaparin Sodium [Lovenox] 40 mg SC QPM
06/18/25 20:00
Ampicillin/Sulbactam 3 G [Unasyn] 3 gm 0.9% Sodium Chloride 100 ml [Nss] 100 ml IV Q6H
06/19/25 06:00
Complete Blood Count/No Diff IN AM
Glycohemoglobin (HgbA1c) IN AM
06/19/25 08:00
Amlodipine [Norvasc] 10 mg PO DAILY
Cyanocobalamin [Vitamin B-12] 1,000 mcg PO DAILY
Glimepiride [Amaryl] 1 mg PO DAILY
Lisinopril [Zestril] 40 mg PO DAILY
Meloxicam [Mobic] 15 mg PO DAILY
Pantoprazole [Protonix] 40 mg PO DAILY
06/20/25 06:00
Complete Blood Count/No Diff IN AM
06/21/25 06:00
Complete Blood Count/No Diff IN AM
06/22/25 06:00
Complete Blood Count/No Diff IN AM
Abnormal Lab Results
06/18/25
10:22
Plt Count 113 L 10^3/uL
(130-400)
MPV 11.3 H fL
(7.4-10.4)
Glucose 127 H mg/dl
(70-99)
06/18/25 10:22
06/18/25 10:22
Vital Signs
Initial and Last Documented VS:
Initial Vital Signs
Temp Pulse Resp BP Pulse Ox
98.6 F 78 17 208/121 99
06/18/25 10:07 06/18/25 10:07 06/18/25 10:07 06/18/25 10:07 06/18/25 10:07
Last Documented Vital Signs
Temp Pulse Resp BP Pulse Ox
98.6 F 79 17 192/103 95
06/18/25 10:07 06/18/25 14:38 06/18/25 10:07 06/18/25 14:38 06/18/25 14:30
MDM/Problems Addressed
Differential Diagnosis Includes:
54yoF here with L facial swelling and pain x 2 days. Hx of broken tooth for several years. Had a fever of 101 last night. On Humira for Crohn's. She is hypertensive with otherwise stable vital signs. She is nontoxic-appearing. There is
significant facial swelling noted that extends to the submandibular area. Differential diagnosis includes but is not limited to: Dental abscess, facial cellulitis, sialoadenitis, Rasheed's angina
Initial ED plan: Check CBC, CMP, and CT neck. IV Toradol and Dilaudid for pain.
*Pulse Oximetry
SaO2: 99
Oxygen Mode of Delivery: Room air
Patient hypoxic: no (98%)
*Critical Care Note
Total Time (30-74mins, 75-104mins- exclusive of procedures): Not Applicable
Update Note
Update Note:
Labs overall unremarkable including normal white count. CT limited due to beam hardening artifact from dental hardware. Imaging shows marked cellulitis without obvious abscess. IV Unasyn ordered and patient admitted for further management.
ED Attending Note
-
Portions of this chart may have been created with voice recognition software.� Occasional wrong word or��sound alike� substitutions may have occurred due to the inherent limitations of voice recognition software.
Discharge Plan
Departure
Patient Disposition: Admit
Date of Disposition: 06/18/25
Time of Disposition: 12:58
Presentation/result/management discussed w/ accepting MD/DO: Hospitalist
Discharge Problem:
Facial cellulitis
Interventions
Interventions:
*Risk Screen - Suicide Last Done: 06/18/25 10:09
*General Assessment Last Done: 06/18/25 10:09
*Neglect/Abuse Screening Last Done: 06/18/25 10:09
*ED- Fall Risk Assessment Last Done: 06/18/25 10:18
*ED COVID-19 Vaccine History Last Done: 06/18/25 10:09
ED- Cardiac Assessment Last Done: 06/18/25 10:18
ED- Pulmonary Assessment Last Done: 06/18/25 10:18
ED-Skin Assessment Last Done: 06/18/25 10:18
[2025-06-18] MEDS: TORADOL 15 MG IV (10:38)
[2025-06-18] MEDS: DILAUDID 1 MG IV ×3 (10:38→18:57)
[2025-06-18] MEDS: ZOFRAN 4 MG IV (10:39)
[2025-06-18 10:54] LABS: ALT (SGPT) 28 U/L (0-35); AST (SGOT) 24 U/L (14-36); Albumin 4.3 g/dl (3.5-5.0); Alkaline Phosphatase 78 U/L (38-126); Blood Urea Nitrogen 12 mg/dl (7-17); Calcium 9.1 mg/dl (8.4-10.2); Carbon Dioxide 29 mmol/L (22-30); Chloride 106 mmol/L (98-107); Estimated Creatinine Clearance > 125 ml/min; Glucose 127 mg/dl (70-99); Sodium 141 mmol/L (135-145); Total Protein 6.9 g/dl (6.3-8.2); eGFR > 60.00
[2025-06-18 10:59] LABS: Hematocrit 45.0 % (37.0-47.0); Hemoglobin 15.4 g/dL (12.0-16.0); Mean Corp Hgb Conc. 34.2 g/dL (33.0-37.0); Mean Corpuscular Volume 84.4 fL (81.0-99.0); Nucleated Red Blood Cells % 0 %; Platelet Count 113 10^3/uL (130-400); Red Cell Dist. Width 12.9 % (11.5-14.5)
[2025-06-18 11:26] LABS: Potassium 4.1 mmol/L (3.5-5.1)
--- NOTE | 2025-06-18 13:00 | HPS.HSE ---
Addendum entered and electronically signed by Haseeb Goldsmith MD 06/18/25 14:11:
I saw and examined the patient.
The CORRAL BOSS or PA's note was reviewed and I agree with the note.
Comment: See changes in my documentation
53-year-old female had issues with her left mandibular molar for a few years. Started having pain on Tuesday and had a fever last night. She has not seen a dentist for several years
On examination left facial swelling
Left mandibular molars-broken trrth small pus around the gum
Edema of the left side of the face and mandibular area
Lymph nodes palpable
Cardiovascular system S1-S2 appreciated, short systolic murmur at apex
Chest clear to auscultation S1
Abdomen soft and nontender
Airway patent on exam
No pedal edema
Neuroexam nonfocal
CT of the neck-Limited exam but few accompanying air bubbles in the left mandibular area with moderate cellulitis small left submandibular apical tooth lucency suggests apical cyst cannot rule out abscess
# Dental abscess with facial cellulitis
Admit for IV antibiotics
IV Unasyn 3 g IV every 6 hours
Blood cultures
Liquid diet
Oromaxillary facial surgery consult to see if an I&D is needed
Infectious disease consultation
# Acute hypoxic respiratory insufficiency secondary to sleep apnea obesity hypoventilation-oxygen supplementation as needed. Airway patent
# Immunosuppressed state on Humira patient was due today she did not take it hold off
# Diabetes-hemoglobin A1c-6.5 on 02/24/2025
Continue glimepiride, Accu-Cheks and sliding scale coverage
# Crohn's disease-hold off on Humira was due on 06/18/2025
History of small bowel resection
History of colostomy with reversal
# Hypertension-continue lisinopril and amlodipine
# C4-C5, C5-C6 fusion
# History of migraines
# Sleep apnea-may not be able to use CPAP because of the swollen face-use oxygen now. Can use CPAP if tolerates
# Parastomal hernia without obstruction or gangrene s/p parastomal hernia closure in 2020 /GERD-continue PPI
# Fatty liver
# Obesity with a BMI of 44-weight loss recommended
# Active smoker-cessation counseling done
# DVT prophylaxis-Lovenox
# Full code
Discussed with at bedside
Part of this note was created using voice recognition system. Occasional wrong word or��sound alike� substitutions may have inadvertently occurred due to the inherent limitations of voice recognition software. If noted kindly bring it to my
attention for correction.
Original Note:
Family Physician
-
Family Physician: Imer Harden
Chief Complaint
-
left facial pain
History of Present Illness
54yoF with a history of hypertension, type 2 diabetes, Crohn's disease on Humira, COPD, obesity, and chronic pain on opioids presenting for evaluation of facial swelling. Symptoms began about 2 days ago with swelling near the angle of the L jaw.
Her daughter noticed the swelling yesterday which significantly worsened this morning. The swelling is now extending to the submandibular area and she is having severe pain up to her ear. her lips are swollen and numb. She had a fever of 101 last
night. denied dysphagia or swallowing difficulty. she is complaining of headache. She has a 'bad tooth' in her left lower gumline that has been broken for several years. She has not seen a dentist in about 10 years. denied chest pain, sob. denied
abdominal pain, vomiting or diarrhea. denied dysuria or hematuria. she is nauseaous.
Patient received a dose of Unasyn for cellulitis. Patient received a dose of Dilaudid, Toradol, Zofran
Patient was noted hypoxic. Supplemented with 2 L of oxygen. Admitting for further management
Medical History
Past Medical History
Past Medical History: Reports Other
Additional Past Medical History:
Hypercholesterolemia chronic disease
Hypertension
Chest pain
Obesity
Degenerative disc disease
Type 2 diabetes
Anxiety/depression
Fatty liver
GERD
Tooth abscess
Parastomal hernia
SBO
Past Surgical History: Reports Other
Additional Past Surgical History:
Ileocolectomy
Cholecystectomy
Flex sigmoid repair of rectovaginal fistula
Lumbrical hernia repair colostomy
Parastomal hernia repair
Cervical fusion
Lap repair of parastomal hernia with mesh
Social History
Tobacco: Smoker (More than half pack daily)
Alcohol: None
Drug: None
Living: With Family
Family History
Family History: Not pertinent
Allergies / Home Medications
Allergies reflects when Allergies were last updated in [facility].
Home Medications with original date entered in [facility]
Allergy/Medication List:
Allergies
Allergy/AdvReac Type Severity Reaction Status Date / Time
hydromorphone HCl (From Allergy NAUSEA/Ok Verified 06/18/25 10:07
Dilaudid) if given
with Zofran
infliximab (From Remicade) Allergy Shortness Verified 06/18/25 10:07
of
Breath/CHEST
PAIN
latex Allergy Swelling Verified 06/18/25 10:07
morphine (Morphine) Allergy NAUSEA/Ok Verified 06/18/25 10:07
if given
with Zofran
Home Medications
lisinopril 40 mg tablet 40 mg PO DAILY Blood pressure 08/25/22
cholecalciferol (vitamin D3) 25 mcg (1,000 unit) capsule (Vitamin D3) 25 mcg PO DAILY Supplement 07/11/23
cyanocobalamin (vitamin B-12) 1,000 mcg tablet 1,000 mcg PO DAILY Supplement 07/11/24
omeprazole 40 mg capsule,delayed release 40 mg PO DAILY Gastrointestinal Issue 07/11/24
oxycodone-acetaminophen 7.5 mg-325 mg tablet 1 tab PO Q8HPRN PRN severe pain 07/11/24
adalimumab 40 mg/0.8 mL subcutaneous pen kit (Humira Pen) 40 mg SC Q2W 02/23/25
amlodipine 10 mg tablet 10 mg PO DAILY 02/23/25
glimepiride 1 mg tablet 1 mg PO DAILY 06/18/25
ibuprofen 200 mg tablet (Advil) 200 mg PO Q6HPRN PRN mild pain 06/18/25
meloxicam 15 mg tablet 15 mg PO DAILY 06/18/25
Review of Systems
-
Constitutional: Reports Fever
EENT: Reports No Symptoms
Respiratory: Reports No Symptoms
Cardiac: Reports No Symptoms
Abdomen/GI: Reports No Symptoms
: Reports No Symptoms
Musculoskeletal: Reports No Symptoms
Skin: Reports Other (Left facial redness, swelling)
Neurological: Reports No Symptoms
Endocrine: Reports No Symptoms
Hematologic/Lymphatic: Reports No Symptoms
Psych: Reports No Symptoms
Physical Exam
Vital Signs
Vital Signs
Temp Pulse Resp BP Pulse Ox
98.6 F 78 17 150/88 89
06/18/25 10:07 06/18/25 10:07 06/18/25 10:07 06/18/25 12:09 06/18/25 11:00
Physical Exam
General: Well Developed, Well Nourished and No Apparent Distress
HEENT: NormoCephalic, Moist mucous membranes and Atraumatic
Respiratory: Clear
Cardiac: S1/S2 and Regular Rhythm; No Murmur or Rub
GI: Soft, Non Tender, Non Distended and Normal Bowel Sounds; No Organomegaly
Rectal: Deferred by Provider
Musculoskeletal: No Clubbing and No Cyanosis
Skin: Other (Left facial redness, swelling)
Neuro: AO x 3 and Nonfocal/grossly intact
Psych: Calm
Laboratory Results
-
06/18/25 10:22
06/18/25 10:22
Laboratory Results
Total Bilirubin 1.0 mg/dl (0.2-1.3) 06/18/25 10:22
AST 24 U/L (14-36) 06/18/25 10:22
ALT 28 U/L (0-35) 06/18/25 10:22
Alkaline Phosphatase 78 U/L (38-126) 06/18/25 10:22
Data Reviewed
-
CT Scan: Report Reviewed by me
Lab Data: Labs Reviewed by me
Impression/Plan
-
# Left-sided facial swelling and pain secondary to cellulitis
- Neck CT with impression Evaluation overall limited as a result of beam hardening artifact including metallic dental hardware beam hardening artifact with some soft tissue swelling adjacent to the left side of the mandible as well as a few
accompanying small bubbles of air suggesting an inflammatory/infectious process, at least a marked cellulitis. Small left mandibular tooth apical lucency laterally which suggests an atypical cyst, cannot exclude small apical abscess.. Evaluation
with this CT is overall markedly limited. Recommend complete dental evaluation with [facility] CT if able to be obtained.Incompletely included opacity in the lingula of the left lung, cannot exclude pneumonia.
- IV Unasyn continued
- Tylenol p.o. for fever or pain
- Dilaudid continued
# Acute hypoxia unclear cause likely from PANKAJ
- Patient requiring 2 L of ox
- Continue supplemental oxygen to keep sat greater than 92, wean as tolerated
# Chronic thrombocytopenia
- Platelets 113
- Continue to monitor
#Cigarette nicotine dependency
-Smokes half pack per day
-Cigarette cessation counseling has been provided
-Denied nicotine
#Severe obstructive sleep apnea
Continue CPAP at bedtime
#Yjp-[id number]-asaqgswzy type 2 diabetes
-Glimepiride continued
- Sliding scale, CHO diet
#History of Crohn's disease status post ileocolectomy with colostomy
#Chronic abdominal pain
-She is on Humira outpatient
#Essential hypertension
-Lisinopril, Norvasc continue with hold parameters
#GERD
-Omeprazole continue
#Obesity due to excess calories
-Affects all aspects of care
DVT prophylaxis�subcu Lovenox
# CODE STATUS
- Full code
--- NOTE | 2025-06-18 13:12 | PHANOTE ---
med rec note- patient stated she stopped her duonebs, gabapentin, Symbicort, Jardiance and Januvia
[2025-06-18] MEDS: UNASYN IV ×2 (13:31→20:02)
[2025-06-18] MEDS: NORVASC 10 MG PO (14:37)
[2025-06-18] MEDS: ZESTRIL 40 MG PO (14:38)
--- NOTE | 2025-06-18 15:13 | PTCARENOTE ---
Rn flow tube heater- Admission assessment done over the phone- Patient requesting that she not have any dietary restrictions in her orders as she struggles with Crohns and diabetes and now with the facial cellulitis, she states that she has been
managing her diet for years and she knows what she should eat.
--- NOTE | 2025-06-18 15:49 | CON.ID ---
Consultation
-
Date/Time Consultation Requested: June 18, 2025 1350
Date/Time Consultation Performed: June 18, 2025 1550
Requesting Provider: SHIRA Muller
Performing Provider: Dr. Imani Braxton
Reason for Consultation: Fever, left face swelling
Chief Complaint / Past History
Chief Complaint
Left facial and neck swelling
History of Present Illness
54-year-old female with history of diabetes mellitus, Crohn's disease on Humira who presented to the ED today due to significant left lower face swelling and pain. She reports that she has been having intermittent left lower mouth/jaw pain for
which she thought perhaps from salivary gland stone for the past few weeks. The pain then became persistent. Yesterday she noted left lower jaw redness and swelling. This morning the swelling extended to her neck and therefore came to the ER.
No fevers or chills. Positive left side head pain. No difficulty swallowing. No sinus congestion. She has not received dental care for the past [address] shows soft tissue swelling next to the left mandible with a few small bubbles of
air, small left mandibular tooth apical lucency. She is currently on Unasyn.
Past History
Additional Past Medical History:
Diabetes mellitus type 2
Crohn's disease on Humira
Hypertension
COPD
Class III obesity BMI 4
Sleep apnea
Anxiety/depression
fatty liver
history of tooth abscess
Fatty liver
Tobacco use disorder
SBO
status post ileocolectomy with colostomy
History of repair of rectovaginal fistula
Umbilical hernia repair
Parastomal hernia repair with mesh
Cervical fusion
Appendectomy
Cholecystectomy
Allergy History:
hydromorphone HCl (From Dilaudid) Allergy (Verified 06/18/25 10:07)
NAUSEA/Ok if given with Zofran
infliximab (From Remicade) Allergy (Verified 06/18/25 10:07)
Shortness of Breath/CHEST PAIN
latex Allergy (Verified 06/18/25 10:07)
Swelling
morphine (Morphine) Allergy (Verified 06/18/25 10:07)
NAUSEA/Ok if given with Zofran
Medications Reviewed: Yes
Current Antibiotics:
Unasyn
Social History
Tobacco: Smoker
Alcohol: None
Drug: None
Family History
Family History: Not Pertinent
Review of Systems
Review of Systems
General: Change in Appetite; Negative Fever or Chills
HEENT: Headache; Negative Sinus Problems or Pharyngitis
Cardiovascular: Negative Chest Pain or Dyspnea
Respiratory: Negative Dyspnea or Cough
Gasteroenterology: Negative Nausea, Vomiting or Diarrhea
Genital / Urological: Negative Dysuria or Flank Pain
Endocrine: Negative Weakness
All systems: All other systems were reviewed and were negative
Vital Signs
Temp Pulse Resp BP Pulse Ox
98.6 F 79 17 175/86 95
06/18/25 10:07 06/18/25 14:38 06/18/25 10:07 06/18/25 15:00 06/18/25 15:15
Physical Exam
Physical Exam
Constitutional: No Acute Distress
Head: Other (Left mandibular and submandibular erythema, warm, edema)
Eyes: No Conjunctival Hemorrhage and Sclera Anicteric
Oral: Other (Left lower molar decayed)
Cardiovascular: Regular Rate and S1/S2
Pulmonary: Clear
Gastrointestinal: Soft, Non Tender and Non Distended
Genito-Urinary: Negative CVA Tenderness
Extremities: Negative Edema
Neurological: AO x 3
Lab / Diagnostic Study Results
06/18/25 10:22
06/18/25 10:22
Abs Immat Gran (auto) 0.0 10^3/uL (0-0.05) 06/18/25 10:22
Absolute Neuts (auto) 3.3 10^3/uL (1.4-6.5) 06/18/25 10:22
Absolute Lymphs (auto) 1.6 10^3/uL (1.2-3.4) 06/18/25 10:22
Absolute Monos (auto) 0.4 10^3/uL (0.1-0.6) 06/18/25 10:22
Absolute Basos (auto) 0.0 10^3/uL (0-0.2) 06/18/25 10:22
Immature Gran % 0.2 % (0-0.5) 06/18/25 10:22
Neutrophils % 60.3 % (42.2-75.2) 06/18/25 10:22
Lymphocytes % 28.9 % (20.5-51.1) 06/18/25 10:22
Monocytes % 7.4 % (1.7-9.3) 06/18/25 10:22
Eosinophils % 2.6 % (0-6) 06/18/25 10:22
Basophils % 0.6 % (0-2) 06/18/25 10:22
Microbiology Results
06/18/25 CT Neck: Evaluation overall limited as a result of beam hardening artifact including metallic dental hardware beam hardening artifact with some soft tissue swelling adjacent to the left side of the mandible as well as a few accompanying
small bubbles of air suggesting an inflammatory/infectious process, at least a marked cellulitis. Small left mandibular tooth apical lucency laterally which suggests an atypical cyst, cannot exclude small apical abscess.. Evaluation with this CT is
overall markedly limited. Recommend complete dental evaluation with [facility] CT if able to be obtained. Incompletely included opacity in the lingula of the left lung, cannot exclude pneumonia.
Assessment / Plan
# Odontogenic infection
-Agree with IV Unasyn
- When improved, can transition to oral Augmentin.
- Per oral-maxillary surgeon, outpatient tooth extraction.
# Conditions prior to admission
Diabetes mellitus type 2
Crohn's disease on Humira
Hypertension
COPD
Class III obesity BMI 4
Sleep apnea
Anxiety/depression
fatty liver
history of tooth abscess
Fatty liver
Tobacco use disorder
SBO
status post ileocolectomy with colostomy
History of repair of rectovaginal fistula
Umbilical hernia repair
Parastomal hernia repair with mesh
Cervical fusion
Appendectomy
Cholecystectomy
Care Review
Plan reviewed with: Physician
[2025-06-18 16:30] LABS: Glucose - Point of Care 197 mg/dl (70-99)
--- NOTE | 2025-06-18 16:54 | CON.ORS ---
Consultation - Oral Surgery
Subjective
54 year old female with past medical history of multiple comorbidities Consult for left facial swelling. Patient reports she first notice irritation on the left side on Tuesday but just thought it was her salivary gland which sometimes acts up. When
she woke this morning, her she noticed more significant swelling and presented to the ED. Patient denies nausea, vomiting, fever or chills.
Past Medical History
Past Medical History: Other (see chart)
Past Surgical History: Other (see chart)
Family History: Not Pertinent
Alcohol: None
Drug: None
Medications / Allergies
Allergies
Allergy/AdvReac Type Severity Reaction Status Date / Time
hydromorphone HCl (From Allergy NAUSEA/Ok Verified 06/18/25 10:07
Dilaudid) if given
with Zofran
infliximab (From Remicade) Allergy Shortness Verified 06/18/25 10:07
of
Breath/CHEST
PAIN
latex Allergy Swelling Verified 06/18/25 10:07
morphine (Morphine) Allergy NAUSEA/Ok Verified 06/18/25 10:07
if given
with Zofran
Active Medications
Generic Name Dose Route Start Last Admin
Trade Name Freq PRN Reason Stop Dose Admin
Amlodipine Besylate 10 mg 06/19/25 08:00
Amlodipine 10 Mg Tablet PO 07/17/25 07:59
DAILY FABRIZIO
Cyanocobalamin 1,000 mcg 06/19/25 08:00
Cyanocobalamin 1,000 Mcg Tablet PO 07/17/25 07:59
DAILY FABRIZIO
Dextrose 12.5 grams 06/18/25 14:02
Dextrose 50% (0.5 Grams/Ml) 50 Ml Syringe IV 07/16/25 14:01
[id number] PRN
hypoglycemia
Protocol
Enoxaparin Sodium 40 mg 06/18/25 18:00
Enoxaparin Sodium 40 Mg/0.4 Ml Syringe SC 07/16/25 17:59
QPM FABRIZIO
Glimepiride 1 mg 06/19/25 08:00
Glimepiride 1 Mg Tablet PO 07/17/25 07:59
DAILY FABRIZIO
Glucagon 1 mg 06/18/25 14:02
Glucagon 1 Mg Vial IM 07/16/25 14:01
PRN PRN
hypoglycemia
Protocol
Hydromorphone HCl 1 mg 06/18/25 14:48 06/18/25 15:01
Hydromorphone 1 Mg/Ml Carpuject IV 07/02/25 14:47 1 mg
Q4HPRN PRN Administration
severe pain
Ampicillin Sodium/Sulbactam 120 mls @ 240 mls/hr 06/18/25 20:00
Sodium 3 gm/ Sodium Chloride IV
Q6H FABRIZIO
Insulin Aspart 0 units 06/18/25 16:30
Insulin Aspart Low Resistance 300 Units/3 Ml Pen.Injctr SC 07/16/25 16:29
AC FABRIZIO
Protocol
Lisinopril 40 mg 06/19/25 08:00
Lisinopril 20 Mg Tablet PO 07/17/25 07:59
DAILY FABRIZIO
Meloxicam 15 mg 06/19/25 08:00
Meloxicam (Mobic) 15 Mg Tablet PO 07/17/25 07:59
DAILY FABRIZIO
Pantoprazole Sodium 40 mg 06/19/25 08:00
Pantoprazole 40 Mg Delayed Release Tablet PO 07/17/25 07:59
DAILY FABRIZIO
Sodium Chloride 0 flush 06/18/25 15:00
Sodium Chloride 0.9% (Flush) Syringe IV 07/16/25 14:59
PER PROTOCOL FABRIZIO
Review of Systems
Constitutional: Reports No Symptoms
Eyes: Reports No Symptoms
ENT: Reports Tooth Pain and Other (submandibular swelling)
Cardiovascular: Reports No Symptoms
Respiratory: Reports No Symptoms
Gastrointestinal: Reports No Symptoms
Genitourinary: Reports No Symptoms
Musculoskeletal: Reports No Symptoms
Neurological: Reports No Symptoms
Psychological: Reports No Symptoms
Endocrine: Reports No Symptoms
Hematological: Reports No Symptoms
Vital Signs
Temp Pulse Resp BP Pulse Ox
98.6 F 79 17 143/74 96
06/18/25 10:07 06/18/25 14:38 06/18/25 10:07 06/18/25 16:00 06/18/25 16:15
Physical Exam
General: Awake, Alert, Oriented x 3 and Not in Acute Distress
Cardiac: Regular Rate and Regular Rhythm
Respiratory: Clear to Auscultation Bilaterally
Extra-oral Exam: Edema (left lower jaw and submandibular without fluctuance to suggest abscess), V2 10/10 Bilaterally and V3 10/10 Bilaterally
Intra-oral Exam: Fluctuance (No vestibular fluctuance to suggest abscess. ), Floor of Mouth Soft Without Elevation, Oropharynx Clear and Other (decayed tooth #19)
CT Results
CT reviewed with multiple decayed teeth, most notably #19 with periapical radiolucency. There is no adjacent soft tissue abscess that would be amenable for drainage.
Assessment / Plan
54 year old female consulted for left facial cellulitis Based on physical and radiographic examination, I have recommended IV antibiotics as she is being admitted. No acute surgical intervention is necessary. After 24hrs of IV Abx she can be
discharged on 1 week of PO Amoxicillin 500mg TID and should schedule with her general dentist to discuss treatment option, likely extraction of the offending tooth #19. I have no dietary restrictions at this time and the diet can be advanced as
tolerated. I will sign off. Please reach out to Dr. Durán with any questions or concerns.
Data Reviewed
Diagnostic Imaging: Image personally visualized and interpreted, Report Reviewed by me and Discussed with Patient
CT Scan: Image personally visualized and interpreted, Report Reviewed by me and Discussed with Patient
Labs: Labs Reviewed by me and Discussed with Patient
[2025-06-18] MEDS: NOVOLOG FLEXPEN-LOW RESISTANCE 1 UNITS SC (18:12)
[2025-06-18] MEDS: FLUSH (NSS) 2 FLUSH IV (20:02)
[2025-06-18] MEDS: TYLENOL 650 MG PO (20:57)
[2025-06-18 23:08] LABS: Glucose - Point of Care 142 mg/dl (70-99)
[2025-06-19] VITALS (7 sets, daily range): BP systolic 108–171; BP diastolic 52–95; PULSE 58
[2025-06-19] MEDS: DILAUDID 1 MG IV ×8 (00:13→23:43)
[2025-06-19] MEDS: FLUSH (NSS) 2 FLUSH IV ×2 (00:14→04:35)
[2025-06-19] MEDS: ZOFRAN 4 MG IV ×4 (00:32→23:44)
[2025-06-19] MEDS: TYLENOL 650 MG PO (01:08)
[2025-06-19] MEDS: UNASYN IV ×4 (02:51→19:43)
[2025-06-19] MEDS: ZESTRIL 40 MG PO (07:59)
[2025-06-19] MEDS: PROTONIX 40 MG PO (07:59)
[2025-06-19] MEDS: VITAMIN B-12 1000 MCG PO (08:00)
[2025-06-19] MEDS: NORVASC 10 MG PO (08:00)
[2025-06-19] MEDS: MOBIC 15 MG PO (08:00)
[2025-06-19] MEDS: AMARYL 1 MG PO (08:00)
[2025-06-19 08:11] LABS: Glucose - Point of Care 164 mg/dl (70-99)
[2025-06-19 08:16] LABS: Hematocrit 43.0 % (37.0-47.0); Hemoglobin 14.6 g/dL (12.0-16.0); Mean Corp Hgb Conc. 34.0 g/dL (33.0-37.0); Mean Corpuscular Volume 86.0 fL (81.0-99.0); Platelet Count 114 10^3/uL (130-400); Red Cell Dist. Width 13.0 % (11.5-14.5)
[2025-06-19] MEDS: NOVOLOG FLEXPEN-LOW RESISTANCE 1 UNITS SC ×2 (08:29→12:15)
--- NOTE | 2025-06-19 10:25 | CM ---
Addendum entered by Radha Meeks 06/19/25 10:43:
On O2 2 LPM via n/c.
Original Note:
IA completed. Pt is independent living with daughter in 1 story home; 3 steps to the entrance. .BR is on 1st floor. Has had VN in the past for colostomy care; doesn't recall which agency was used. No hx of SNF. Has a single point cane if needed.
PCP, Rx and insurance confirmed with pt
Plan: D/C to home. will follow for D/C needs
PCP:Imer Harden
Rx: [facility] on [address]
[2025-06-19 11:10] LABS: Glycohemoglobin (HgbA1c) 7.2 % (4.0-5.6)
--- NOTE | 2025-06-19 11:17 | W.PN.ID1 ---
Date of Service
Date of Service: June 19, 2025
Today's Communication
Continue Unasyn.
Assessment / Plan
# Odontogenic infection
# fever
- Continue with IV Unasyn (d2)
- No objection to steroid to decrease inflammation.
- Trend temps
- Per oral-maxillary surgeon, outpatient tooth extraction.
# Conditions prior to admission
Diabetes mellitus type 2
Crohn's disease on Humira
Hypertension
COPD
Class III obesity BMI 4
Sleep apnea
Anxiety/depression
fatty liver
history of tooth abscess
Fatty liver
Tobacco use disorder
SBO
status post ileocolectomy with colostomy
History of repair of rectovaginal fistula
Umbilical hernia repair
Parastomal hernia repair with mesh
Cervical fusion
Appendectomy
Cholecystectomy
Chief Complaint
-: Fever and Other
Subjective / Review of Systems
c/o neck swelling extending to right side. + head pain.
Vital Signs / Physical Exam
Vital Signs
Vital Signs
Temp Pulse Resp BP Pulse Ox
98.7 F 73 18 171/95 95
06/19/25 08:27 06/19/25 08:27 06/19/25 08:27 06/19/25 08:27 06/19/25 08:27
Selected Entries
06/18/25
23:45
Temp 100.6 F H
Physical Exam
Constitutional: Non-toxic
Head: Other (Left mandibular edema/erythema extending to left submandibular and across to left neck, + warm)
Eyes: No Conjunctival Hemorrhage and Sclera Anicteric
Cardiovascular: Regular Rate and S1/S2
Pulmonary: Clear
Gastrointestinal: Soft, Non Tender, Non Distended and Normal Bowel Sounds
Genito-Urinary: Negative CVA Tenderness
Extremities: Negative Edema
Neurological: AO x 3; Negative Meningeal Signs
Objective Data
Lab Data
Lab Results
06/19/25 07:43
06/18/25 10:22
Estimated Creat Clear > 125 ml/min 06/18/25 10:22
Total Bilirubin 1.0 mg/dl (0.2-1.3) 06/18/25 10:22
AST 24 U/L (14-36) 06/18/25 10:22
ALT 28 U/L (0-35) 06/18/25 10:22
Alkaline Phosphatase 78 U/L (38-126) 06/18/25 10:22
Most recent labs reviewed.
Micro Results:
06/18/25 23:34 Blood Culture - Pending
Blood/Venous
06/18/25 23:19 Blood Culture - Pending
Blood/Venous
06/18/25 CT Neck: Evaluation overall limited as a result of beam hardening artifact including metallic dental hardware beam hardening artifact with some soft tissue swelling adjacent to the left side of the mandible as well as a few accompanying
small bubbles of air suggesting an inflammatory/infectious process, at least a marked cellulitis. Small left mandibular tooth apical lucency laterally which suggests an atypical cyst, cannot exclude small apical abscess.. Evaluation with this CT is
overall markedly limited. Recommend complete dental evaluation with [facility] CT if able to be obtained. Incompletely included opacity in the lingula of the left lung, cannot exclude pneumonia.
Care Review
Plan reviewed with: Physician (Dr. Boston)
[2025-06-19 12:11] LABS: Glucose - Point of Care 151 mg/dl (70-99)
[2025-06-19] MEDS: DECADRON 2 MG IV ×2 (12:17→19:43)
--- NOTE | 2025-06-19 12:53 | W.PN.HOSP.TC ---
Today's Communication/Plan
-
IV Unasyn
Start IV Decadron
Monitor airway
Titrate analgesics
Assessment / Plan
Assessment / Plan
#Odontogenic abscess with facial cellulitis
-Presented with pain near left mandibular molar and fever; multiple issues with that teeth over the years
-CT neck with contrast showed signs of moderate left mandibular cellulitis with apical tooth lucency suspicious for abscess
-Upon arrival was started on IV Unasyn 3 g every 6 hours following blood cultures, started on modified diet
-Evaluated by infectious disease and OMF, recommended 24 hours of antibiotics and OP follow-up in office for teeth extraction
-As of this morning has discomfort still, swelling slightly worse per her history
-Continue with IV Unasyn for now, follow culture, trend CBC and temperature curve
-Start IV Decadron 3 mg every 8 hours for associated edema, airway protection
#Acute hypoxemic respiratory insufficiency
#PANKAJ/OHS
-Likely associated with habitus; no stridor or signs of upper airway obstruction
-Patient uses home CPAP; no known history of pulmonary HTN
-Holding off on CPAP due to facial cellulitis and odontogenic infection
-Continue with O2 via nasal cannula, SpO2 goal >90%
#Crohn's disease
#Immunosuppressed status
-Home regimen includes Humira 40 mg every 2 weeks SQ
-Immunosuppressed status likely contributing to infection
-Holding Humira while on antibiotics
-No signs of flare at this time
#NIDDM 2
-A1c 7.2%; no known history of microvascular complications or ASCVD
-Home regimen includes glimepiride; also on lisinopril for kidney protection
-Transition to ISS with Accu-Cheks here, BG goal 140-180
#Primary hypertension
-No known history of hypertensive systemic disease
-Home regimen includes amlodipine 10 mg, lisinopril 40 mg daily
-Continue home regimen and monitor vitals
#GERD
#Status post parastomal hernia closure (2020)
-Home regimen includes omeprazole 40 mg daily
-No known history of Carias's esophagus or erosive esophagitis
#MASH
#Morbid obesity
-BMI 44, affects all aspects of care
-Check FLP for tomorrow morning, consider starting statin
-Could also consider SGLT2i which does have some evidence of benefit in MASH
-Should also have consideration for GLP 1 agonist
-Encourage 30 minutes of aerobic activity daily
#Active tobacco user
-Encourage cessation, counseling provided
-Nicotine patches at discharge
Diet: Regular
DVT prophylaxis: SQ Lovenox
CODE STATUS: Full code
Disposition: Home when medically stable
Anticipated Discharge: Within 24 hours
Subjective/Interval History
-
Date of Service: June 19, 2025
Objective Data
-
Labs:
Laboratory Results
06/19/25
07:43
WBC 5.3
Hgb 14.6
Hct 43.0
Plt Count 114 L
Vital Signs:
Vital Signs
Temp Pulse Resp BP Pulse Ox
98.7 F 73 18 171/95 95
06/19/25 08:27 06/19/25 08:27 06/19/25 08:27 06/19/25 08:27 06/19/25 08:27
I&O
06/18/25 06/19/25 06/20/25
06:59 06:59 06:59
Intake Total 240 / 240 480 / 480
Balance 240 / 240 480 / 480
[2025-06-19 16:56] LABS: Glucose - Point of Care 321 mg/dl (70-99)
[2025-06-19] MEDS: NOVOLOG FLEXPEN-LOW RESISTANCE 4 UNITS SC (17:15)
[2025-06-19 21:37] LABS: Glucose - Point of Care 304 mg/dl (70-99)
[2025-06-19] MEDS: NOVOLOG FLEXPEN 5 UNITS SC (22:06)
[2025-06-20 00:32] LABS: Glucose - Point of Care 284 mg/dl (70-99)
[2025-06-20] MEDS: UNASYN IV ×3 (01:08→14:13)
[2025-06-20] MEDS: DECADRON 2 MG IV ×2 (03:41→11:44)
[2025-06-20 04:31] VITALS: BP 141/87
[2025-06-20] MEDS: DILAUDID 1 MG IV ×3 (04:32→12:37)
[2025-06-20 07:12] VITALS: BP 143/98
[2025-06-20 07:20] LABS: Glucose - Point of Care 246 mg/dl (70-99)
[2025-06-20] MEDS: VITAMIN B-12 1000 MCG PO (07:50)
[2025-06-20] MEDS: NOVOLOG FLEXPEN-LOW RESISTANCE 2 UNITS SC (07:50)
[2025-06-20] MEDS: PROTONIX 40 MG PO (07:50)
[2025-06-20] MEDS: ZESTRIL 40 MG PO (07:50)
[2025-06-20] MEDS: NORVASC 10 MG PO (07:50)
[2025-06-20] MEDS: AMARYL 1 MG PO (07:50)
[2025-06-20] MEDS: MOBIC 15 MG PO (07:50)
[2025-06-20 08:03] LABS: Hematocrit 41.7 % (37.0-47.0); Hemoglobin 14.1 g/dL (12.0-16.0); Mean Corp Hgb Conc. 33.8 g/dL (33.0-37.0); Mean Corpuscular Volume 84.6 fL (81.0-99.0); Nucleated Red Blood Cells % 0 %; Platelet Count 118 10^3/uL (130-400); Red Cell Dist. Width 12.7 % (11.5-14.5)
[2025-06-20 08:21] LABS: Blood Urea Nitrogen 18 mg/dl (7-17); Calcium 9.4 mg/dl (8.4-10.2); Carbon Dioxide 30 mmol/L (22-30); Chloride 101 mmol/L (98-107); Estimated Creatinine Clearance 114 ml/min; Glucose 250 mg/dl (70-99); HDL Cholesterol 60 mg/dl; LDL Cholesterol, Calculated 110 mg/dl; Potassium 4.8 mmol/L (3.5-5.1); Sodium 136 mmol/L (135-145); Very Low Density Lipoprotein 20 mg/dl (0-30); eGFR > 60.00
--- NOTE | 2025-06-20 11:35 | W.PN.HOSP.TC ---
Today's Communication/Plan
-
Transition to oral antibiotics and steroid
Follow-up with dentistry and PCP
Assessment / Plan
Assessment / Plan
#Odontogenic abscess with facial cellulitis
-Presented with pain near left mandibular molar and fever; multiple issues with that teeth over the years
-CT neck with contrast showed signs of moderate left mandibular cellulitis with apical tooth lucency suspicious for abscess
-Upon arrival was started on IV Unasyn 3 g every 6 hours following blood cultures, started on modified diet
-Evaluated by infectious disease and OMF, recommended 24 hours of antibiotics and OP follow-up in office for teeth extraction
-As of this morning has discomfort still, clinically improved, off oxygen and swelling decreased with steroid
-Transition IV Unasyn to oral Augmentin with plan to complete 7 days total
-Transition IV Decadron to prednisone 40 mg daily to complete 7 days
-Follow-up in office with dentist after discharge, see PCP within 1 week
-Wound culture sent this morning, can follow-up as OP
#Acute hypoxemic respiratory insufficiency
#PANKAJ/OHS
-Likely associated with habitus; no stridor or signs of upper airway obstruction
-Patient uses home CPAP; no known history of pulmonary HTN
-Holding off on CPAP due to facial cellulitis and odontogenic infection
-Continue with O2 via nasal cannula, SpO2 goal >90%
-Resolved
#Crohn's disease
#Immunosuppressed status
-Home regimen includes Humira 40 mg every 2 weeks SQ
-Immunosuppressed status likely contributing to infection
-Holding Humira while on antibiotics
-No signs of flare at this time
#NIDDM 2
-A1c 7.2%; no known history of microvascular complications or ASCVD
-Home regimen includes glimepiride; also on lisinopril for kidney protection
-Transition to ISS with Accu-Cheks here, BG goal 140-180
#Primary hypertension
-No known history of hypertensive systemic disease
-Home regimen includes amlodipine 10 mg, lisinopril 40 mg daily
-Continue home regimen and monitor vitals
#GERD
#Status post parastomal hernia closure (2020)
-Home regimen includes omeprazole 40 mg daily
-No known history of Carias's esophagus or erosive esophagitis
#MASH
#Morbid obesity
-BMI 44, affects all aspects of care
-Check FLP for tomorrow morning, consider starting statin
-Could also consider SGLT2i which does have some evidence of benefit in MASH
-Should also have consideration for GLP 1 agonist
-Encourage 30 minutes of aerobic activity daily
#Active tobacco user
-Encourage cessation, counseling provided
-Nicotine patches at discharge
Diet: Regular
DVT prophylaxis: SQ Lovenox
CODE STATUS: Full code
Disposition: Home when medically stable
Anticipated Discharge: Today
Subjective/Interval History
-
Date of Service: June 20, 2025
Seen and examined at the bedside. No acute events reported overnight. AFVSS this morning
Patient feels well today, states swelling is much better than yesterday.
Denies any new complaints. Denies dyspnea, chest pain, fevers. States she feels ready for discharge
Objective Data
-
Labs:
Laboratory Results
06/20/25
07:17
WBC 4.6 L
Hgb 14.1
Hct 41.7
Plt Count 118 L
Sodium 136
Potassium 4.8
Chloride 101
Carbon Dioxide 30
BUN 18 H
Creatinine 0.7
Glucose 250 H
Calcium 9.4
Vital Signs:
Vital Signs
Temp Pulse Resp BP Pulse Ox
97.6 F 55 14 143/91 94
06/20/25 07:12 06/20/25 07:50 06/20/25 07:12 06/20/25 07:50 06/20/25 07:12
I&O
06/19/25 06/20/25 06/21/25
06:59 06:59 06:59
Intake Total 240 / 240 720 / 720 120 / 120
Balance 240 / 240 720 / 720 120 / 120
Review of Systems
-
History Source: Patient
All other systems: Reviewed and negative
Physical Exam
-
General: Well Developed, No Apparent Distress and Comfortable
HEENT: Normocephalic, Atraumatic, Moist Mucous Membranes, Anicteric and Other (Tenderness to left jaw, subcutaneous edema improved)
Respiratory: Clear to Auscultation and Non Labored Respirations; Negative Wheezes, Rales, Rhonchi or Accessory Resp Muscle Use
Cardiac: Regular Rhythm and S1/S2; Negative Murmur, Rub or Gallop
GI: Soft, Nontender, Nondistended and Normal Bowel Sounds
Musculoskeletal: No Clubbing, No Cyanosis and No Edema
Skin: Warm, Dry and Normal Turgor; Negative Rash
Neuro: AO x 3, Nonfocal/Grossly Intact and Central Nerve's Intact
Psych: Calm
Data Reviewed
-
Labs: Labs Reviewed by me and Discussed with Patient
[2025-06-20 11:52] LABS: Glucose - Point of Care 262 mg/dl (70-99)
[2025-06-20] MEDS: NOVOLOG FLEXPEN-LOW RESISTANCE 3 UNITS SC (11:52)
--- NOTE | 2025-06-20 12:46 | W.PN.ID1 ---
Date of Service
Date of Service: June 20, 2025
Today's Communication
Can transition IV Unasyn (d3) to Augmentin 875mg po bid x 14d.
Assessment / Plan
# Odontogenic infection
# fever resolved
- Can transition IV Unasyn (d3) to Augmentin 875mg po bid x 14d.
- Per oral-maxillary surgeon, outpatient tooth extraction.
# Conditions prior to admission
Diabetes mellitus type 2
Crohn's disease on Humira
Hypertension
COPD
Class III obesity BMI 4
Sleep apnea
Anxiety/depression
fatty liver
history of tooth abscess
Fatty liver
Tobacco use disorder
SBO
status post ileocolectomy with colostomy
History of repair of rectovaginal fistula
Umbilical hernia repair
Parastomal hernia repair with mesh
Cervical fusion
Appendectomy
Cholecystectomy
Chief Complaint
-: Fever and Other
Subjective / Review of Systems
Improved on steroid.
Vital Signs / Physical Exam
Vital Signs
Vital Signs
Temp Pulse Resp BP Pulse Ox
97.6 F 55 14 143/91 94
06/20/25 07:12 06/20/25 07:50 06/20/25 07:12 06/20/25 07:50 06/20/25 07:12
Physical Exam
Constitutional: Non-toxic
Head: Other (Left mandibular edema/erythema extending to left submandibular and across to left neck decreased)
Eyes: No Conjunctival Hemorrhage and Sclera Anicteric
Cardiovascular: Regular Rate and S1/S2
Pulmonary: Clear
Gastrointestinal: Soft, Non Tender, Non Distended and Normal Bowel Sounds
Genito-Urinary: Negative CVA Tenderness
Extremities: Negative Edema
Neurological: AO x 3; Negative Meningeal Signs
Objective Data
Lab Data
Lab Results
06/20/25 07:17
06/20/25 07:17
Estimated Creat Clear 114 ml/min 06/20/25 07:17
Total Bilirubin 1.0 mg/dl (0.2-1.3) 06/18/25 10:22
AST 24 U/L (14-36) 06/18/25 10:22
ALT 28 U/L (0-35) 06/18/25 10:22
Alkaline Phosphatase 78 U/L (38-126) 06/18/25 10:22
Most recent labs reviewed.
Micro Results:
06/20/25 10:03 Wound Culture - Pending
Abscess Gram Stain - Preliminary
06/18/25 23:34 Blood Culture - Preliminary
Blood/Venous No Growth in 24 hours- Final report to follow
06/18/25 23:19 Blood Culture - Preliminary
Blood/Venous No Growth in 24 hours- Final report to follow
06/18/25 CT Neck: Evaluation overall limited as a result of beam hardening artifact including metallic dental hardware beam hardening artifact with some soft tissue swelling adjacent to the left side of the mandible as well as a few accompanying
small bubbles of air suggesting an inflammatory/infectious process, at least a marked cellulitis. Small left mandibular tooth apical lucency laterally which suggests an atypical cyst, cannot exclude small apical abscess.. Evaluation with this CT is
overall markedly limited. Recommend complete dental evaluation with [facility] CT if able to be obtained. Incompletely included opacity in the lingula of the left lung, cannot exclude pneumonia.
Care Review
Plan reviewed with: Physician (Dr. Boston)
--- NOTE | 2025-06-20 13:10 | EDCM ---
Met with pt at bedside. IMM given to patient and placed on chart. Pt for discharge today to home without needs.
Plan: Discharged to home without needs.
[2025-06-20 14:52] VITALS: BP 147/82
--- NOTE | 2025-06-21 12:46 | W.DCSUMMARY ---
Discharge Summary
Discharge Data
Date of Admission: 06/18/25
Date of Discharge: 06/20/25
Total time spent discharging patient (in min): 35
-
Pending Results: Yes
Additional Pending Results:
Tooth Abscess wound culture
Hospital Course
Discharging Physician : Manuel Boston DO
Disposition : Home
Principal Discharge diagnosis :
Odontogenic abscess
Facial cellulitis
NIDDM with hyperglycemia
Chronic Discharge diagnosis :
Crohn's disease on anti-TNF alpha therapy
PANKAJ on CPAP
NIDDM
MASH
Primary hypertension
Tobacco use
S/p cervical fusion
H/O SBO and colostomy
Hospital Course :
54-year-old female that presented with left-sided tooth pain, facial swelling. Initial CT scan demonstrating signs of odontogenic abscess within the left mandibular dental tissue and signs of facial cellulitis overlying the abscess. Was started on
IV Unasyn and treated with this antibiotic throughout course for empiric oropharyngeal coverage. Evaluated by oral maxillofacial surgery who did not feel inpatient intervention was warranted, recommended OP follow-up with dentistry for tooth
extraction. Evaluated by infectious disease who agreed with antibiotic choice. On day 2 of hospitalization she had worsening swelling to the submandibular soft tissues. Was started on a steroid regimen which helped improve edema. Patient had
clinical improvement throughout hospital stay. On 06/20/2025 was transition to oral Augmentin 875-125 mg every 12 hours to complete 14-day course. Provided steroid taper over the 12-day antibiotic regimen. Recommended that she follow-up with her
PCP and dentist.
Consultants :
Imani Braxton MD -- infectious disease
Jacob Durán MD -- oral-maxillofacial surgery
Important imaging findings :
CT neck with IV contrast (06/18/2025)
IMPRESSION: Evaluation overall limited as a result of beam hardening artifact including metallic dental hardware beam hardening artifact with some soft tissue swelling adjacent to the left side of the mandible as well as a few accompanying small
bubbles of air suggesting an inflammatory/infectious process, at least a marked cellulitis. Small left mandibular tooth apical lucency laterally which suggests an atypical cyst, cannot exclude small apical abscess.. Evaluation with this CT is
overall markedly limited. Recommend complete dental evaluation with [facility] CT if able to be obtained. Incompletely included opacity in the lingula of the left lung, cannot exclude pneumonia.
Procedure findings : N/A
Follow-up :
-Follow-up with dentist within 2 to 3 days of discharge, information provided for local dentist
-Follow-up with your family doctor within 1 week of discharge
-14-days total of antibiotic and steroid taper
-Consideration for GLP-1 as outpatient, encourage aerobic activity as tolerated
-Wound culture results from tooth abscess, can be reviewed with PCP
Discharge Plan
-
Patient Disposition: Home (Routine Discharge)
Discharge Diagnosis/Procedures: Odontogenic abscess
Facial cellulitis
Hypoxemia
Condition: Fair
Diet: Low Cholesterol and Diabetic, Carb Controlled
Activity: As tolerated
Additional Activity: Goal: 30 minutes of aerobic exercise daily
Driving Restrictions: As prior to admission
Bathing Restrictions: None
Blood Work: Follow-up with your family doctor for repeat labs
Activity Restrictions/Additional Instructions:
After discharge from the hospital schedule an appointment with your dentist for consideration of tooth extraction. Contact office of Anup Garcia DDS, #[phone] to schedule appointment for tooth extraction
Follow-up with your family doctor, should be seen in office within 1 week of discharge from hospital
Instructions: Dental abscess
Referrals:
Imer Harden MD [Family Provider, Family Practice]
Additional Discharge Medication Instructions: Take Augmentin 875-125 mg every 12 hours for 12 more days after discharge
Take prednisone 40 mg daily with taper
5-day course of oxycodone and as needed Zofran provided
Hold off on Humira until you complete antibiotics and see your dentist, contact your fruit vendor if you have questions on resuming Humira
Do not take both meloxicam and ibuprofen, both are NSAIDs and taking them together can put you at risk for kidney dysfunction or gastrointestinal bleeding
Prescriptions:
New
oxycodone 10 mg tablet
10 mg PO Q8H PRN (Reason: Pain) 5 Days Qty: 15 0RF
ondansetron 4 mg tablet,disintegrating
4 mg PO Q8H PRN (Reason: nausea and vomiting) 5 Days Qty: 15 0RF
amoxicillin-pot clavulanate 875-125 mg tablet
1 tab PO Q12H 13 Days Qty: 26 0RF
prednisone 10 mg tablet
See Taper PO DIRECTED Qty: 30 0RF
Taper: Prednisone DC Starting at 40 mg daily
40 mg Daily for 3 Days and 0 Hour
30 mg Daily for 3 Days and 0 Hour
20 mg Daily for 3 Days and 0 Hour
10 mg Daily for 3 Days and 0 Hour
Continued
lisinopril 40 mg Tablet
40 mg PO DAILY
cholecalciferol (vitamin D3) [Vitamin D3] 25 mcg (1,000 unit) Capsule
25 mcg PO DAILY
cyanocobalamin (vitamin B-12) 1,000 mcg Tablet
1,000 mcg PO DAILY
omeprazole 40 mg Capsule,Delayed Release(Dr/Ec)
40 mg PO DAILY
amlodipine 10 mg Tablet
10 mg PO DAILY
meloxicam 15 mg Tablet
15 mg PO DAILY
glimepiride 1 mg Tablet
1 mg PO DAILY
Held
oxycodone-acetaminophen 7.5-325 mg Tablet
1 tab PO Q8HPRN PRN (Reason: severe pain)
Hold Instructions: Until you complete pain meds for tooth abscess
Humira Pen 40 mg/0.8 mL Pen Injector Kit
40 mg SC Q2W
Hold Instructions: Until you complete your antibiotics and have tooth extraction performed
Discontinued
ibuprofen [Advil] 200 mg Tablet
200 mg PO Q6HPRN PRN (Reason: mild pain)
Discharge Orders:
Discharge Patient (As Directed); Ordered 06/20/25
Ordered By: Manuel Boston
Discharge Date and Time
Discharge Date/Time: 06/20/25 15:29
Print Language: THAI
== END 2025-06-20 15:29 | disposition home or self-care (01) | DRG 158 ==
LOC: 4 WEST ACU 13:44
PROVIDERS: Physician Assistant; Registered Nurse; ADMITTING PHYSICIAN Hospitalist; ATTENDING PHYSICIAN Internal Medicine; CONSULT PHYSICIAN Dentist Oral and Maxillofacial Surgery; CONSULT PHYSICIAN Internal Medicine Infectious Disease; EMERGENCY PHYSICIAN Emergency Medicine; FAMILY PHYSICIAN Family Medicine
PROC: 5A09357 Assistance with Respiratory Ventilation, Less than 24 Consecutive Hours, Continuous Positive Airway Pressure (ICD-10-PCS; 2025-06-18)
DX: K12.2 Cellulitis and abscess of mouth (principal); D84.821 Immunodeficiency due to drugs; L03.211 Cellulitis of face; E66.2 Morbid (severe) obesity with alveolar hypoventilation; K50.90 Crohn's disease, unspecified, without complications; E11.65 Type 2 diabetes mellitus with hyperglycemia; E66.813 Obesity, class 3; I10 Essential (primary) hypertension; G43.909 Migraine, unspecified, not intractable, without status migrainosus; K21.9 Gastro-esophageal reflux disease without esophagitis; K76.0 Fatty (change of) liver, not elsewhere classified; J44.9 Chronic obstructive pulmonary disease, unspecified; F41.9 Anxiety disorder, unspecified; F17.210 Nicotine dependence, cigarettes, uncomplicated; F32.A Depression, unspecified; D69.6 Thrombocytopenia, unspecified; E78.00 Pure hypercholesterolemia, unspecified; R09.02 Hypoxemia; Z79.620 Long term (current) use of immunosuppressive biologic; Z79.891 Long term (current) use of opiate analgesic; Z79.899 Other long term (current) drug therapy
CPT/HCPCS: 70491; 80048; 80053; 80061; 82962; 83036; 85025; 85027; 87040; 87070; 87205; 93005; 94660; 96365; 96375; 99285; Q9967